=== PATIENT | male | born 1965 | race Hispanic/Latino ===

== ENCOUNTER 2017-02-28 17:55 | Inpatient (IN) | payer OTHER ==
[2017-02-28 17:56] VITALS: BMI 25.1
--- NOTE | 2017-02-28 19:08 | C.PDOC ---
History Of Present Illness A 51 year old male with a Hx of alcohol pancreatitis, diverticulitis, cholecystectomy, and a partial colectomy, presents to the ER c/o burning epigastric pain for 4 days. Patient notes symptoms are worse with food. Patient denies nausea, vomiting, diarrhea, fever, chills, trauma, or any other complaints. Time Seen by Provider: 02/28/17 19:02 Chief Complaint (Nursing): Abdominal Pain History Per: Patient History/Exam Limitations: no limitations Onset/Duration Of Symptoms: Days Current Symptoms Are (Timing): Still Present Severity: Mild Location Of Pain/Discomfort: Epigastric Quality Of Discomfort: Burning Associated Symptoms: denies: Fever, Chills Recent travel outside of the [place]: No Additional History Per: Patient Past Medical History Reviewed: Historical Data, Nursing Documentation, Vital Signs Vital Signs: Last Vital Signs Temp 97 F L 02/28/17 18:16 Pulse 135 H 02/28/17 18:16 Resp 22 02/28/17 18:16 BP 111/81 02/28/17 18:16 Pulse Ox 99 02/28/17 23:12 - Medical History PMH: Anxiety, Arthritis (right hand), Diverticulitis, Gall Bladder Disease, HTN (stable lately, no medication), Pancreatitis Denies: Chronic Kidney Disease Surgical History: Cholecystectomy - [facility] Procedures VACCINATION NEC (04/30/15) Family History: States: Unknown Family Hx - Social History Hx Tobacco Use: Yes Hx Alcohol Use: Yes Hx Substance Use: No - Immunization History Hx Tetanus Toxoid Vaccination: Yes Hx Influenza Vaccination: Yes Hx Pneumococcal Vaccination: Yes Review Of Systems Except As Marked, All Systems Reviewed And Found Negative. Constitutional: Negative for: Fever, Chills, Other (Trauma) Gastrointestinal: Positive for: Abdominal Pain (Epigastric pain). Negative for : Nausea, Vomiting, Diarrhea Physical Exam - Physical Exam Appears: Non-toxic, No Acute Distress Skin: Warm, Dry Head: Atraumatic, Normacephalic Eye(s): bilateral: Normal Inspection Cardiovascular: Rhythm Regular, No Murmur Respiratory: Normal Breath Sounds, No Rales, No Rhonchi, No Wheezing Gastrointestinal/Abdominal: Soft, Tenderness (Epigastric area), Other (Midline surgical scar of the abdomen) Neurological/Psych: Oriented x3, Normal Speech, Normal Cognition ED Course And Treatment - Laboratory Results Result Diagrams: 02/28/17 19:21 05/04/17 19:21 Lab Interpretation: Abnormal (lipase 1655, UA 61 WBC's) ECG: Interpreted By Me, Viewed By Me ECG Rhythm: Sinus Tachycardia (126 bpm) ECG Interpretation: Normal Rate From EC O2 Sat by Pulse Oximetry: 99 (RA) Pulse Ox Interpretation: Normal - Radiology CXR: Interpreted by Me CXR Interpretation: Yes: No Acute Disease - CT Scan/US CT ABd/pelvis Other Rad Studies (CT/US): Radiology Report Reviewed (c/w pancreatitis) Progress Note: rocephin, ivf's, dilaudid Reevaluation Time: 23:10 Reassessment Condition: Improved - Physician Consult Information Outcome Of Conversation: 2309: d/w Hospitalist- Dr. Blackmon- zoya to Med/surg Obs Medical Decision Making Medical Decision Making: Impression: 51 y.o c/o epigastric pain for 4 days Plans: -Blood labs -CT Abd/Pel -Pepcid -IV fluids -Zofran -UA -Reassess and disposition 2309: acute on chronic pancreatitis, ? alcoholic related initially incidental UTI (61 WBC's) Disposition Doctor Will See Patient In The: Hospital Counseled Patient/Family Regarding: Studies Performed, Diagnosis - Disposition Disposition: HOSPITALIZED Disposition Time: 23:11 Condition: GOOD - Clinical Impression Clinical Impression: Acute on chronic pancreatitis, UTI (urinary tract infection) - Scribe Statement The provider has reviewed the documentation as recorded by the Scribe Mana schofield All medical record entries made by the Scribe were at my direction and personally dictated by me. I have reviewed the chart and agree that the record accurately reflects my personal performance of the history, physical exam, medical decision making, and the department course for this patient. I have also personally directed, reviewed, and agree with the discharge instructions and disposition.
[2017-02-28] MEDS ORDERED: Sodium Chloride 0.9% 1,000 ML IV ONE ×2 (19:09→21:37)
[2017-02-28] MEDS ORDERED: Sodium Chloride 0.9% 1,000 ML ONE ×2 (19:22→22:25)
[2017-02-28 19:32] LABS: EOS # 0.1 K/uL (0.0-0.7); LYMPH # 0.8 K/uL (1.0-4.3); MEAN PLATELET VOLUME 9.1 fL (7.2-11.7); WHITE BLOOD COUNT 10.9 K/uL (4.8-10.8)
[2017-02-28 19:40] LABS: BASO % 0.1 % (0.0-2.0); EOS % 0.5 % (0.0-4.0); HEMATOCRIT 51.7 % (35.0-51.0); LYMPH % 7.7 % (20.0-40.0); MEAN CORPUSCULAR HEMOGLOBIN 27.7 pg (27.0-31.0); MEAN CORPUSCULAR HGB CONC 32.8 g/dL (33.0-37.0); MONO # 0.9 K/uL (0.0-0.8); MONO % 7.9 % (0.0-10.0); NRBC % 0.1 % (0.0-2.0); PLATELET COUNT 198 K/uL (130-400); POTASSIUM 3.7 mmol/L (3.6-5.2); RED CELL DISTRIBUTION WIDTH 17.2 % (11.5-14.5); SODIUM 130 mmol/L (132-148)
[2017-02-28 19:41] LABS: MEAN CELL VOLUME 84.6 fL (80.0-94.0)
[2017-02-28 19:42] LABS: ALB/GLOB RATIO 1.3 (1.0-2.1); ALKALINE PHOSPHATASE 83 U/L (38-126); ALT/SGPT 34 U/L (21-72); AST/SGOT 30 U/L (17-59); BLOOD UREA NITROGEN 20 mg/dL (9-20); CARBON DIOXIDE 22 mmol/L (22-30); GFR AFRICAN-AMERICAN > 60; TOTAL PROTEIN 8.1 g/dL (6.3-8.3)
[2017-02-28 19:43] LABS: ALCOHOL SERUM < 10 mg/dl (0-10); CALCIUM 9.7 mg/dl (8.6-10.4); GLUCOSE,RANDOM 115 mg/dL (75-110)
[2017-02-28] MEDS ORDERED: HYDROmorphone 0.5 mg/0.5 ml ISec IVP STA (20:16)
[2017-02-28] MEDS ORDERED: HYDROmorphone 1 mg/ml ISec ONE (20:23)
[2017-02-28 21:30] LABS: RBC URINE 9 /hpf (0-3); URINE BACTERIA MOD (<OCC); URINE BILIRUBIN 1+ (NEGATIVE); URINE BLOOD TRACE (NEGATIVE); URINE COLOR YELLOW (YELLOW); URINE GLUCOSE (UA) 1+ mg/dL (Normal); URINE HYALINE CAST >20 /lpf (0-2); URINE KETONE 1+ mg/dL (NEGATIVE); URINE LEUKOCYTE ESTERASE 2+ Leu/uL (Negative); URINE PROTEIN 2+ mg/dL (NEGATIVE); WBC CLUMPS FEW /hpf; WBC URINE 61 /hpf (0-5)
[2017-02-28] MEDS ORDERED: cefTRIAXone IV 1 gm in Dextros 50 ML IV ONE (21:38)
[2017-02-28] MEDS ORDERED: cefTRIAXone IV 1 gm in Dextros 50 ML IVPB ONE (22:25)
[2017-02-28 22:40] LABS: NEUTROPHIL 85 % (50-75); SMUDGE CELLS PRESENT; TOTAL CELLS COUNTED 100
[2017-02-28 22:42] LABS: LARGE PLATELETS PRESENT
[2017-03-01 00:44] VITALS: RESP 20
--- NOTE | 2017-03-01 02:48 | CP.PCM.HP ---
<Clif Rausch - Last Filed: 03/01/17 05:31> History of Present Illness - History of Present Illness History of Present Illness: CC: Abdominal pain x 4days HPI: 51 year old male with a PMHx of Acute on chronic pancreatitis, GERD, perforated diverticulitis, cholelithiasis with dilate CBD s/p cholecystectomy - presents c/o burning epigastric pain for 4 days. Patient states he developed abdominal pain [employer] morning, similar to prior episodes of pancreatitis. He attributes this episode to indulging in fatty foods over the weekend. He did not eat or drink in attempt to self treat himself for the pancreatitis. His pain continued to worsen, described as sharp, constant, and radiating to the back. Pain is rated a 9/10. He has not had a bowel movement in 5 days, attributed to not eating. Admits to f/c, diaphoresis, dizziness, abdominal pain radiating to back, nausea with dry heaves, and recent travel to [place]. He had similar symptoms that caused him to present to the ED on 04/13/14, 05/03/15, , and 05/27/16. He attributes his recurrent pancreatitis to his cholecystectomy 3 years ago. Denies change in vision, chest pain, SOB, vomiting , d/c, leg pain, recent sickness, trauma, or any additional complaints. PMHx: Acute on chronic pancreatitis, GERD, perforated diverticulitis, cholelithiasis with dilate CBD s/p cholecystectomy PSHx: partial colectomy with colostomy reversal, EGD, Colonoscopy (many years ago -> "normal") Meds: Prilosec 20mg PO qd. Allergies: Shellfish (hives) FamHx: unknown, adopted SocHx: Admits to ETOH cessation x 3 years. Admits he used to karen-drink on weekends with friends. Tobacco 3 cig/d x4yrs (previously 1/2ppd x25yrs). Denies drug use, lives in [facility], Unemployed former insulation worker apprentice. PMD: none Present on Admission - Present on Admission Any Indicators Present on Admission: No Review of Systems - Review of Systems Review of Systems: - Constitutional Constitutional: Chills, Fever, Diaphoresis. absent: Anorexia, Headache, Weight Loss. - EENT Eyes: absent: Blurred Vision, Diplopia, Photophobia Ears: absent: Ear Discharge, Ear Pain Nose/Mouth/Throat: absent: Dysphagia, Odynophagia, Tongue Swelling - Cardiovascular Cardiovascular: absent: Lightheadedness, Orthopnea, Palpitations, Paroxysmal Nocturnal Dyspnea, Pedal Edema - Respiratory Respiratory: absent: Hemoptysis, Dyspnea on Exertion, Chest Congestion - Gastrointestinal Gastrointestinal: Abdominal Pain, Bloating, Heartburn, Nausea. absent: Coffee Ground Emesis, Diarrhea, Dysphagia, Hematemesis, Hematochezia, Loose Stools, Melena, Odynophagia - Genitourinary Genitourinary: absent: Urinary Frequency, Urinary Urgency - Musculoskeletal Musculoskeletal: absent: Back Pain, Neck Pain, Numbness - Integumentary Integumentary: absent: Changing Lesions, Photosensitivity - Neurological Neurological: absent: Confusion, Focal Weakness, Headaches, Paresthesias - Psychiatric Psychiatric: absent: Confusion, Hallucinations - Endocrine Endocrine: absent: Excessive Sweating, Fatigue, Flushing, Palpitations, Polydipsia, Polyphagia - Hematologic/Lymphatic Hematologic: absent: Easy Bleeding, Easy Bruising Past Patient History - Infectious Disease Hx of Infectious Diseases: None - Past Medical History & Family History Past Medical History?: Yes - Past Social History Smoking Status: Current Some Days Smoker - CARDIAC Hx Cardiac Disorders: Yes Hx Hypertension: Yes (stable lately, no medication) - PULMONARY Hx Respiratory Disorders: No - NEUROLOGICAL Hx Neurological Disorder: No - HEENT Hx HEENT Problems: No - RENAL Hx Chronic Kidney Disease: No - ENDOCRINE/METABOLIC Hx Endocrine Disorders: No Hx Diabetes Mellitus Type 2: No - HEMATOLOGICAL/ONCOLOGICAL Hx Blood Disorders: No - INTEGUMENTARY Hx Dermatological Problems: No - MUSCULOSKELETAL/RHEUMATOLOGICAL Hx Musculoskeletal Disorders: Yes Hx Arthritis: Yes (right hand) Hx Falls: Yes - GASTROINTESTINAL Hx Gastrointestinal Disorders: Yes Hx Diverticulitis: Yes Hx Gall Bladder Disease: Yes Hx Pancreatitis: Yes - GENITOURINARY/GYNECOLOGICAL Hx Genitourinary Disorders: No - PSYCHIATRIC Hx Psychophysiologic Disorder: Yes Hx Anxiety: Yes Hx Substance Use: No - SURGICAL HISTORY Hx Surgeries: Yes Hx Cholecystectomy: Yes - ANESTHESIA Hx Anesthesia: Yes Hx Anesthesia Reactions: No Hx Malignant Hyperthermia: No Meds Allergies/Adverse Reactions: Allergies Allergy/AdvReac Type Severity Reaction Status Date / Time iodine Allergy Verified 02/28/17 18:15 morphine Allergy Verified 02/28/17 18:15 shellfish derived Allergy Verified 02/28/17 18:15 Physical Exam - Additional Findings Additional findings: - Head Exam Head Exam: ATRAUMATIC, NORMOCEPHALIC - Eye Exam Eye Exam: EOMI, PERRL Pupil Exam: PERRL. absent: Miosis, Mydriatic - ENT Exam ENT Exam: Mucous Membranes Dry - Neck Exam Neck exam: Positive for: Full Rom, Normal Inspection - Respiratory Exam Respiratory Exam: Clear to Auscultation Bilateral. absent: Rales, Rhonchi, Wheezes - Cardiovascular Exam Cardiovascular Exam: RRR, +S1, +S2. absent: Clicks, Diastolic murmur, Gallop - GI/Abdominal Exam GI & Abdominal Exam: Normal Bowel Sounds, Soft, Tenderness. absent: Distended, Firm, Guarding, Mass, Organomegaly, Rebound, Rigid Additional comments: -tenderness at epigastrium with radiation into the back. -Vertical mid-line incision. Horizontal LLQ incision (from colostomy). - Extremities Exam Extremities exam: Positive for: normal inspection. Negative for: pedal edema - Neurological Exam Neurological exam: Alert, Oriented x3 - Psychiatric Exam Psychiatric exam: Normal Affect, Normal Mood - Skin Skin Exam: Dry, Intact, Warm Results - Vital Signs Recent Vital Signs: Last Vital Signs Temp 98.5 F 03/01/17 00:41 Pulse 106 H 03/01/17 00:41 Resp 20 03/01/17 00:41 BP 116/79 03/01/17 00:41 Pulse Ox 130 H 03/01/17 00:41 - Labs Result Diagrams: 02/28/17 19:21 02/28/17 19:21 Assessment & Plan - Assessment and Plan (Free Text) Assessment: Pancreatitis, Acute on Chronic -Dilaudid 0.5mg IVP Q4H, PRN -D5-NS0.9-KCl 20 at 150cc/hr -Zofran 4mg IVP Q6H PRN -Abd US in AM -GI Consult, Dr. Orellana, f/u recs -Protonix 40mg IVP qd -Lipase 1655 on admission, Tibili 2, WBC 10.9 -AST/ALT/Alk P - WNL -NPO -EKG - sinus tachy -CXR - no acute disease -f/u labs, amylase, lipase -f/u CT abd/pelvis IV Contrast (pending read) - prelim read c/w pancreatitis. Dehydration -D5,NS-KCl 20 at 150cc/hr -Na 130, K3.7, anion gap 29 -> likely due to dehydration -Hgb 16.9 / Hct 51.7 -> most likely heme-concentration due to dehydration -monitor Asymptomatic UTI -UA(+) however patient is asymptomatic -Tx with Rocephin in the ED -monitor GERD -does not take home prilosec consistently -Protonix 40mg IVP qd -monitor Prophylaxis -SCDs -Hep 5000u SC Q12 -Protonix 40mg IVP qd - Date & Time Date: 02/28/17 Time: 11:30 <Yann Blackmon - Last Filed: 03/05/17 05:49> Results - Vital Signs Recent Vital Signs: Last Vital Signs Temp 98.4 F 03/03/17 08:41 Pulse 78 03/03/17 08:41 Resp 20 03/03/17 08:41 BP 145/88 03/03/17 08:41 Pulse Ox 98 03/03/17 08:41 - Labs Result Diagrams: 03/03/17 07:44 03/03/17 07:44 Attending/Attestation - Attestation I have personally seen and examined this patient.: Yes I have fully participated in the care of the patient.: Yes I have reviewed all pertinent clinical information: Yes
[2017-03-01] MEDS: HYDROmorphone 0.5 mg/0.5 ml ISec IVP PRN ×5 (03:18→23:06)
[2017-03-01] MEDS: Potassium Chloride 20 MEQ in Dextrose 5%/0.9% NS 1,000 ML IV SCH ×6 (03:27→22:17)
[2017-03-01 08:55] LABS: BASO % 0.3 % (0.0-2.0); EOS # 0.1 K/uL (0.0-0.7); EOS % 2.1 % (0.0-4.0); HEMATOCRIT 43.5 % (35.0-51.0); LYMPH # 1.3 K/uL (1.0-4.3); LYMPH % 19.8 % (20.0-40.0); MEAN CELL VOLUME 85.3 fL (80.0-94.0); MEAN CORPUSCULAR HEMOGLOBIN 27.7 pg (27.0-31.0); MEAN CORPUSCULAR HGB CONC 32.5 g/dL (33.0-37.0); MEAN PLATELET VOLUME 8.9 fL (7.2-11.7); MONO # 0.7 K/uL (0.0-0.8); MONO % 11.5 % (0.0-10.0); NRBC % 0.1 % (0.0-2.0); RED CELL DISTRIBUTION WIDTH 16.9 % (11.5-14.5); WHITE BLOOD COUNT 6.4 K/uL (4.8-10.8)
[2017-03-01 09:11] LABS: CHLORIDE 98 mmol/L (98-107); POTASSIUM 3.4 mmol/L (3.6-5.2); SODIUM 133 mmol/L (132-148)
[2017-03-01 09:13] LABS: ALB/GLOB RATIO 1.2 (1.0-2.1); ALKALINE PHOSPHATASE 61 U/L (38-126); AMYLASE 191 U/L (30-110); AST/SGOT 25 U/L (17-59); BILIRUBIN,TOTAL 1.6 mg/dL (0.2-1.3); CARBON DIOXIDE 23 mmol/L (22-30); GFR AFRICAN-AMERICAN > 60; TOTAL PROTEIN 6.5 g/dL (6.3-8.3)
[2017-03-01 09:14] LABS: ALT/SGPT 16 U/L (21-72); BLOOD UREA NITROGEN 15 mg/dL (9-20); CALCIUM 8.5 mg/dl (8.6-10.4); GLUCOSE,RANDOM 93 mg/dL (75-110); MAGNESIUM 1.8 mg/dL (1.6-2.3); PHOSPHOROUS 2.9 mg/dL (2.5-4.5)
--- NOTE | 2017-03-01 10:10 | CT ---
PROCEDURE: CT Abdomen and Pelvis with contrast HISTORY: epigastric, h/o pancreatitis, colectomy COMPARISON: Comparison is made to the previous study dated 04/30/2015 TECHNIQUE: Contrast dose: 100 cc Visipaque 320. Axial and reformatted coronal and sagittal CT images of the abdomen and pelvis were obtained after IV contrast administration. Radiation dose: Total exam DLP = 414.98 mGy-cm. This CT exam was performed using one or more of the following dose reduction techniques: Automated exposure control, adjustment of the mA and/or kV according to patient size, and/or use of iterative reconstruction technique. FINDINGS: LOWER THORAX: No evidence of acute pathology. LIVER: Mild hepatomegaly and findings consistent with moderate hepatic steatosis are again noted. No evidence of liver mass. GALLBLADDER AND BILE DUCTS: Status post cholecystectomy. Mildly dilated common bile duct. PANCREAS: Moderate inflammatory changes surrounding the pancreatic body and head consistent with acute pancreatitis. Scattered foci of calcifications seen in the pancreas suggestive of chronic pancreatitis. The main pancreatic duct is mildly dilated. SPLEEN: Unremarkable. ADRENALS: Unremarkable. No mass. KIDNEYS AND URETERS: Low-attenuation likely cystic lesions seen at the mid to upper pole left kidney. No evidence of hydronephrosis. The kidneys enhance symmetrically. VASCULATURE: Unremarkable. No aortic aneurysm. BOWEL: No evidence of acute pathology. Colonic diverticulosis are noted without evidence of diverticulitis. APPENDIX: No evidence of appendicitis. PERITONEUM: Trace free fluid seen in the upper abdomen likely due to acute pancreatitis. No evidence of free air. LYMPH NODES: Unremarkable. No enlarged lymph nodes. BLADDER: The urinary bladder is not fully distended therefore cannot be evaluated. REPRODUCTIVE: Unremarkable. BONES: No acute fracture. Again seen is dislocation/subluxation in between 1st and 2nd vertebrae of the coccyx. OTHER FINDINGS: None. IMPRESSION: Findings consistent with acute pancreatitis. Trace amount of free fluid in the upper abdomen. Foci of calcification in the pancreas consistent with chronic pancreatitis. Mildly dilated main pancreatic duct. Otherwise no significant interval change since the previous exam. Preliminary report was submitted by [facility].
[2017-03-01 11:07] LABS: INR 1.3
--- NOTE | 2017-03-01 11:59 | CP.PCM.CON ---
<Colleen Powers - Last Filed: 03/01/17 12:46> History of Present Illness - History of Present Illness History of Present Illness: Gastroenterology Fellow/PGY4 Consult Note 51 year old male with history of tobacco abuse, perforated diverticulitis s/p partial colectomy and colostomy reversal, chronic pancreatitis with recurrent flare, tobacco abuse, dialted CBD s/p cholecystectomy presenting with epigastric pain. He describes sudden onset of stabbing epigastric pain Saturday morning with progressive worsening, pain scale 9/10, leading to ER presentation on Saturday. Notes eating a lot of cheese base foods on Saturday at a constitution party but enies alcohol intake with endorsed sobriety for three years. Notes symptoms similar to prior pancreatitis episodes. similar to prior episodes of pancreatitis. He did not eat or drink in attempt to self treat himself for pancreatitis. Attempted self treatment by not eating or drinking since Saturday with no relief. Last bowel movement was Saturday with udual daily bowel movements. Denies nausea, vomiting, hematemesis, diarrhea, constipation, hematochezia, melena, chills, sweats, or unintentional weight loss. Notes a ten pound intentional weight loss. Prior EGD and colonoscopy/sigmoidoscopy? endorsed to be normal over ten years ago. Family-adopted, believes mother- breast cancer, cholecystectomy, possible pancreatic issues? Social-previous 1ppd x 30 years, current 3 cigarettes/day x 1 year, quit ETOH 3 years, denies illicit drugs Surgery-colectomy with colostomy reversal, cholecystectomy Review of Systems - Review of Systems Review of Systems: A 12-point review of systems negative except for as above Past Patient History - Infectious Disease Hx of Infectious Diseases: None - Past Medical History & Family History Past Medical History?: Yes - Past Social History Smoking Status: Current Some Days Smoker - CARDIAC Hx Cardiac Disorders: Yes Hx Hypertension: Yes (stable lately, no medication) - PULMONARY Hx Respiratory Disorders: No - NEUROLOGICAL Hx Neurological Disorder: No - HEENT Hx HEENT Problems: No - RENAL Hx Chronic Kidney Disease: No - ENDOCRINE/METABOLIC Hx Endocrine Disorders: No Hx Diabetes Mellitus Type 2: No - HEMATOLOGICAL/ONCOLOGICAL Hx Blood Disorders: No - INTEGUMENTARY Hx Dermatological Problems: No - MUSCULOSKELETAL/RHEUMATOLOGICAL Hx Musculoskeletal Disorders: Yes Hx Arthritis: Yes (right hand) Hx Falls: Yes - GASTROINTESTINAL Hx Gastrointestinal Disorders: Yes Hx Diverticulitis: Yes Hx Gall Bladder Disease: Yes Hx Pancreatitis: Yes - GENITOURINARY/GYNECOLOGICAL Hx Genitourinary Disorders: No - PSYCHIATRIC Hx Psychophysiologic Disorder: Yes Hx Anxiety: Yes Hx Substance Use: No - SURGICAL HISTORY Hx Surgeries: Yes Hx Cholecystectomy: Yes - ANESTHESIA Hx Anesthesia: Yes Hx Anesthesia Reactions: No Hx Malignant Hyperthermia: No Meds Allergies/Adverse Reactions: Allergies Allergy/AdvReac Type Severity Reaction Status Date / Time iodine Allergy Verified 02/28/17 18:15 morphine Allergy Verified 02/28/17 18:15 shellfish derived Allergy Verified 02/28/17 18:15 - Medications Medications: Current Medications Heparin Sodium (Porcine) (Heparin) 5,000 units SC Q12 [facility] Last Admin: 03/01/17 11:29 Dose: 5,000 units Hydromorphone HCl (Dilaudid) 0.5 mg IVP Q4H PRN PRN Reason: Pain, moderate (4-7) Last Admin: 03/01/17 09:34 Dose: 0.5 mg Potassium Chloride 20 meq/ (Dextrose/Sodium Chloride) 1,010 mls @ 200 mls/hr IV .Q5H3M [facility] Last Admin: 03/01/17 11:11 Dose: Not Given Ondansetron HCl (Zofran Inj) 4 mg IVP Q6H PRN PRN Reason: Nausea/Vomiting Pantoprazole Sodium (Protonix Inj) 40 mg IVP DAILY [facility] Last Admin: 03/01/17 09:36 Dose: 40 mg Physical Exam - Constitutional Appears: Non-toxic, No Acute Distress - Head Exam Head Exam: ATRAUMATIC, NORMOCEPHALIC - Eye Exam Eye Exam: EOMI, PERRL Pupil Exam: PERRL. absent: Miosis, Mydriatic - ENT Exam ENT Exam: Mucous Membranes Moist, Normal Oropharynx - Neck Exam Neck exam: Positive for: Full Rom, Normal Inspection - Respiratory Exam Respiratory Exam: Clear to Auscultation Bilateral. absent: Rales, Rhonchi, Wheezes - Cardiovascular Exam Cardiovascular Exam: RRR, +S1, +S2. absent: Gallop, Rubs - GI/Abdominal Exam GI & Abdominal Exam: Normal Bowel Sounds, Organomegaly, Soft, Tenderness. absent: Firm, Guarding, Rebound, Rigid Additional comments: hepatomegaly, B/L UQ and mid-epigastric discomfort - Extremities Exam Extremities exam: Positive for: full ROM. Negative for: pedal edema - Neurological Exam Neurological exam: Alert, Oriented x3 - Psychiatric Exam Psychiatric exam: Normal Affect, Normal Mood - Skin Skin Exam: Dry, Intact, Normal Color, Warm Results - Vital Signs Recent Vital Signs: Last Vital Signs Temp 98.6 F 03/01/17 08:21 Pulse 100 H 03/01/17 08:21 Resp 20 03/01/17 08:21 BP 133/76 03/01/17 08:21 Pulse Ox 99 03/01/17 08:21 - Labs Result Diagrams: 03/01/17 08:32 03/01/17 08:32 Labs: Laboratory Results - last 24 hr 03/01/17 03/01/17 03/01/17 08:32 08:32 08:32 WBC 6.4 RBC 5.10 Hgb 14.1 D Hct 43.5 MCV 85.3 MCH 27.7 MCHC 32.5 L RDW 16.9 H Plt Count 137 MPV 8.9 Neut % (Auto) 66.3 Lymph % (Auto) 19.8 L Graves % (Auto) 11.5 H Eos % (Auto) 2.1 Baso % (Auto) 0.3 Neut # 4.2 Lymph # 1.3 Graves # 0.7 Eos # 0.1 Baso # 0.0 PT 14.2 H INR 1.3 APTT 38 H Sodium 133 Potassium 3.4 L Chloride 98 Carbon Dioxide 23 Anion Gap 15 BUN 15 Creatinine 0.6 L Est GFR ( Amer) > 60 Est GFR (Non-Af Amer) > 60 Random Glucose 93 Calcium 8.5 L Phosphorus 2.9 Magnesium 1.8 Total Bilirubin 1.6 H AST 25 ALT 16 L D Alkaline Phosphatase 61 Total Protein 6.5 Albumin 3.6 Globulin 2.9 Albumin/Globulin Ratio 1.2 Amylase 191 H D Lipase 449 H Assessment & Plan - Assessment and Plan (Free Text) Assessment: 51 year old male with history of tobacco abuse, perforated diverticulitis s/p partial colectomy and colostomy reversal, chronic pancreatitis with recurrent flare, tobacco abuse, dialted CBD s/p cholecystectomy presenting with epigastric pain. Active treatment of acute on chronic pancreatitis. Prior EGD and colonoscopy/sigmoidoscopy? endorsed to be normal over ten years ago. Plan: >MRCP 2015- 4.4cm pancreatic tail lesion/pseudocyst >CT Pancreas protocol April 2016- no lesions noted >02/28/17 CT A/P IV contrast- pancreatic body inflammation >continue aggressive IVFs- LR 200cc/hr >pending abdominal Ultrasound >ordered IgG4, direct bilirubin >trial clear liquids for dinner, advance diet as tolerated >supportive care: antiemetics, pain control, PPI >negative ETOH, urine drug screen >lost to outpatient follow up 04/2016 >counselled on tobacco cessation >endorsed alcohol sobriety, counselled on cessation >UTI-primary team managing >further recommendations based on clinical course <Chavez Dhillon - Last Filed: 03/01/17 12:54> Meds - Medications Medications: Current Medications Heparin Sodium (Porcine) (Heparin) 5,000 units SC Q12 [facility] Last Admin: 03/01/17 11:29 Dose: 5,000 units Hydromorphone HCl (Dilaudid) 0.5 mg IVP Q4H PRN PRN Reason: Pain, moderate (4-7) Last Admin: 03/01/17 09:34 Dose: 0.5 mg Potassium Chloride 20 meq/ (Dextrose/Sodium Chloride) 1,010 mls @ 200 mls/hr IV .Q5H3M [facility] Last Admin: 03/01/17 11:11 Dose: Not Given Ondansetron HCl (Zofran Inj) 4 mg IVP Q6H PRN PRN Reason: Nausea/Vomiting Pantoprazole Sodium (Protonix Inj) 40 mg IVP DAILY [facility] Last Admin: 03/01/17 09:36 Dose: 40 mg Results - Vital Signs Recent Vital Signs: Last Vital Signs Temp 98.6 F 03/01/17 08:21 Pulse 100 H 03/01/17 08:21 Resp 20 03/01/17 08:21 BP 133/76 03/01/17 08:21 Pulse Ox 99 03/01/17 08:21 - Labs Result Diagrams: 03/01/17 08:32 03/01/17 08:32 Labs: Laboratory Results - last 24 hr 03/01/17 03/01/17 03/01/17 08:32 08:32 08:32 WBC 6.4 RBC 5.10 Hgb 14.1 D Hct 43.5 MCV 85.3 MCH 27.7 MCHC 32.5 L RDW 16.9 H Plt Count 137 MPV 8.9 Neut % (Auto) 66.3 Lymph % (Auto) 19.8 L Graves % (Auto) 11.5 H Eos % (Auto) 2.1 Baso % (Auto) 0.3 Neut # 4.2 Lymph # 1.3 Graves # 0.7 Eos # 0.1 Baso # 0.0 PT 14.2 H INR 1.3 APTT 38 H Sodium 133 Potassium 3.4 L Chloride 98 Carbon Dioxide 23 Anion Gap 15 BUN 15 Creatinine 0.6 L Est GFR ( Amer) > 60 Est GFR (Non-Af Amer) > 60 Random Glucose 93 Calcium 8.5 L Phosphorus 2.9 Magnesium 1.8 Total Bilirubin 1.6 H AST 25 ALT 16 L D Alkaline Phosphatase 61 Total Protein 6.5 Albumin 3.6 Globulin 2.9 Albumin/Globulin Ratio 1.2 Amylase 191 H D Lipase 449 H Attending/Attestation - Attestation I have personally seen and examined this patient.: Yes I have fully participated in the care of the patient.: Yes I have reviewed all pertinent clinical information: Yes Notes (Text): Patient seen and examined with GI fellow. Agree with her note as documented above with the following additions/exceptions. This is a 51 year old male with history of perforated diverticulitis s/p partial colectomy and colostomy reversal, chronic pancreatitis, h/o cholecystectomy who is admitted with abdominal pain. He also has history of pancreatic fluid collection/cyst seen on previous imaging (2014) that was no longer present on MRCP 2016. He has had 4-5 episodes of pancreatitis (he states that these started after cholecystectomy). He reports that in between these episodes he has no GI complaints. No weight loss or diarrhea. He denies ETOH consumption prior to this episode. He is found to have CT evidence of pancreatitis with elevated lipase and T bili. Will obtain abdominal sonogram for further investigation. Fractionate bili and obtain IGG4 level. He states that his abdominal pain is overall improved today , will try clear liquids. Continue supportive care with IVF hydration, pain control and antiemetic thera py as needed. He was counselled about importance of ETOH avoidance and cessation of cigarette smoking. 03/01/17 12:53
--- NOTE | 2017-03-01 13:06 | US ---
HISTORY: Pancreatitis COMPARISON: 05/24/2016 abdominal ultrasound. TECHNIQUE: Sonographic evaluation of the abdomen. FINDINGS: LIVER: Measures 15.5 cm. Hepatopedal blood flow. Fatty infiltration manifest ultrasonographically as increased echogenicity of the liver parenchyma. No mass. No intrahepatic bile duct dilatation. GALLBLADDER: Status post cholecystectomy. No abnormality is seen in the gallbladder fossa. COMMON BILE DUCT: Measures 10.6 mm. Dilated common duct similar to that seen on the prior study. PANCREAS: Obscured by overlying bowel gas. Non diagnostic assessment of the pancreas RIGHT KIDNEY: Measures 6.3 x 13.1cm. Normal echogenicity. No calculus, mass, or hydronephrosis. LEFT KIDNEY: Measures 6.4 x 13.8cm. Normal echogenicity. No calculus, mass, or hydronephrosis.Incidental finding(s): Midpole cysts 1.2 x 1.5 cm, 1.2 x 1.52 cm. SPLEEN: Normal in size and contour. No mass. AORTA: No aneurysmal dilatation. IVC: Unremarkable. OTHER FINDINGS: No acute findings related to/accounting for the clinical presentation. No significant interval change compared to the prior examination(s). IMPRESSION: Unremarkable abdominal sonogram.
--- NOTE | 2017-03-01 16:18 | RAD ---
PROCEDURE: CHEST RADIOGRAPH, 1 VIEW HISTORY: abd pain COMPARISON: Comparison is made to the previous study dated 05/24/2016 FINDINGS: LUNGS: Clear. PLEURA: No pneumothorax or pleural fluid seen. CARDIOVASCULAR: Normal. OSSEOUS STRUCTURES: No significant abnormalities. VISUALIZED UPPER ABDOMEN: Normal. OTHER FINDINGS: None. IMPRESSION: No active disease.
--- NOTE | 2017-03-01 17:08 | CARD ---
APPROVED REPORT EKG Measurement Heart [id number] <Conclusion> Sinus tachycardia Otherwise normal ECG
[2017-03-01 17:24] LABS: CHLORIDE 89 mmol/L (98-107)
--- NOTE | 2017-03-01 18:08 | CP.PCM.PN ---
<Vivek Delgadilloy - Last Filed: 03/01/17 18:04> Subjective - Date & Time of Evaluation Date of Evaluation: 03/01/17 Time of Evaluation: 07:45 - Subjective Subjective: PGY-1 Medicine Progress Note for Dr. Parnell Patient seen and examined at bedside. No acute event overnight. Patient resting in bed comfortably. He is still complaining of epigastric pain radiating to back. He states that it is controlled with morphine. Patient is NPO. Admits to nausea but no vomiting. Denies fever/chills, cp, sob, palpitations, diarrhea, constipation. Objective - Vital Signs/Intake and Output Vital Signs (last 24 hours): Temp Pulse Resp BP Pulse Ox 98.6 F 100 H 20 133/76 99 03/01/17 08:21 03/01/17 08:21 03/01/17 08:21 03/01/17 08:21 03/01/17 08:21 Intake and Output: 03/01/17 03/01/17 06:59 18:59 Intake Total 1900 Balance 1900 - Medications Medications: Current Medications Heparin Sodium (Porcine) (Heparin) 5,000 units SC Q12 [facility] Last Admin: 03/01/17 11:29 Dose: 5,000 units Hydromorphone HCl (Dilaudid) 0.5 mg IVP Q4H PRN PRN Reason: Pain, moderate (4-7) Last Admin: 03/01/17 15:01 Dose: 0.5 mg Potassium Chloride 20 meq/ (Dextrose/Sodium Chloride) 1,010 mls @ 200 mls/hr IV .Q5H3M [facility] Last Admin: 03/01/17 16:14 Dose: 200 mls/hr Ceftriaxone Sodium (Rocephin Iv 1 Gm Duplex) 50 mls @ 100 mls/hr IVPB Q12 [facility] Ondansetron HCl (Zofran Inj) 4 mg IVP Q6H PRN PRN Reason: Nausea/Vomiting Pantoprazole Sodium (Protonix Inj) 40 mg IVP DAILY [facility] Last Admin: 03/01/17 09:36 Dose: 40 mg - Labs Labs: 03/01/17 08:32 03/01/17 08:32 PT 14.2 SECONDS (9.7-12.2) H 03/01/17 08:32 INR 1.3 03/01/17 08:32 APTT 38 SECONDS (21-34) H 03/01/17 08:32 - Constitutional Appears: No Acute Distress - Head Exam Head Exam: ATRAUMATIC, NORMOCEPHALIC - Eye Exam Eye Exam: EOMI, Normal appearance. absent: Scleral icterus Pupil Exam: PERRL - ENT Exam ENT Exam: Mucous Membranes Moist - Neck Exam Neck Exam: Normal Inspection - Respiratory Exam Respiratory Exam: Clear to Ausculation Bilateral, NORMAL BREATHING PATTERN - Cardiovascular Exam Cardiovascular Exam: REGULAR RHYTHM, +S1, +S2 - GI/Abdominal Exam GI & Abdominal Exam: Soft, Tenderness, Normal Bowel Sounds. absent: Distended, Firm, Guarding, Rigid, Rebound - Extremities Exam Extremities Exam: Normal Capillary Refill - Back Exam Back Exam: absent: CVA tenderness (L), CVA tenderness (R) - Neurological Exam Neurological Exam: Alert, Awake, CN II-XII Intact, Oriented x3 - Psychiatric Exam Psychiatric exam: Normal Affect, Normal Mood - Skin Skin Exam: Dry, Intact, Normal Color, Warm Assessment and Plan - Assessment and Plan (Free Text) Plan: Pancreatitis, Acute on Chronic Dilaudid 0.5mg IVP Q4H, PRN D5-NS0.9-KCl 20 at 200cc/hr Zofran 4mg IVP Q6H PRN Abd US: Unremarkable abdominal sonogram. (see full report) GI Consult, Dr. Orellana, f/u recs Protonix 40mg IVP qd Lipase 1655 on admission IgG subclass 4 AST/ALT/Alk P - WNL NPO EKG - sinus tachy CXR - no acute disease f/u labs daily CT abd/pelvis IV Contrast: acute on chronic pancreatitis (see full report) Dehydration D5,NS-KCl 20 at 150cc/hr monitor electrolytes Asymptomatic UTI UA(+) however patient is asymptomatic Tx with Rocephin urine culture gram negative rods monitor GERD does not take home prilosec consistently Protonix 40mg IVP qd monitor Prophylaxis SCDs Hep 5000u SC Q12 Protonix 40mg IVP qd <Rafita Parnell - Last Filed: 03/30/17 10:17> Objective - Vital Signs/Intake and Output Vital Signs (last 24 hours): Temp Pulse Resp BP Pulse Ox 98.4 F 78 20 145/88 98 03/03/17 08:41 03/03/17 08:41 03/03/17 08:41 03/03/17 08:41 03/03/17 08:41 - Labs Labs: 03/03/17 07:44 03/03/17 07:44 PT 14.2 SECONDS (9.7-12.2) H 03/01/17 08:32 INR 1.3 03/01/17 08:32 APTT 38 SECONDS (21-34) H 03/01/17 08:32 Attending/Attestation - Attestation I have personally seen and examined this patient.: Yes I have fully participated in the care of the patient.: Yes I have reviewed all pertinent clinical information, including history, physical exam and plan: Yes Notes (Text): Patient seen and examined with the resident. Agree with the resident's evaluation, assessment and plan. Pancreatitis, Acute on Chronic Dehydration Asymptomatic UTI
[2017-03-01] MEDS: cefTRIAXone IV 1 gm in Dextros 50 ML IVPB SCH (21:09)
[2017-03-02] MEDS: Potassium Chloride 20 MEQ in Dextrose 5%/0.9% NS 1,000 ML IV SCH ×6 (01:20→21:28)
[2017-03-02] MEDS: HYDROmorphone 0.5 mg/0.5 ml ISec IVP PRN ×4 (06:40→21:21)
[2017-03-02 07:24] LABS: BASO % 0.8 % (0.0-2.0); EOS # 0.1 K/uL (0.0-0.7); EOS % 3.5 % (0.0-4.0); HEMATOCRIT 43.3 % (35.0-51.0); LYMPH # 1.1 K/uL (1.0-4.3); MEAN CELL VOLUME 86.2 fL (80.0-94.0); MEAN CORPUSCULAR HEMOGLOBIN 27.8 pg (27.0-31.0); MEAN CORPUSCULAR HGB CONC 32.2 g/dL (33.0-37.0); MEAN PLATELET VOLUME 9.4 fL (7.2-11.7); MONO # 0.5 K/uL (0.0-0.8); MONO % 13.8 % (0.0-10.0); NRBC % 0.2 % (0.0-2.0); RED CELL DISTRIBUTION WIDTH 16.7 % (11.5-14.5); WHITE BLOOD COUNT 3.8 K/uL (4.8-10.8)
[2017-03-02 07:34] LABS: CHLORIDE 98 mmol/L (98-107); POTASSIUM 3.6 mmol/L (3.6-5.2); SODIUM 136 mmol/L (132-148)
[2017-03-02 07:36] LABS: ALB/GLOB RATIO 1.1 (1.0-2.1); AMYLASE 92 U/L (30-110); AST/SGOT 32 U/L (17-59); BLOOD UREA NITROGEN 4 mg/dL (9-20); CARBON DIOXIDE 28 mmol/L (22-30); GFR AFRICAN-AMERICAN > 60; TOTAL PROTEIN 6.2 g/dL (6.3-8.3)
[2017-03-02 07:37] LABS: ALKALINE PHOSPHATASE 56 U/L (38-126); ALT/SGPT 34 U/L (21-72); CALCIUM 8.1 mg/dl (8.6-10.4); GLUCOSE,RANDOM 108 mg/dL (75-110); MAGNESIUM 1.7 mg/dL (1.6-2.3); PHOSPHOROUS 2.9 mg/dL (2.5-4.5)
--- NOTE | 2017-03-02 08:49 | CP.PCM.PN ---
<Syed Encinas - Last Filed: 03/02/17 12:23> Subjective - Date & Time of Evaluation Date of Evaluation: 03/02/17 Time of Evaluation: 10:20 - Subjective Subjective: PGY4 GI Fellow Progress Note Patient seen and examined bedside this morning. The patient denies any new issues overnight. Some abdominal pain persists today, relieved with PRN analgesics. No nausea, vomiting. Tolerating liquid diet, eager to advance. 12 system ROS performed and negative except where stated. Objective - Vital Signs/Intake and Output Vital Signs (last 24 hours): Temp Pulse Resp BP Pulse Ox 97.2 F L 83 20 138/89 97 03/02/17 08:14 03/02/17 08:14 03/02/17 08:14 03/02/17 08:14 03/02/17 08:14 Intake and Output: 03/02/17 03/02/17 06:59 18:59 Intake Total 1800 1780 Balance 1800 1780 - Medications Medications: Current Medications Heparin Sodium (Porcine) (Heparin) 5,000 units SC Q12 [facility] Last Admin: 03/01/17 21:09 Dose: 5,000 units Hydromorphone HCl (Dilaudid) 0.5 mg IVP Q4H PRN PRN Reason: Pain, moderate (4-7) Last Admin: 03/02/17 06:40 Dose: 0.5 mg Potassium Chloride 20 meq/ (Dextrose/Sodium Chloride) 1,010 mls @ 200 mls/hr IV .Q5H3M [facility] Last Admin: 03/02/17 06:30 Dose: Not Given Ceftriaxone Sodium (Rocephin Iv 1 Gm Duplex) 50 mls @ 100 mls/hr IVPB Q12 [facility] Last Admin: 03/01/17 21:09 Dose: 100 mls/hr Ondansetron HCl (Zofran Inj) 4 mg IVP Q6H PRN PRN Reason: Nausea/Vomiting Pantoprazole Sodium (Protonix Inj) 40 mg IVP DAILY [facility] Last Admin: 03/01/17 09:36 Dose: 40 mg - Labs Labs: 03/02/17 07:11 03/02/17 07:11 PT 14.2 SECONDS (9.7-12.2) H 03/01/17 08:32 INR 1.3 03/01/17 08:32 APTT 38 SECONDS (21-34) H 03/01/17 08:32 - Constitutional Appears: Non-toxic, No Acute Distress - Eye Exam Eye Exam: EOMI, PERRL - ENT Exam ENT Exam: Mucous Membranes Moist - Respiratory Exam Respiratory Exam: Clear to Ausculation Bilateral. absent: Rales, Rhonchi, Wheezes - Cardiovascular Exam Cardiovascular Exam: RRR, +S1, +S2 - GI/Abdominal Exam GI & Abdominal Exam: Soft, Tenderness (epigastric), Normal Bowel Sounds. absent : Distended, Firm, Guarding, Rigid, Organomegaly - Extremities Exam Extremities Exam: Normal Inspection. absent: Pedal Edema - Neurological Exam Neurological Exam: Alert, Awake, Oriented x3 - Psychiatric Exam Psychiatric exam: Normal Affect, Normal Mood - Skin Skin Exam: Dry, Warm Assessment and Plan - Assessment and Plan (Free Text) Assessment: Patient is a 51yo male with PMHx significant for chronic pancreatitis or undetermined etiology, complicated diverticulitis s/p partial colectomy w colostomy and eventual reversal/reanastamosis, tobacco abuse who presented to the ED with epigastric pain. -Acute on chronic pancreatitis -Urinary tract infection -H/O complicated diverticulitis s/p resection/colostomy/reversal -Tobacco abuse Plan: -Continue with aggressive IVF -Advance diet to low residue, soft diet; continue to advance as tolerated -Awaiting IgG4, R/O autoimmune pancreatitis -No need to trend Lipase/amylase -Check MRCP, R/O pancreas divisum -Consider outpatient EUS -Unclear etiology of UTI; consider colonoscopy after D/C - though no overt evidence of fistula <Anthony Flores MD - Last Filed: 03/02/17 15:10> Objective - Vital Signs/Intake and Output Vital Signs (last 24 hours): Temp Pulse Resp BP Pulse Ox 97.2 F L 83 20 138/89 97 03/02/17 08:14 03/02/17 08:14 03/02/17 08:14 03/02/17 08:14 03/02/17 08:14 Intake and Output: 03/02/17 03/02/17 06:59 18:59 Intake Total 1800 1780 Balance 1800 1780 - Medications Medications: Current Medications Heparin Sodium (Porcine) (Heparin) 5,000 units SC Q12 [facility] Last Admin: 03/02/17 10:38 Dose: 5,000 units Hydromorphone HCl (Dilaudid) 0.5 mg IVP Q4H PRN PRN Reason: Pain, moderate (4-7) Last Admin: 03/02/17 10:37 Dose: 0.5 mg Potassium Chloride 20 meq/ (Dextrose/Sodium Chloride) 1,010 mls @ 200 mls/hr IV .Q5H3M [facility] Last Admin: 03/02/17 10:44 Dose: 200 mls/hr Ceftriaxone Sodium (Rocephin Iv 1 Gm Duplex) 50 mls @ 100 mls/hr IVPB Q12 [facility] Last Admin: 03/02/17 10:37 Dose: 100 mls/hr Ondansetron HCl (Zofran Inj) 4 mg IVP Q6H PRN PRN Reason: Nausea/Vomiting Pantoprazole Sodium (Protonix Inj) 40 mg IVP DAILY [facility] Last Admin: 03/02/17 10:38 Dose: 40 mg - Labs Labs: 03/02/17 07:11 03/02/17 07:11 PT 14.2 SECONDS (9.7-12.2) H 03/01/17 08:32 INR 1.3 03/01/17 08:32 APTT 38 SECONDS (21-34) H 03/01/17 08:32 Attending/Attestation - Attestation I have personally seen and examined this patient.: Yes I have fully participated in the care of the patient.: Yes I have reviewed all pertinent clinical information, including history, physical exam and plan: Yes Notes (Text): 03/02/17 15:04 Patient seen and examined with GI fellow. This is a 51 year old male with history of perforated diverticulitis s/p partial colectomy and colostomy reversal in 2006, chronic pancreatitis, h/o cholecystectomy in 2012, who is admitted with abdominal pain. Past imaging with pancreatic fluid collection. Last alcohol drink 3 years ago. No weight loss or diarrhea. He is found to have CT evidence of pancreatitis with elevated lipase and T bilirubin. Will obtain IgG4 and MRCP to rule out pancreatic divisum. He states that his abdominal pain is overall improved today, will advance to full liquids. If able to tolerate advanced diet will discharge. Councelled regarding smoking and alcohol cessation.
[2017-03-02] MEDS: cefTRIAXone IV 1 gm in Dextros 50 ML IVPB SCH ×2 (10:37→21:20)
--- NOTE | 2017-03-02 15:04 | CP.PCM.PN ---
Addendum entered and electronically signed by Cassia Grewal DO 03/02/17 15: 48: MRCP ordered by GI. Patient will be NPO in AM Original Note: <Cassia Grewal - Last Filed: 03/02/17 14:48> Subjective - Date & Time of Evaluation Date of Evaluation: 03/02/17 Time of Evaluation: 10:25 - Subjective Subjective: PGY2 Medicine Note - Dr. Santiago's service: Patient seen and examined at bedside this AM. Patient very concerned about his asymptomatic UTI. Patient reports mild abdominal pain. He says pain does not increase with intake of clear liquids and he does not have any nausea or vomiting. Patient denies fever, chills, chest pain, SOB. Objective - Vital Signs/Intake and Output Vital Signs (last 24 hours): Temp Pulse Resp BP Pulse Ox 97.2 F L 83 20 138/89 97 03/02/17 08:14 03/02/17 08:14 03/02/17 08:14 03/02/17 08:14 03/02/17 08:14 Intake and Output: 03/02/17 03/02/17 06:59 18:59 Intake Total 1800 1780 Balance 1800 1780 - Medications Medications: Current Medications Heparin Sodium (Porcine) (Heparin) 5,000 units SC Q12 [facility] Last Admin: 03/02/17 10:38 Dose: 5,000 units Hydromorphone HCl (Dilaudid) 0.5 mg IVP Q4H PRN PRN Reason: Pain, moderate (4-7) Last Admin: 03/02/17 10:37 Dose: 0.5 mg Potassium Chloride 20 meq/ (Dextrose/Sodium Chloride) 1,010 mls @ 200 mls/hr IV .Q5H3M [facility] Last Admin: 03/02/17 10:44 Dose: 200 mls/hr Ceftriaxone Sodium (Rocephin Iv 1 Gm Duplex) 50 mls @ 100 mls/hr IVPB Q12 [facility] Last Admin: 03/02/17 10:37 Dose: 100 mls/hr Ondansetron HCl (Zofran Inj) 4 mg IVP Q6H PRN PRN Reason: Nausea/Vomiting Pantoprazole Sodium (Protonix Inj) 40 mg IVP DAILY [facility] Last Admin: 03/02/17 10:38 Dose: 40 mg - Labs Labs: 03/02/17 07:11 03/02/17 07:11 PT 14.2 SECONDS (9.7-12.2) H 03/01/17 08:32 INR 1.3 03/01/17 08:32 APTT 38 SECONDS (21-34) H 03/01/17 08:32 - Constitutional Appears: Non-toxic, No Acute Distress - Head Exam Head Exam: NORMAL INSPECTION - Eye Exam Eye Exam: EOMI - ENT Exam ENT Exam: Mucous Membranes Moist - Respiratory Exam Respiratory Exam: Clear to Ausculation Bilateral, NORMAL BREATHING PATTERN. absent: Rales, Rhonchi, Wheezes - Cardiovascular Exam Cardiovascular Exam: REGULAR RHYTHM, +S1, +S2. absent: Gallop, Rubs, Murmur - GI/Abdominal Exam GI & Abdominal Exam: Soft, Tenderness, Normal Bowel Sounds - Extremities Exam Extremities Exam: Normal Capillary Refill. absent: Pedal Edema - Neurological Exam Neurological Exam: Alert, Awake, Oriented x3 - Psychiatric Exam Psychiatric exam: Normal Affect, Normal Mood - Skin Skin Exam: Normal Color, Warm Assessment and Plan - Assessment and Plan (Free Text) Assessment: Pancreatitis, Acute on Chronic Lipase 1655 on admission AST/ALT/Alk Phos - WNL Abd US: Unremarkable abdominal sonogram. (see full report) CT abd/pelvis IV Contrast: acute on chronic pancreatitis (see full report) Dilaudid 0.5mg IVP Q4H, PRN D5-NS0.9-KCl 20 at 200cc/hr Zofran 4mg IVP Q6H PRN Protonix 40mg IVP qd GI Consult, Dr. Fisher, help appreciated Advanced to low fiber low fat diet for dinner F/U IgG subclass 4 F/u labs daily Homer Score: 1 --> 1% mortality Dehydration D5,NS-KCl 20 at 200cc/hr monitor electrolytes Asymptomatic UTI UA(+) however patient is asymptomatic Tx with Rocephin urine culture gram negative rods May need colonoscopy as outpateint to assess for colon-bladder fistula per GI monitor GERD does not take home prilosec consistently Protonix 40mg IVP daily monitor Prophylaxis SCDs Hep 5000u SC Q12 Protonix 40mg IVP daily <Clif Santiago H - Last Filed: 03/02/17 18:14> Objective - Vital Signs/Intake and Output Vital Signs (last 24 hours): Temp Pulse Resp BP Pulse Ox 98.2 F 78 20 126/86 98 03/02/17 16:00 03/02/17 16:00 03/02/17 16:00 03/02/17 16:00 03/02/17 16:00 Intake and Output: 03/02/17 03/02/17 06:59 18:59 Intake Total 1800 1780 Balance 1800 1780 - Medications Medications: Current Medications Heparin Sodium (Porcine) (Heparin) 5,000 units SC Q12 [facility] Last Admin: 03/02/17 10:38 Dose: 5,000 units Hydromorphone HCl (Dilaudid) 0.5 mg IVP Q4H PRN PRN Reason: Pain, moderate (4-7) Last Admin: 03/02/17 16:02 Dose: 0.5 mg Potassium Chloride 20 meq/ (Dextrose/Sodium Chloride) 1,010 mls @ 200 mls/hr IV .Q5H3M [facility] Last Admin: 03/02/17 16:06 Dose: 200 mls/hr Ceftriaxone Sodium (Rocephin Iv 1 Gm Duplex) 50 mls @ 100 mls/hr IVPB Q12 [facility] Last Admin: 03/02/17 10:37 Dose: 100 mls/hr Ondansetron HCl (Zofran Inj) 4 mg IVP Q6H PRN PRN Reason: Nausea/Vomiting Pantoprazole Sodium (Protonix Inj) 40 mg IVP DAILY [facility] Last Admin: 03/02/17 10:38 Dose: 40 mg - Labs Labs: 03/02/17 07:11 03/02/17 07:11 PT 14.2 SECONDS (9.7-12.2) H 03/01/17 08:32 INR 1.3 03/01/17 08:32 APTT 38 SECONDS (21-34) H 03/01/17 08:32 Attending/Attestation - Attestation I have personally seen and examined this patient.: Yes I have fully participated in the care of the patient.: Yes I have reviewed all pertinent clinical information, including history, physical exam and plan: Yes Notes (Text): 03/02/17 17:56 Medical attending: Patient was seen and examined by me, agree with the above note by the resident. GI has ordered MRCP done for further assessment of the pancreas. The patient is currently receiving IVF as well as pain medication. He reports pain seems more controlled today. Currently on IV abx, his urine was postive as well and there maybe a fistula - so at some point may need a colonscopy. He denied symptoms Clif Santiago 03/02/17 18:13
[2017-03-03] MEDS: HYDROmorphone 0.5 mg/0.5 ml ISec IVP PRN ×2 (01:31→08:48)
[2017-03-03] MEDS: Potassium Chloride 20 MEQ in Dextrose 5%/0.9% NS 1,000 ML IV SCH ×2 (03:20→08:42)
[2017-03-03 07:52] LABS: EOS # 0.2 K/uL (0.0-0.7); EOS % 4.2 % (0.0-4.0); HEMATOCRIT 41.3 % (35.0-51.0); LYMPH % 24.9 % (20.0-40.0); MEAN CELL VOLUME 85.4 fL (80.0-94.0); MEAN CORPUSCULAR HEMOGLOBIN 27.8 pg (27.0-31.0); MEAN CORPUSCULAR HGB CONC 32.6 g/dL (33.0-37.0); MEAN PLATELET VOLUME 9.1 fL (7.2-11.7); MONO # 0.5 K/uL (0.0-0.8); MONO % 11.7 % (0.0-10.0); NRBC % 0.2 % (0.0-2.0); RED CELL DISTRIBUTION WIDTH 16.9 % (11.5-14.5)
[2017-03-03 08:07] LABS: CHLORIDE 96 mmol/L (98-107); POTASSIUM 4.1 mmol/L (3.6-5.2); SODIUM 136 mmol/L (132-148)
[2017-03-03 08:09] LABS: ALB/GLOB RATIO 1.1 (1.0-2.1); ALKALINE PHOSPHATASE 50 U/L (38-126); ALT/SGPT 49 U/L (21-72); AST/SGOT 53 U/L (17-59); BILIRUBIN,TOTAL 0.6 mg/dL (0.2-1.3); BLOOD UREA NITROGEN 3 mg/dL (9-20); CARBON DIOXIDE 28 mmol/L (22-30); GFR AFRICAN-AMERICAN > 60; TOTAL PROTEIN 6.3 g/dL (6.3-8.3)
[2017-03-03 08:10] LABS: CALCIUM 8.5 mg/dl (8.6-10.4); GLUCOSE,RANDOM 127 mg/dL (75-110); MAGNESIUM 1.7 mg/dL (1.6-2.3); PHOSPHOROUS 3.5 mg/dL (2.5-4.5)
[2017-03-03 08:41] VITALS: BP 145/88; PULSE 78; TEMP 98.4; O2SAT 98
[2017-03-03] MEDS ORDERED: Potassium Chloride 20 MEQ in Dextrose 5%/0.9% NS 1,000 ML IV SCH (09:26)
[2017-03-03] MEDS: cefTRIAXone IV 1 gm in Dextros 50 ML IVPB SCH (10:41)
--- NOTE | 2017-03-03 10:41 | CP.PCM.PN ---
<Syed Encinas - Last Filed: 03/03/17 12:12> Subjective - Date & Time of Evaluation Date of Evaluation: 03/03/17 Time of Evaluation: 10:20 - Subjective Subjective: PGY4 GI Fellow Progress Note Patient seen and examined bedside this morning. The patient admits to some mild epigastric abdominal pain still radiating to back. Denies any nausea, vomiting. Had BM last night. Tolerated diet with only minor discomfort last night, no issues today. Overall, improved. 12 system ROS performed Objective - Vital Signs/Intake and Output Vital Signs (last 24 hours): Temp Pulse Resp BP Pulse Ox 98.4 F 78 20 145/88 98 03/03/17 08:41 03/03/17 08:41 03/03/17 08:41 03/03/17 08:41 03/03/17 08:41 Intake and Output: 03/03/17 03/03/17 06:59 18:59 Intake Total 4020 Balance 4020 - Medications Medications: Current Medications Diphenhydramine HCl (Benadryl) 25 mg PO HS [facility] Heparin Sodium (Porcine) (Heparin) 5,000 units SC Q12 [facility] Last Admin: 03/03/17 10:23 Dose: 5,000 units Hydromorphone HCl (Dilaudid) 0.5 mg IVP Q4H PRN PRN Reason: Pain, moderate (4-7) Last Admin: 03/03/17 08:48 Dose: 0.5 mg Ceftriaxone Sodium (Rocephin Iv 1 Gm Duplex) 50 mls @ 100 mls/hr IVPB Q12 [facility] Last Admin: 03/02/17 21:20 Dose: 100 mls/hr Potassium Chloride 20 meq/ (Dextrose/Sodium Chloride) 1,010 mls @ 100 mls/hr IV .Q10H6M [facility] Last Admin: 03/03/17 10:28 Dose: Not Given Ketorolac Tromethamine (Toradol) 30 mg IVP Q6 PRN PRN Reason: pain, mod Last Admin: 03/03/17 10:32 Dose: 30 mg Ondansetron HCl (Zofran Inj) 4 mg IVP Q6H PRN PRN Reason: Nausea/Vomiting Pantoprazole Sodium (Protonix Inj) 40 mg IVP DAILY [facility] Last Admin: 03/03/17 10:24 Dose: 40 mg - Labs Labs: 05/07/17 07:44 03/03/17 07:44 PT 14.2 SECONDS (9.7-12.2) H 03/01/17 08:32 INR 1.3 03/01/17 08:32 APTT 38 SECONDS (21-34) H 03/01/17 08:32 - Constitutional Appears: Non-toxic, No Acute Distress - Eye Exam Eye Exam: EOMI, PERRL - ENT Exam ENT Exam: Mucous Membranes Moist - Respiratory Exam Respiratory Exam: Clear to Ausculation Bilateral. absent: Rales, Rhonchi, Wheezes - Cardiovascular Exam Cardiovascular Exam: RRR, +S1, +S2 - GI/Abdominal Exam GI & Abdominal Exam: Soft, Hypoactive Bowel Sounds. absent: Distended, Firm, Guarding, Rigid, Tenderness, Organomegaly - Extremities Exam Extremities Exam: Normal Inspection. absent: Pedal Edema - Neurological Exam Neurological Exam: Alert, Awake, Oriented x3 - Psychiatric Exam Psychiatric exam: Normal Affect, Normal Mood - Skin Skin Exam: Dry, Warm Assessment and Plan - Assessment and Plan (Free Text) Assessment: Patient is a 51yo male with PMHx significant for chronic pancreatitis or undetermined etiology, complicated diverticulitis s/p partial colectomy w colostomy and eventual reversal/reanastamosis, tobacco abuse who presented to the ED with epigastric pain. -Acute on chronic pancreatitis -Urinary tract infection -H/O complicated diverticulitis s/p resection/colostomy/reversal -Tobacco abuse Plan: -Pain improved and tolerating diet -MRCP ordered, wont be done until tomorrow, can be done outpatient -Tolerating diet without issue -Awaiting IgG4, R/O autoimmune pancreatitis -OK to D/C from GI standpoint with outpatient follow up at the [facility] <Anthony Flores MD - Last Filed: 03/03/17 16:11> Objective - Vital Signs/Intake and Output Vital Signs (last 24 hours): Temp Pulse Resp BP Pulse Ox 98.4 F 78 20 145/88 98 03/03/17 08:41 03/03/17 08:41 03/03/17 08:41 03/03/17 08:41 03/03/17 08:41 Intake and Output: 03/03/17 03/03/17 06:59 18:59 Intake Total 4020 1200 Balance 4020 1200 - Labs Labs: 03/03/17 07:44 03/03/17 07:44 PT 14.2 SECONDS (9.7-12.2) H 03/01/17 08:32 INR 1.3 03/01/17 08:32 APTT 38 SECONDS (21-34) H 03/01/17 08:32 Attending/Attestation - Attestation I have personally seen and examined this patient.: Yes I have fully participated in the care of the patient.: Yes I have reviewed all pertinent clinical information, including history, physical exam and plan: Yes Notes (Text): 03/03/17 16:03 Patient seen at bedside with GI fellow. This is a 51 yo male with PMHx significant for chronic pancreatitis, complicated diverticulitis s/p partial colectomy w colostomy and eventual reversal/reanastamosis, tobacco abuse who presented to the ED with acute and chronic pancreatitis now resolved. Tolerating solid diet with resolved pain. Follow IgG4. May be discharged to follow with Dr Lzeama in [facility]
--- NOTE | 2017-03-03 13:38 | CP.PCM.DIS ---
<Cassia Grewal H - Last Filed: 03/03/17 13:33> Provider - Provider Date of Admission: 02/28/17 23:16 Attending physician: Yann Blackmon MD Primary care physician: Referred to [facility] Consults: TERRI Flores Time Spent in preparation of Discharge (in minutes): 40 Hospital Course - Lab Results Lab Results: Micro Results 03/01/17 21:00 Urine Urine Culture - Final No Growth (<1,000 CFU/ML) Most Recent Lab Values WBC 4.0 K/uL (4.8-10.8) L 03/03/17 07:44 RBC 4.83 Mil/uL (4.40-5.90) 03/03/17 07:44 Hgb 13.5 g/dL (12.0-18.0) 03/03/17 07:44 Hct 41.3 % (35.0-51.0) 03/03/17 07:44 MCV 85.4 fL (80.0-94.0) 03/03/17 07:44 MCH 27.8 pg (27.0-31.0) 03/03/17 07:44 MCHC 32.6 g/dL (33.0-37.0) L 03/03/17 07:44 RDW 16.9 % (11.5-14.5) H 03/03/17 07:44 Plt Count 149 K/uL (130-400) 03/03/17 07:44 MPV 9.1 fL (7.2-11.7) 03/03/17 07:44 Neut % (Auto) 58.2 % (50.0-75.0) 03/03/17 07:44 Lymph % (Auto) 24.9 % (20.0-40.0) 03/03/17 07:44 [place] % (Auto) 11.7 % (0.0-10.0) H 03/03/17 07:44 Eos % (Auto) 4.2 % (0.0-4.0) H 03/03/17 07:44 Baso % (Auto) 1.0 % (0.0-2.0) 03/03/17 07:44 Neut # 2.3 K/uL (1.8-7.0) 03/03/17 07:44 Lymph # 1.0 K/uL (1.0-4.3) 03/03/17 07:44 [place] # 0.5 K/uL (0.0-0.8) 03/03/17 07:44 Eos # 0.2 K/uL (0.0-0.7) 03/03/17 07:44 Baso # 0.0 K/uL (0.0-0.2) 03/03/17 07:44 Neutrophils % (Manual) 85 % (50-75) H 02/28/17 19:21 Lymphocytes % (Manual) 8 % (20-40) L 02/28/17 19:21 Monocytes % (Manual) 7 % (0-10) 02/28/17 19:21 Hypersegmented Polys Present 02/28/17 19:21 Smudge Cells Present 02/28/17 19:21 Platelet Estimate Normal (NORMAL) 02/28/17 19:21 Large Platelets Present 02/28/17 19:21 Polychromasia Slight 02/28/17 19:21 Poikilocytosis (manual Slight 02/28/17 19:21 Anisocytosis (manual) Slight 02/28/17 19:21 PT 14.2 SECONDS (9.7-12.2) H 03/01/17 08:32 INR 1.3 03/01/17 08:32 APTT 38 SECONDS (21-34) H 03/01/17 08:32 Sodium 136 mmol/L (132-148) 03/03/17 07:44 Potassium 4.1 mmol/L (3.6-5.2) 03/03/17 07:44 Chloride 96 mmol/L (98-107) L 03/03/17 07:44 Carbon Dioxide 28 mmol/L (22-30) 03/03/17 07:44 Anion Gap 16 (10-20) 03/03/17 07:44 BUN 3 mg/dL (9-20) L 03/03/17 07:44 Creatinine 0.6 MG/DL (0.8-1.5) L 03/03/17 07:44 Est GFR ( Amer) > 60 03/03/17 07:44 Est GFR (Non-Af Amer) > 60 03/03/17 07:44 Random Glucose 127 mg/dL (75-110) H 03/03/17 07:44 Calcium 8.5 mg/dl (8.6-10.4) L 03/03/17 07:44 Phosphorus 3.5 mg/dL (2.5-4.5) 03/03/17 07:44 Magnesium 1.7 mg/dL (1.6-2.3) 03/03/17 07:44 Total Bilirubin 0.6 mg/dL (0.2-1.3) 03/03/17 07:44 Direct Bilirubin 0.5 mg/dL (0.0-0.4) H 03/01/17 13:45 GGT 41 U/L (8-78) 03/01/17 16:20 AST 53 U/L (17-59) 03/03/17 07:44 ALT 49 U/L (21-72) 03/03/17 07:44 Alkaline Phosphatase 50 U/L (38-126) 03/03/17 07:44 Total Protein 6.3 g/dL (6.3-8.3) 03/03/17 07:44 Albumin 3.3 g/dL (3.5-5.0) L 03/03/17 07:44 Globulin 2.9 gm/dL (2.2-3.9) 03/03/17 07:44 Albumin/Globulin Ratio 1.1 (1.0-2.1) 03/03/17 07:44 Amylase 92 U/L (30-110) 03/02/17 07:11 Lipase 147 U/L (23-300) 03/02/17 07:11 Urine Color Yellow (YELLOW) 02/28/17 21:08 Urine Clarity Hazy (Clear) 02/28/17 21:08 Urine pH 5.0 (5.0-8.0) 02/28/17 21:08 Ur Specific [place] 1.027 (1.003-1.030) 02/28/17 21:08 Urine Protein 2+ mg/dL (NEGATIVE) H 02/28/17 21:08 Urine Glucose (UA) 1+ mg/dL (Normal) H 02/28/17 21:08 Urine Ketones 1+ mg/dL (NEGATIVE) H 02/28/17 21:08 Urine Blood Trace (NEGATIVE) H 02/28/17 21:08 Urine Nitrate Negative (NEGATIVE) 02/28/17 21:08 Urine Bilirubin 1+ (NEGATIVE) H 02/28/17 21:08 Urine Urobilinogen 2.0 mg/dL (0.2-1.0) 02/28/17 21:08 Ur Leukocyte Esterase 2+ Saranya/uL (Negative) H 02/28/17 21:08 Urine WBC (Auto) 61 /hpf (0-5) H 02/28/17 21:08 Urine RBC (Auto) 9 /hpf (0-3) H 02/28/17 21:08 Urine WBC Clumps (Auto) Few /hpf (NONE) H 02/28/17 21:08 Ur Squamous Epith Cells 3 /hpf (0-5) 02/28/17 21:08 Urine Bacteria Mod (<OCC) H 02/28/17 21:08 Hyaline Casts >20 /lpf (0-2) H 02/28/17 21:08 Urine Opiates Screen Negative (NEGATIVE) 02/28/17 21:08 Urine Methadone Screen Negative (NEGATIVE) 02/28/17 21:08 Ur Barbiturates Screen Negative (NEGATIVE) 02/28/17 21:08 Ur Phencyclidine Scrn Negative (NEGATIVE) 02/28/17 21:08 Ur Amphetamines Screen Negative (NEGATIVE) 02/28/17 21:08 U Benzodiazepines Scrn Negative (NEGATIVE) 02/28/17 21:08 U Oth Cocaine Metabols Negative (NEGATIVE) 02/28/17 21:08 U Cannabinoids Screen Negative (NEGATIVE) 02/28/17 21:08 Alcohol, Quantitative < 10 mg/dl (0-10) 02/28/17 19:21 Hepatitis A IgM Ab Negative (NEGATIVE) 03/01/17 13:45 Hep Bs Antigen Negative (NEGATIVE) 03/01/17 13:45 Hep B Core IgM Ab Negative (NEGATIVE) 03/01/17 13:45 Hepatitis C Antibody Negative (NEGATIVE) 03/01/17 13:45 - Hospital Course Hospital Course: On admission: CC: Abdominal pain x 4days HPI: 51 year old male with a PMHx of Acute on chronic pancreatitis, GERD, perforated diverticulitis, cholelithiasis with dilate CBD s/p cholecystectomy - presents c/o burning epigastric pain for 4 days. Patient states he developed abdominal pain Kod[place] morning, similar to prior episodes of pancreatitis. He attributes this episode to indulging in fatty foods over the weekend. He did not eat or drink in attempt to self treat himself for the pancreatitis. His pain continued to worsen, described as sharp, constant, and radiating to the back. Pain is rated a 9/10. He has not had a bowel movement in 5 days, attributed to not eating. Admits to f/c, diaphoresis, dizziness, abdominal pain radiating to back, nausea with dry heaves, and recent travel to [place]. He had similar symptoms that caused him to present to the ED on 04/13/14, 05/03/15, , and 05/27/16. He attributes his recurrent pancreatitis to his cholecystectomy 3 years ago. Denies change in vision, chest pain, SOB, vomiting , d/c, leg pain, recent sickness, trauma, or any additional complaints. PMHx: Acute on chronic pancreatitis, GERD, perforated diverticulitis, cholelithiasis with dilate CBD s/p cholecystectomy PSHx: partial colectomy with colostomy reversal, EGD, Colonoscopy (many years ago -> "normal") Meds: Prilosec 20mg PO qd. Allergies: Shellfish (hives) FamHx: unknown, adopted SocHx: Admits to ETOH cessation x 3 years. Admits he used to karen-drink on weekends with friends. Tobacco 3 cig/d x4yrs (previously 1/2ppd x25yrs). Denies drug use, lives in [facility], Unemployed former show worker. PMD: none Hospital Course: Patient treated for acute on chronic pancreatitis. Lipase on admission was 1655. Abd/Pelvis CT with IV contrast showed acute on chronic pancreatitis ( please see full report). Abdominal US was unremarkable (please see full report) . LFTs were within noemal limits. Patient given pain medication, zofran, protonix and 200cc/hr fluids. GI consulted - /. Patient was NPO until 03/02/17 when he was slowly advanced to low fiber/low fat diet for dinner. Patient also had anasymptomatic UTI. Urine culture on 02/28/17 showed gram negative rods. Urince culture 03/01/17 was negative. Patient was treated with IV Rocephin until 03/01 urine culture resulted on 03/03. Patient discharged home with recommendation of taking continuing home prilosec. Patient told to follow up in [facility] within one week and obtain referral for GI. Patient will need MRCP and possible colonoscopy outpatient. F/U IgG4 outpatient to rule out autoimmune pancreatitis. Imaging: Abd US: Unremarkable abdominal sonogram. (see full report) CT abd/pelvis IV Contrast: acute on chronic pancreatitis (see full report) Discharge Exam - Head Exam Head Exam: NORMAL INSPECTION - Eye Exam Eye Exam: EOMI - ENT Exam ENT Exam: Mucous Membranes Moist - Respiratory Exam Respiratory Exam: Chest Wall Tenderness (lower left rib tenderness), Clear to PA & Lateral, NORMAL BREATHING PATTERN, UNREMARKABLE. absent: Rales, Rhonchi, Wheezes - Cardiovascular Exam Cardiovascular Exam: REGULAR RHYTHM, +S1, +S2. absent: Gallop, Rubs, Systolic Murmur - GI/Abdominal Exam GI & Abdominal Exam: Normal Bowel Sounds, Soft. absent: Firm, Guarding, Tenderness - Extremities Exam Extremities exam: normal capillary refill Additional comments: no pedal edema - Neurological Exam Neurological exam: Alert, Oriented x3 - Psychiatric Exam Psychiatric exam: Normal Affect, Normal Mood - Skin Skin Exam: Normal Color, Warm Discharge Plan - Follow Up Plan Condition: STABLE Disposition: HOME/ ROUTINE Instructions: Pancreatitis (DC), Urinary Tract Infection in Men (DC) Additional Instructions: Patient to be discharged home per Dr. Clif Santiago. Patient should resume prilosec at home. Patient can take Tylenol over the counter at home for rib pain. Patient should make an appointment and follow up with [facility]. Patient should obtain a GI referral from the [facility] to monitor chronic pancreatitis. Patient should return to ED immediately if symptoms return or worsen. Referrals: [facility] [Outside] Sandra CLARKE,MD Anthony [Medical Doctor] - <Clif Santiago - Last Filed: 03/03/17 16:38> Provider - Provider Date of Admission: 02/28/17 23:16 Attending physician: Yann Blackmon MD Hospital Course - Lab Results Lab Results: Micro Results 03/01/17 21:00 Urine Urine Culture - Final No Growth (<1,000 CFU/ML) Most Recent Lab Values WBC 4.0 K/uL (4.8-10.8) L 03/03/17 07:44 RBC 4.83 Mil/uL (4.40-5.90) 03/03/17 07:44 Hgb 13.5 g/dL (12.0-18.0) 03/03/17 07:44 Hct 41.3 % (35.0-51.0) 03/03/17 07:44 MCV 85.4 fL (80.0-94.0) 03/03/17 07:44 MCH 27.8 pg (27.0-31.0) 03/03/17 07:44 MCHC 32.6 g/dL (33.0-37.0) L 03/03/17 07:44 RDW 16.9 % (11.5-14.5) H 03/03/17 07:44 Plt Count 149 K/uL (130-400) 03/03/17 07:44 MPV 9.1 fL (7.2-11.7) 03/03/17 07:44 Neut % (Auto) 58.2 % (50.0-75.0) 03/03/17 07:44 Lymph % (Auto) 24.9 % (20.0-40.0) 03/03/17 07:44 [place] % (Auto) 11.7 % (0.0-10.0) H 03/03/17 07:44 Eos % (Auto) 4.2 % (0.0-4.0) H 03/03/17 07:44 Baso % (Auto) 1.0 % (0.0-2.0) 03/03/17 07:44 Neut # 2.3 K/uL (1.8-7.0) 03/03/17 07:44 Lymph # 1.0 K/uL (1.0-4.3) 03/03/17 07:44 [place] # 0.5 K/uL (0.0-0.8) 03/03/17 07:44 Eos # 0.2 K/uL (0.0-0.7) 03/03/17 07:44 Baso # 0.0 K/uL (0.0-0.2) 03/03/17 07:44 Neutrophils % (Manual) 85 % (50-75) H 02/28/17 19:21 Lymphocytes % (Manual) 8 % (20-40) L 02/28/17 19:21 Monocytes % (Manual) 7 % (0-10) 02/28/17 19:21 Hypersegmented Polys Present 02/28/17 19:21 Smudge Cells Present 02/28/17 19:21 Platelet Estimate Normal (NORMAL) 02/28/17 19:21 Large Platelets Present 02/28/17 19:21 Polychromasia Slight 02/28/17 19:21 Poikilocytosis (manual Slight 02/28/17 19:21 Anisocytosis (manual) Slight 02/28/17 19:21 PT 14.2 SECONDS (9.7-12.2) H 03/01/17 08:32 INR 1.3 03/01/17 08:32 APTT 38 SECONDS (21-34) H 03/01/17 08:32 Sodium 136 mmol/L (132-148) 03/03/17 07:44 Potassium 4.1 mmol/L (3.6-5.2) 03/03/17 07:44 Chloride 96 mmol/L (98-107) L 03/03/17 07:44 Carbon Dioxide 28 mmol/L (22-30) 03/03/17 07:44 Anion Gap 16 (10-20) 03/03/17 07:44 BUN 3 mg/dL (9-20) L 03/03/17 07:44 Creatinine 0.6 MG/DL (0.8-1.5) L 03/03/17 07:44 Est GFR ( Amer) > 60 03/03/17 07:44 Est GFR (Non-Af Amer) > 60 03/03/17 07:44 Random Glucose 127 mg/dL (75-110) H 03/03/17 07:44 Calcium 8.5 mg/dl (8.6-10.4) L 03/03/17 07:44 Phosphorus 3.5 mg/dL (2.5-4.5) 03/03/17 07:44 Magnesium 1.7 mg/dL (1.6-2.3) 03/03/17 07:44 Total Bilirubin 0.6 mg/dL (0.2-1.3) 03/03/17 07:44 Direct Bilirubin 0.5 mg/dL (0.0-0.4) H 03/01/17 13:45 GGT 41 U/L (8-78) 03/01/17 16:20 AST 53 U/L (17-59) 03/03/17 07:44 ALT 49 U/L (21-72) 03/03/17 07:44 Alkaline Phosphatase 50 U/L (38-126) 03/03/17 07:44 Total Protein 6.3 g/dL (6.3-8.3) 03/03/17 07:44 Albumin 3.3 g/dL (3.5-5.0) L 03/03/17 07:44 Globulin 2.9 gm/dL (2.2-3.9) 03/03/17 07:44 Albumin/Globulin Ratio 1.1 (1.0-2.1) 03/03/17 07:44 Amylase 92 U/L (30-110) 03/02/17 07:11 Lipase 147 U/L (23-300) 03/02/17 07:11 Urine Color Yellow (YELLOW) 02/28/17 21:08 Urine Clarity Hazy (Clear) 02/28/17 21:08 Urine pH 5.0 (5.0-8.0) 02/28/17 21:08 Ur Specific [place] 1.027 (1.003-1.030) 02/28/17 21:08 Urine Protein 2+ mg/dL (NEGATIVE) H 02/28/17 21:08 Urine Glucose (UA) 1+ mg/dL (Normal) H 02/28/17 21:08 Urine Ketones 1+ mg/dL (NEGATIVE) H 02/28/17 21:08 Urine Blood Trace (NEGATIVE) H 02/28/17 21:08 Urine Nitrate Negative (NEGATIVE) 02/28/17 21:08 Urine Bilirubin 1+ (NEGATIVE) H 02/28/17 21:08 Urine Urobilinogen 2.0 mg/dL (0.2-1.0) 02/28/17 21:08 Ur Leukocyte Esterase 2+ Saranya/uL (Negative) H 02/28/17 21:08 Urine WBC (Auto) 61 /hpf (0-5) H 02/28/17 21:08 Urine RBC (Auto) 9 /hpf (0-3) H 02/28/17 21:08 Urine WBC Clumps (Auto) Few /hpf (NONE) H 02/28/17 21:08 Ur Squamous Epith Cells 3 /hpf (0-5) 02/28/17 21:08 Urine Bacteria Mod (<OCC) H 02/28/17 21:08 Hyaline Casts >20 /lpf (0-2) H 02/28/17 21:08 Urine Opiates Screen Negative (NEGATIVE) 02/28/17 21:08 Urine Methadone Screen Negative (NEGATIVE) 02/28/17 21:08 Ur Barbiturates Screen Negative (NEGATIVE) 02/28/17 21:08 Ur Phencyclidine Scrn Negative (NEGATIVE) 02/28/17 21:08 Ur Amphetamines Screen Negative (NEGATIVE) 02/28/17 21:08 U Benzodiazepines Scrn Negative (NEGATIVE) 02/28/17 21:08 U Oth Cocaine Metabols Negative (NEGATIVE) 02/28/17 21:08 U Cannabinoids Screen Negative (NEGATIVE) 02/28/17 21:08 Alcohol, Quantitative < 10 mg/dl (0-10) 02/28/17 19:21 Hepatitis A IgM Ab Negative (NEGATIVE) 03/01/17 13:45 Hep Bs Antigen Negative (NEGATIVE) 03/01/17 13:45 Hep B Core IgM Ab Negative (NEGATIVE) 03/01/17 13:45 Hepatitis C Antibody Negative (NEGATIVE) 03/01/17 13:45 Attending/Attestation - Attestation I have personally seen and examined this patient.: Yes I have fully participated in the care of the patient.: Yes I have reviewed all pertinent clinical information, including history, physical exam and plan: Yes Notes (Text): 03/03/17 16:30 Medical attending: Patient was seen and examined by me. Agree with the above note by the resident. Patient was tolerating regular diet since last night for dinner and then also for breakfast and lunch. His pain was controlled and his bathroom ok as well. The patient's lab work was also stable as well. The patient intially was planned for MRCP on Saturday however he looked really well and so with discussion with GI, the patient will be discharged to home later today. I explained to the patient that he needs to follow up in the [facility] for eventual refferal to GI clinic. Patient says he understands and will follow up. thank you Clif Santiago
== END 2017-03-03 15:01 | disposition home or self-care (01) | DRG 204 ==
LOC: C.ER 17:55 → C.3T 23:16
PROVIDERS: ADMIT Internal Medicine; ATTEND Internal Medicine
DX: K85.20 Alcohol induced acute pancreatitis without necrosis or infection (principal); N39.0 Urinary tract infection, site not specified; E86.0 Dehydration; K86.0 Alcohol-induced chronic pancreatitis; F10.21 Alcohol dependence, in remission; K21.9 Gastro-esophageal reflux disease without esophagitis; F17.210 Nicotine dependence, cigarettes, uncomplicated; Z87.19 Personal history of other diseases of the digestive system; Z90.49 Acquired absence of other specified parts of digestive tract; Z91.013 Allergy to seafood

== ENCOUNTER 2017-04-20 02:51 | Inpatient (IN) | payer MEDICAID, OTHER ==
[2017-04-20 02:52] VITALS: BMI 25.1
[2017-04-20] MEDS ORDERED: Sodium Chloride 0.9% 1,000 ML IV ONE ×2 (03:07→05:23)
[2017-04-20] MEDS ORDERED: Sodium Chloride 0.9% 1,000 ML ONE (03:19)
[2017-04-20 03:27] LABS: CHLORIDE 78 mmol/L (98-107); POTASSIUM 3.1 mmol/L (3.6-5.2); SODIUM 128 mmol/L (132-148)
[2017-04-20 03:29] LABS: CARBON DIOXIDE 26 mmol/L (22-30); GFR AFRICAN-AMERICAN > 60
--- NOTE | 2017-04-20 03:29 | C.PDOC ---
History Of Present Illness 52 year old male presents to the ED with complaints of severe abdominal pain mostly in the upper quadrants with associated nausea and vomiting for two days. Patient notes history of pancreatitis and denies any fever or dysuria. Chief Complaint (Nursing): Abdominal Pain History Per: Patient History/Exam Limitations: no limitations Onset/Duration Of Symptoms: Days (2 days ) Current Symptoms Are (Timing): Still Present Location Of Pain/Discomfort: RUQ, Epigastric, LUQ Radiation Of Pain To:: None Quality Of Discomfort: "Pain" Associated Symptoms: Nausea, Vomiting. denies: Fever, Chills Recent travel outside of the [place]: No Past Medical History Reviewed: Historical Data, Nursing Documentation, Vital Signs Vital Signs: Last Vital Signs Temp 98.3 F 04/20/17 02:57 Pulse 88 04/20/17 02:57 Resp 20 04/20/17 02:57 BP 126/77 04/20/17 02:57 Pulse Ox 96 04/20/17 04:45 - Medical History PMH: Anxiety, Arthritis (right hand), Diverticulitis, Gall Bladder Disease, HTN (stable lately, no medication), Pancreatitis Surgical History: Cholecystectomy - [facility] Procedures VACCINATION NEC (04/30/15) Family History: States: Unknown Family Hx - Social History Hx Tobacco Use: Yes Hx Alcohol Use: Yes (stopped 3 years ago) Hx Substance Use: No - Immunization History Hx Tetanus Toxoid Vaccination: Yes Hx Influenza Vaccination: Yes Hx Pneumococcal Vaccination: Yes Review Of Systems Constitutional: Negative for: Fever, Chills, Sweats Cardiovascular: Negative for: Chest Pain Respiratory: Negative for: Shortness of Breath Gastrointestinal: Positive for: Nausea, Vomiting, Abdominal Pain. Negative for : Diarrhea Genitourinary: Negative for: Dysuria Physical Exam - Physical Exam Appears: Non-toxic, No Acute Distress Skin: Warm, Dry Oral Mucosa: Moist Neck: No Midline Cervical Tenderness, No Paracervical Tenderness, Supple Chest: Symmetrical, No Deformity Cardiovascular: Rhythm Regular Respiratory: No Rales, No Rhonchi, No Stridor, No Wheezing Gastrointestinal/Abdominal: Soft, Tenderness (tendenress to the upper colon area ), No Distention, No Guarding, Rebound Extremity: Normal ROM, No Tenderness ED Course And Treatment - Laboratory Results Result Diagrams: 04/20/17 03:17 04/20/17 03:17 O2 Sat by Pulse Oximetry: 96 - CT Scan/US CTAbdomen and Pelvis Without Intravenous Contrast Other Rad Studies (CT/US): Read By Radiologist, Radiology Report Reviewed CT/US Interpretation: FINDINGS: Limitations: Lack of intravenous contrast. Lower thorax: Mild mural thickening vs underdistention of distal esophagus. ABDOMEN: Liver: Fatty infiltration. Gallbladder and bile ducts: Cholecystectomy. Dilated common bile duct, grossly stable. Pancreas: Multiple calcifications within pancreas. Mild stranding about pancreas. No discrete. peripancreatic collection. Spleen: No splenomegaly. Adrenals: No mass. Kidneys and ureters: Few probable LEFT renal cysts. No renal calculi. No hydronephrosis. Stomach and bowel: Apparent mild mural thickening of several duodenal/jejunal loops. Few. scattered diverticula within colon. No obstruction. Appendix: No findings to suggest acute appendicitis. PELVIS: Bladder: Incomplete distention, limiting evaluation. No stones. Reproductive: Unremarkable as visualized. ABDOMEN and PELVIS: Intraperitoneal space: No significant fluid collection. No free air. Bones/joints: No acute fracture. Soft tissues: Small umbilical hernia containing fat. Small inguinal hernias containing fat. Vasculature: Unremarkable. No aneurysm. Lymph nodes: No pathologically enlarged lymph nodes. IMPRESSION: 1. Acute on chronic pancreatitis. 2. Possible mild enteritis. Clinical correlation is needed. 3. Incidental/non-acute findings are described above. Disposition Discussed With DrGisell: Robinson Childs Doctor Will See Patient In The: Hospital Counseled Patient/Family Regarding: Diagnosis - Disposition Disposition: HOSPITALIZED Disposition Time: 04:43 Condition: STABLE - Clinical Impression Clinical Impression: Abdominal pain, Acute pancreatitis, Hyponatremia, Renal insufficiency syndrome - Scribe Statement The provider has reviewed the documentation as recorded by the Ibeth Nielson All medical record entries made by the Ibeth were at my direction and personally dictated by me. I have reviewed the chart and agree that the record accurately reflects my personal performance of the history, physical exam, medical decision making, and the department course for this patient. I have also personally directed, reviewed, and agree with the discharge instructions and disposition.
[2017-04-20 03:30] LABS: ALB/GLOB RATIO 1.2 (1.0-2.1); ALKALINE PHOSPHATASE 91 U/L (38-126); ALT/SGPT 133 U/L (21-72); AST/SGOT 166 U/L (17-59); BLOOD UREA NITROGEN 24 mg/dL (9-20); CALCIUM 11.3 mg/dl (8.6-10.4); GLUCOSE,RANDOM 152 mg/dL (75-110); TOTAL PROTEIN 8.9 g/dL (6.3-8.3)
--- NOTE | 2017-04-20 03:31 | C.PDOC ---
Chief Complaint (Nursing): Abdominal Pain Past Medical History Vital Signs: Last Vital Signs Temp 98.3 F 04/20/17 02:57 Pulse 88 04/20/17 02:57 Resp 20 04/20/17 02:57 BP 126/77 04/20/17 02:57 Pulse Ox 96 04/20/17 02:57 - Medical History PMH: Anxiety, Arthritis (right hand), Diverticulitis, Gall Bladder Disease, HTN (stable lately, no medication), Pancreatitis Denies: Chronic Kidney Disease Surgical History: Cholecystectomy - [facility] Procedures VACCINATION NEC (04/30/15) Family History: States: Unknown Family Hx - Social History Hx Tobacco Use: Yes Hx Alcohol Use: Yes (stopped 3 years ago) Hx Substance Use: No - Immunization History Hx Tetanus Toxoid Vaccination: Yes Hx Influenza Vaccination: Yes Hx Pneumococcal Vaccination: Yes ED Course And Treatment O2 Sat by Pulse Oximetry: 96
[2017-04-20 03:42] LABS: BASO % 0.2 % (0.0-2.0); EOS % 0.2 % (0.0-4.0); LYMPH # 1.3 K/uL (1.0-4.3); LYMPH % 10.7 % (20.0-40.0); MEAN CORPUSCULAR HEMOGLOBIN 26.5 pg (27.0-31.0); MEAN CORPUSCULAR HGB CONC 32.9 g/dL (33.0-37.0); MEAN PLATELET VOLUME 8.8 fL (7.2-11.7); MONO # 0.7 K/uL (0.0-0.8); MONO % 5.8 % (0.0-10.0); NRBC % 0.2 % (0.0-2.0); RED CELL DISTRIBUTION WIDTH 20.4 % (11.5-14.5)
[2017-04-20 03:43] LABS: WHITE BLOOD COUNT 12.3 K/uL (4.8-10.8)
[2017-04-20 03:44] LABS: MEAN CELL VOLUME 80.6 fL (80.0-94.0)
--- NOTE | 2017-04-20 05:08 | CP.PCM.HP ---
<Libertad Almonte - Last Filed: 04/20/17 05:27> History of Present Illness - History of Present Illness History of Present Illness: CC: "I have pancreatitis" 52 year old male the past medical history of pancreatitis and diverticulitis presents to the ED with pancreatitis. Patient states he started with nausea and vomiting on morning but thought it was the flu because his father had the flu. His symptoms became worse and he developed sharp abdominal pain that radiated to his back and was constant. Patient states it was an 11/10 and now after receiving the pain medications it is a 3/10. Patient states nothing makes the pain better or worse. Patient states he did not take anything for the pain. Patient states because of the pain he has not been able to eat or sleep. Patient states he has nausea, vomiting, headache, lightheadedness, dizzy, sweating, chills and palpitations. Patient states he has stopped drinking alcohol for the past 3 years but was admitting to the hospital for pancreatitis in early February of this year. Patient states he was not able to follow up with a primary care doctor or a upper caser because he was working in [facility]. Patient denies chest pain, shortness of breath , diarrhea or constipation. PMD: Does not have one Past Medical History: Pancreatitis, Diverticulitis Past Surgical History: Colostomy bag for one year, Colostomy bag reversal, cholecystectomy Medications: 20mg Omeprazole Allergies: Morphine- rash; Shellfish/Iodine- anaphylaxis Family History: Is adopted; Biological mother: pancreatitis, diverticulitis, breast cancer Social: Currently unemployed, Previously worked as a interior surface insulation worker, Lives alone in apartment in [place]; quit drinking alcohol 3 years ago but used to binge drink for many many years. Denies use of illicit drugs, Smoker for 30 years currently smokes 2 cigarettes per day. Present on Admission - Present on Admission Any Indicators Present on Admission: No Review of Systems - Constitutional Constitutional: Excessive Sweating, Headache. absent: Fever, Increased Appetite (decreased appetite since due to pain) - EENT Nose/Mouth/Throat: absent: Sore Throat - Cardiovascular Cardiovascular: Lightheadedness, Palpitations. absent: Chest Pain, Dyspnea - Respiratory Respiratory: absent: Cough - Gastrointestinal Gastrointestinal: Abdominal Pain, Nausea, Vomiting. absent: Constipation, Diarrhea - Genitourinary Genitourinary: absent: Dysuria - Musculoskeletal Musculoskeletal: Back Pain - Neurological Neurological: Dizziness Past Patient History - Infectious Disease Hx of Infectious Diseases: None - Past Medical History & Family History Past Medical History?: Yes - Past Social History Smoking Status: Current Some Days Smoker - CARDIAC Hx Hypertension: Yes (stable lately, no medication) - PULMONARY Hx Respiratory Disorders: No - NEUROLOGICAL Hx Neurological Disorder: No - HEENT Hx HEENT Problems: No - RENAL Hx Chronic Kidney Disease: No - ENDOCRINE/METABOLIC Hx Endocrine Disorders: No Hx Diabetes Mellitus Type 2: No - HEMATOLOGICAL/ONCOLOGICAL Hx Blood Disorders: No - INTEGUMENTARY Hx Dermatological Problems: No - MUSCULOSKELETAL/RHEUMATOLOGICAL Hx Arthritis: Yes (right hand) - GASTROINTESTINAL Hx Diverticulitis: Yes Hx Gall Bladder Disease: Yes Hx Pancreatitis: Yes - GENITOURINARY/GYNECOLOGICAL Hx Genitourinary Disorders: No - PSYCHIATRIC Hx Anxiety: Yes Hx Substance Use: No - SURGICAL HISTORY Hx Cholecystectomy: Yes - ANESTHESIA Hx Anesthesia: Yes Hx Anesthesia Reactions: No Hx Malignant Hyperthermia: No Meds Allergies/Adverse Reactions: Allergies Allergy/AdvReac Type Severity Reaction Status Date / Time iodine Allergy Verified 04/20/17 03:02 morphine Allergy Verified 04/20/17 03:02 shellfish derived Allergy Verified 04/20/17 03:02 Physical Exam - Constitutional Appears: No Acute Distress - Eye Exam Eye Exam: EOMI, PERRL - ENT Exam ENT Exam: Mucous Membranes Moist - Respiratory Exam Respiratory Exam: Clear to Auscultation Bilateral, NORMAL BREATHING PATTERN - Cardiovascular Exam Cardiovascular Exam: REGULAR RHYTHM, +S1, +S2 - GI/Abdominal Exam GI & Abdominal Exam: Normal Bowel Sounds, Soft, Tenderness (epigastric area) - Extremities Exam Extremities exam: Negative for: calf tenderness, pedal edema, tenderness - Back Exam Additional comments: tenderness noted T-8 to T10 - Neurological Exam Neurological exam: Alert, Oriented x3 Results - Vital Signs Recent Vital Signs: Last Vital Signs Temp 98.3 F 04/20/17 02:57 Pulse 88 04/20/17 02:57 Resp 20 04/20/17 02:57 BP 126/77 04/20/17 02:57 Pulse Ox 96 04/20/17 04:45 - Labs Result Diagrams: 04/20/17 03:17 04/20/17 03:17 Assessment & Plan - Assessment and Plan (Free Text) Assessment: 52 year old male the past medical history of pancreatitis and diverticulitis presents to the ED with pancreatitis. Plan: 1.) Pancreatitis * NPO * Dilaudid .5mg q4h PRN for pain * n/s fluids 1000 mls 150mls/hr IV * Consult Gastroenterology - Dr. Webster --> help appreciated 2.) Prophylaxis * SCD * Pepcid 20mg BID <Robinson Childs - Last Filed: 04/20/17 06:29> Results - Vital Signs Recent Vital Signs: Last Vital Signs Temp 98.3 F 04/20/17 02:57 Pulse 70 04/20/17 05:00 Resp 14 04/20/17 05:00 BP 120/70 04/20/17 05:00 Pulse Ox 96 04/20/17 05:16 - Labs Result Diagrams: 04/20/17 03:17 04/20/17 03:17 Labs: Laboratory Results - last 24 hr 04/20/17 05:31 Urine Color Roberta Urine Clarity Hazy Urine pH 5.0 Ur Specific [place] 1.024 Urine Protein 2+ H Urine Glucose (UA) Normal Urine Ketones 2+ H Urine Blood 1+ H Urine Nitrate Negative Urine Bilirubin Negative Urine Urobilinogen 2.0 Ur Leukocyte Esterase Trace Urine WBC (Auto) 44 H Urine RBC (Auto) 12 H Ur Squamous Epith Cells 1 Urine Bacteria Rare Hyaline Casts >20 H Assessment & Plan - Date & Time Date: 04/20/17 (I have seen and examined the patient. I agree with the findings and plan of care as documented by Dr. Almonte. Patient with acute pancreatitis. History of prior pancreatitis. Denies alcohol use in 3 years. Symptomatic treatment. NPO. IVF. GI consult. Monitor for acute changes.) Time: 06:28 Attending/Attestation - Attestation I have personally seen and examined this patient.: Yes I have fully participated in the care of the patient.: Yes I have reviewed all pertinent clinical information: Yes
[2017-04-20 05:42] LABS: RBC URINE 12 /hpf (0-3); URINE BACTERIA RARE (<OCC); URINE BILIRUBIN NEGATIVE (NEGATIVE); URINE BLOOD 1+ (NEGATIVE); URINE COLOR Amber (YELLOW); URINE GLUCOSE (UA) NORMAL (Normal); URINE HYALINE CAST >20 /lpf (0-2); URINE KETONE 2+ mg/dL (NEGATIVE); URINE LEUKOCYTE ESTERASE TRACE Leu/uL (Negative); URINE PROTEIN 2+ mg/dL (NEGATIVE); WBC URINE 44 /hpf (0-5)
[2017-04-20 06:49] VITALS: RESP 20
[2017-04-20] MEDS: HYDROmorphone 0.5 mg/0.5 ml ISec IVP PRN ×2 (07:59→14:22)
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
[2017-04-20] MEDS ORDERED: Lactated Ringer's 1,000 ML IV ONE (08:45)
[2017-04-20] MEDS ORDERED: HYDROmorphone 1 mg/ml ISec IVP STA ×2 (09:48→16:31)
--- NOTE | 2017-04-20 10:25 | CT ---
PROCEDURE: CT Abdomen and Pelvis without intravenous contrast HISTORY: severe upper abd pain COMPARISON: 02/28/2017 TECHNIQUE: Without contrast.. Contrast Dose: 0 Radiation dose: Total exam DLP = 358.54 mGy-cm. This CT exam was performed using one or more of the following dose reduction techniques: Automated exposure control, adjustment of the mA and/or kV according to patient size, and/or use of iterative reconstruction technique. FINDINGS: LOWER THORAX: Unremarkable. LIVER: Diffusely diminished attenuation consistent with fatty infiltration. Normal size. Smooth contour. No focal mass. No intrahepatic biliary ductal dilatation. GALLBLADDER AND BILE DUCTS: Status post cholecystectomy. Prominent dilatation of common bile duct, up to 18 mm without associated intrahepatic biliary dilatation. Likely related to prior cholecystectomy. No change from prior examination. PANCREAS: Peripancreatic inflammatory change consistent with acute pancreatitis. The extent of pancreatic inflammatory change is decreased compared to the prior examination. No evidence of pancreatic ductal dilatation. Diffuse punctate pancreatic calcifications consistent with chronic pancreatitis. No evidence of pancreatic pseudocyst. No pancreatic mass identified. SPLEEN: Unremarkable. ADRENALS: Unremarkable. No mass. KIDNEYS AND URETERS: Previous identified left renal cysts are poorly demonstrated due to the absence of intravenous contrast on current examination. There is a 12 mm mid left renal low-density mass, likely cortical cysts and consistent with prior examination. Additional low-density masses seen on prior examination are not demonstrated on the current examination. There is no other renal mass. There is no calculus or hydronephrosis. VASCULATURE: Unremarkable. No aortic aneurysm. BOWEL: There is circumferential mural thickening of the 2nd and 3rd duodenum and mild mural thickening of several loops of proximal jejunum. This enteritis is nonspecific but the duodenal mural thickening is most likely related to the adjacent peripancreatic inflammatory change. This finding is unchanged when compared to the prior CT examination. No evidence of bowel obstruction. No other abnormal bowel loops are identified. APPENDIX: Unremarkable. Normal appendix. PERITONEUM: Unremarkable. No free fluid. No free air. LYMPH NODES: Unremarkable. No enlarged lymph nodes. BLADDER: Decompressed REPRODUCTIVE: Normal prostate BONES: No acute fracture. OTHER FINDINGS: None. IMPRESSION: Findings consistent with acute uncomplicated pancreatitis superimposed upon chronic pancreatitis. Mural thickening of 2nd and 3rd duodenum and mild mural thickening of proximal jejunal loops. Nonspecific but likely secondary to the peripancreatic inflammatory change. Status post cholecystectomy with dilated common bile duct but no intrahepatic biliary dilatation. Fatty infiltration of the liver. Additional minor findings as above. Preliminary interpretation of this examination was reported by [facility] at 5:13 a.m. on 04/20/2017. There is concurrence of this report with the preliminary interpretation.
[2017-04-20] MEDS: Lactated Ringer's 1,000 ML IV SCH ×5 (11:18→21:27)
[2017-04-20 12:24] LABS: INR 0.9
[2017-04-20 12:47] LABS: CHOLESTEROL 100 mg/dL (0-199)
[2017-04-20 12:48] LABS: ALCOHOL SERUM < 10 mg/dl (0-10); MAGNESIUM 1.4 mg/dL (1.6-2.3)
[2017-04-20 13:59] LABS: BASO % 0.2 % (0.0-2.0); EOS % 0.2 % (0.0-4.0); HEMATOCRIT 48.9 % (35.0-51.0); LYMPH # 1.6 K/uL (1.0-4.3); LYMPH % 14.1 % (20.0-40.0); MEAN CORPUSCULAR HEMOGLOBIN 26.4 pg (27.0-31.0); MEAN CORPUSCULAR HGB CONC 32.6 g/dL (33.0-37.0); MEAN PLATELET VOLUME 8.9 fL (7.2-11.7); MONO # 0.7 K/uL (0.0-0.8); MONO % 6.7 % (0.0-10.0); RED CELL DISTRIBUTION WIDTH 20.6 % (11.5-14.5); WHITE BLOOD COUNT 11.1 K/uL (4.8-10.8)
[2017-04-20 14:07] LABS: CHLORIDE 82 mmol/L (98-107)
[2017-04-20 14:08] LABS: POTASSIUM 3.2 mmol/L (3.6-5.2); SODIUM 129 mmol/L (132-148)
[2017-04-20 14:10] LABS: ALB/GLOB RATIO 1.2 (1.0-2.1); BILIRUBIN,DIRECT 0.6 mg/dL (0.0-0.4); BILIRUBIN,TOTAL 1.3 mg/dL (0.2-1.3); BLOOD UREA NITROGEN 29 mg/dL (9-20); CARBON DIOXIDE 31 mmol/L (22-30); GFR AFRICAN-AMERICAN > 60; TOTAL PROTEIN 7.3 g/dL (6.3-8.3)
[2017-04-20 14:11] LABS: ALKALINE PHOSPHATASE 70 U/L (38-126); ALT/SGPT 101 U/L (21-72); AST/SGOT 124 U/L (17-59); CALCIUM 10.2 mg/dl (8.6-10.4); GLUCOSE,RANDOM 112 mg/dL (75-110); MAGNESIUM 1.5 mg/dL (1.6-2.3)
[2017-04-20] MEDS: Magnesium Sulfate 1 gm in D5W 1 GM/100 ML BAG IVPB SCH ×2 (14:30→15:08)
--- NOTE | 2017-04-20 15:01 | RAD ---
HISTORY: upper abd pain/ admission COMPARISON: 02/28/2017 TECHNIQUE: Chest PA and lateral FINDINGS: LUNGS: No active pulmonary disease. PLEURA: No significant pleural effusion identified. No pneumothorax apparent. CARDIOVASCULAR: Normal. OSSEOUS STRUCTURES: No significant abnormalities. VISUALIZED UPPER ABDOMEN: Normal. OTHER FINDINGS: None. IMPRESSION: No active disease.
--- NOTE | 2017-04-20 15:45 | US ---
HISTORY: elevated LFTs, biliary dilation COMPARISON: None. TECHNIQUE: Sonographic evaluation of the abdomen. FINDINGS: LIVER: Measures 14.8 cm. Diffusely increased echogenicity of the liver parenchyma. Consistent with fatty infiltration No mass. No intrahepatic bile duct dilatation. Hepatopetal portal venous flow is demonstrated. GALLBLADDER: Status post cholecystectomy. COMMON BILE DUCT: Measures 3 mm. No stones. No dilatation. PANCREAS: Unremarkable as visualized. No mass. No ductal dilatation. RIGHT KIDNEY: Measures 13.7cm. Normal echogenicity. No calculus, mass, or hydronephrosis. LEFT KIDNEY: Measures 13.2cm. Normal echogenicity. No calculus, mass, or hydronephrosis. SPLEEN: Normal in size and contour. No mass. AORTA: No aneurysmal dilatation. IVC: Unremarkable. OTHER FINDINGS: None. IMPRESSION: Fatty infiltration of the liver. No evidence of biliary obstruction. Status post cholecystectomy. Otherwise unremarkable.
[2017-04-20] MEDS: HYDROmorphone 1 mg/ml ISec IVP PRN (20:56)
[2017-04-21] MEDS: Lactated Ringer's 1,000 ML IV SCH ×5 (00:49→21:06)
[2017-04-21] MEDS: HYDROmorphone 1 mg/ml ISec IVP PRN ×5 (00:50→19:30)
--- NOTE | 2017-04-21 05:56 | CP.PCM.PN ---
<Liebrtad Almonte - Last Filed: 04/21/17 05:53> Subjective - Date & Time of Evaluation Date of Evaluation: 04/21/17 Time of Evaluation: 05:00 - Subjective Subjective: Medicine Note (PGY 1): Dr. Bradley's service Patient was seen and examined at bedside in the AM. Patient states the abdominal pain has not improved and it radiates to his back. Patient states he feels lightheaded, dizzy, and nauseous. Patient states he will rejoin a support group for drinking. He denies chest pain, shortness of breath, dyspnea , or vomiting. Objective - Vital Signs/Intake and Output Vital Signs (last 24 hours): Temp Pulse Resp BP Pulse Ox 97.8 F 86 20 150/88 97 04/20/17 16:00 04/20/17 16:00 04/20/17 16:00 04/20/17 16:00 04/20/17 16:00 Intake and Output: 04/20/17 04/21/17 18:59 06:59 Intake Total 2525 2300 Output Total 1400 Balance 2525 900 - Medications Medications: Current Medications Heparin Sodium (Porcine) (Heparin) 5,000 units SC Q12 [facility] Last Admin: 04/20/17 21:46 Dose: 5,000 units Hydromorphone HCl (Dilaudid) 1 mg IVP Q4H PRN PRN Reason: Pain, moderate (4-7) Last Admin: 04/21/17 04:44 Dose: 1 mg Lactated Ringer's (Lactated Ringer's) 1,000 mls @ 250 mls/hr IV .Q4H [facility] Last Admin: 04/21/17 04:46 Dose: 250 mls/hr Lorazepam (Ativan) 1 mg IVP Q6H PRN PRN Reason: Symptoms of alcohol withdrawl Last Admin: 04/21/17 05:42 Dose: 1 mg Nicotine (Nicoderm Cq) 1 patch TD DAILY [facility] Last Admin: 04/20/17 11:00 Dose: Not Given Pantoprazole Sodium (Protonix Inj) 40 mg IVP DAILY [facility] Last Admin: 04/20/17 09:02 Dose: 40 mg - Labs Labs: 04/20/17 13:54 04/20/17 13:54 PT 10.2 SECONDS (9.7-12.2) 04/20/17 12:06 INR 0.9 04/20/17 12:06 - Constitutional Appears: No Acute Distress - Head Exam Head Exam: NORMAL INSPECTION, NORMOCEPHALIC - Eye Exam Eye Exam: EOMI, PERRL Pupil Exam: NORMAL ACCOMODATION - ENT Exam ENT Exam: Mucous Membranes Moist - Respiratory Exam Respiratory Exam: Clear to Ausculation Bilateral, NORMAL BREATHING PATTERN. absent: Rales, Rhonchi, Wheezes, Stridor - Cardiovascular Exam Cardiovascular Exam: REGULAR RHYTHM, RRR, +S1, +S2. absent: JVD - GI/Abdominal Exam GI & Abdominal Exam: Guarding, Soft, Tenderness (epigastric tenderness), Hypoactive Bowel Sounds - Extremities Exam Extremities Exam: absent: Calf Tenderness, Joint Swelling, Pedal Edema, Tenderness - Back Exam Back Exam: CVA tenderness (L), CVA tenderness (R), tenderness - Neurological Exam Neurological Exam: Alert, Awake, Oriented x3 - Skin Skin Exam: Normal Color, Warm. absent: Petechiae, Rash Assessment and Plan - Assessment and Plan (Free Text) Assessment: 52 year old male the past medical history of pancreatitis and diverticulitis presents to the ED with pancreatitis. Plan: 1.) Pancreatitis * NPO * Dilaudid 1mg q4h PRN for pain * Consult Gastroenterology: Dr. Fisher --> help appreciated * Abdomen/Bladder Ultrasound (04/20/17): Fatty infiltration of the liver. No evidence of biliary obstruction. Status post cholecystectomy. * Abdomen/Pelvis CT (04/20/17): Findings consistent with acute uncomplicated pancreatitis superimposed upon chronic pancreatitis. Mural thickening of 2nd and 3rd duodenum and mild thickening of proximal jejunal loops. Nonspecific but likely secondary to the peripancreatic inflammatory change. Status post cholecystectomy and dilated common bile duct but no intrahepatic biliary dilatation. Fatty infiltration of the liver. * Cholesterol:100; LDL: <30; HDL:70; Triglycerides: 40 * Lipase: 1434 2.) Hypokalemia * replete potassium * f/u K+ and Mag+ 3.) Dehydration * Lactated Ringer's 1,000 mls @250 mls/hr IV Q4H 4.) Transaminitis * Likely secondary to alcohol * Hepatitis panel negative * HIV Antibody Screen: negative * Abdominal US (03/01/17): CBD 10.6 mm dilated common duct 5.) Abnormal urinalysis * f/u repeat urine culture 6.) Tobacco Abuse * Nicoderm 1 patch TD daily 7.) Prophylaxis * SCD * Pepcid 20mg BID <Laurel Bradley V - Last Filed: 04/21/17 17:13> Objective - Vital Signs/Intake and Output Vital Signs (last 24 hours): Temp Pulse Resp BP Pulse Ox 98.6 F 107 H 20 152/90 H 97 04/21/17 16:54 04/21/17 16:54 04/21/17 16:54 04/21/17 07:33 04/21/17 16:54 Intake and Output: 04/21/17 04/21/17 06:59 18:59 Intake Total 2300 3950 Output Total 1400 Balance 900 3950 - Medications Medications: Current Medications Heparin Sodium (Porcine) (Heparin) 5,000 units SC Q12 [facility] Last Admin: 04/21/17 10:18 Dose: 5,000 units Hydromorphone HCl (Dilaudid) 1 mg IVP Q4H PRN PRN Reason: Pain, moderate (4-7) Last Admin: 04/21/17 14:48 Dose: 1 mg Lactated Ringer's (Lactated Ringer's) 1,000 mls @ 250 mls/hr IV .Q4H [facility] Last Admin: 04/21/17 10:24 Dose: 250 mls/hr Lorazepam (Ativan) 1 mg IVP Q6H PRN PRN Reason: Symptoms of alcohol withdrawl Last Admin: 04/21/17 05:42 Dose: 1 mg Nicotine (Nicoderm Cq) 1 patch TD DAILY [facility] Last Admin: 04/21/17 10:18 Dose: 1 patch Ondansetron HCl (Zofran Inj) 4 mg IVP Q6H PRN PRN Reason: nausea Pantoprazole Sodium (Protonix Inj) 40 mg IVP DAILY [facility] Last Admin: 04/21/17 10:17 Dose: 40 mg - Labs Labs: 04/21/17 09:03 04/21/17 09:03 PT 10.2 SECONDS (9.7-12.2) 04/20/17 12:06 INR 0.9 04/20/17 12:06 Assessment and Plan (1) Chronic pancreatitis Status: Acute (2) Cholelithiasis Status: Chronic (3) Hypokalemia Status: Acute (4) GERD (gastroesophageal reflux disease) Status: Acute (5) Tobacco abuse Status: Acute (6) Dehydration Status: Acute (7) Hypercalcemia Status: Acute (8) Transaminitis Status: Acute (9) Abnormal urinalysis Status: Acute (10) Prophylactic measure Status: Acute Attending/Attestation - Attestation I have personally seen and examined this patient.: Yes I have fully participated in the care of the patient.: Yes I have reviewed all pertinent clinical information, including history, physical exam and plan: Yes Notes (Text): Patient seen, examined and case discussed with day-time resident. Patient seen this morning. Sleeping peacefully. Patient re-evaluated in the afternoon. Patient reporting nausea and abdominal pain; requesting for anti-nausea medication. Patient started on Zofran 4mg IV Q 6 hours PRN. Patient noted severe abdominal pain no associated vomitting or diarrhea. Patient 's abdominal xray does not show free air. Patient to continue on IV fluids and NPO status. Patient ordered for repeat BMP at 7pm given low potassium. Will be repleted. Monitor sodium. (1) Chronic pancreatitis Assessment & Plan: GI Consult (Dr. 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 No evidence of biliary obstruction. Status post cholecystecomy. Otherwise unremarkable. 04/20/17 Ct Abdomen/Pelvis: CT abdomen/pelvis (04/20/17): findings consistent with acute uncomplicated pancreatitis superimprosed upon chronic pancreatitis. Mural thickenining of the 2nd and 3rd duodenum and mild mural thickening of proximal jejunal loops. Peripancreatic inflammatory change. Status post post cholecystecomy with dilated common bile duct but no intrahepatic biliary dilatation. Fatty infiltration of the liver. 03/01/17 Ct abdomen/pelvis: Findings consistent with acute pancreatitis. Trace amount of free fluid in the upper abdomen. Foci of calcification in the pancreas consistent with chronic pancreatitis. Mild dilated main pancreatic duct. 05/27/16 MRCP: No pancreatic mass identified. Chronic pancreatitis. Mural thickening of the 2nd and 3rd portions of the duodenum, nonspecific. Mural thickening of the gastric fundus and body, nonspecific. Status: Acute (2) Cholelithiasis Assessment & Plan: GI Consult (Dr. 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 Mural thickenining of the 2nd and 3rd duodenum and mild mural thickening of proximal jejunal loops. Peripancreatic inflammatory change. Status post post cholecystecomy with dilated common bile duct but no intrahepatic biliary dilatation. Fatty infiltration of the liver. 03/01/17 Ct abdomen/pelvis: Findings consistent with acute pancreatitis. Trace amount of free fluid in the upper abdomen. Foci of calcification in the pancreas consistent with chronic pancreatitis. Mild dilated main pancreatic duct. 05/27/16 MRCP: No pancreatic mass identified. Chronic pancreatitis. Mural thickening of the 2nd and 3rd portions of the duodenum, nonspecific. Mural thickening of the gastric fundus and body, nonspecific. Status: Chronic (3) Hypokalemia Assessment & Plan: replete potassium f/u K+ at 7PM tonight Status: Acute (4) GERD (gastroesophageal reflux disease) Status: Acute (5) Tobacco abuse Assessment & Plan: Counselled extensive tobacco cessation Start Nicotone patch Status: Acute (6) Dehydration Assessment & Plan: LR 250 cc/hr Monitor CBC and BUN/Cr Status: Acute (7) Hypercalcemia Assessment & Plan: Ordered PTH intact, ionized Ca2+: pending Calcium has normalized Order for EKG reason: monitor QT Status: Acute (8) Transaminitis Assessment & Plan: Monitor liver function tests likely secondary to alcohol Hepatitis panel: negative HIV: negative Ab US (04/20/17): fatty infiltration of liver. No evidence of biliary obstruction. Status post cholecystecomy. Otherwise unremarkable. 04/20/17 Ct Abdomen/Pelvis: CT abdomen/pelvis (04/20/17): findings consistent with acute uncomplicated pancreatitis superimprosed upon chronic pancreatitis. Mural thickenining of the 2nd and 3rd duodenum and mild mural thickening of proximal jejunal loops. Peripancreatic inflammatory change. Status post post cholecystecomy with dilated common bile duct but no intrahepatic biliary dilatation. Fatty infiltration of the liver. Abdominal US (03/01/17): CBD 10.6 mm dilated common duct Status: Acute (9) Abnormal urinalysis Assessment & Plan: urine culture (04/20/17: No growth Renal US (04/20/17): no mass noted in kidneys order urine cytology: pending Status: Acute (10) Prophylactic measure Assessment & Plan: Protonix 40mg IV q daily heparin 5000 units subq12 hours Dilaudid 1mg IV Q 4hours PRN Ativan 1mg IV Q 6 hour PRn alcohol withdrawal Nocoderm Cq 1 path TD daily Status: Acute
[2017-04-21] MEDS ORDERED: Magnesium Sulfate 1 gm in D5W 1 GM/100 ML BAG IVPB ONE (06:16)
[2017-04-21] MEDS ORDERED: Potassium Chloride 20 mEq ER Tab PO ONE (07:13)
--- NOTE | 2017-04-21 07:27 | CP.PCM.PN ---
<Colleen Guerrero - Last Filed: 04/21/17 10:39> Subjective - Date & Time of Evaluation Date of Evaluation: 04/21/17 Time of Evaluation: 07:24 - Subjective Subjective: Gastroenterology fellow/PGY4 Progress Note Patient notes severe diffuse abdominal pain with note of not having lower abdominal pain with prior episodes of pancreatitis. He continues to have dry heaves with NPO diet. Denies bowel movement yesterday. A 12-point review of systems negative except for as above. Objective - Vital Signs/Intake and Output Vital Signs (last 24 hours): Temp Pulse Resp BP Pulse Ox 97.8 F 86 20 150/88 97 04/20/17 16:00 04/20/17 16:00 04/20/17 16:00 04/20/17 16:00 04/20/17 16:00 Intake and Output: 04/21/17 04/21/17 06:59 18:59 Intake Total 2300 1750 Output Total 1400 Balance 900 1750 - Medications Medications: Current Medications Heparin Sodium (Porcine) (Heparin) 5,000 units SC Q12 [facility] Last Admin: 04/20/17 21:46 Dose: 5,000 units Hydromorphone HCl (Dilaudid) 1 mg IVP Q4H PRN PRN Reason: Pain, moderate (4-7) Last Admin: 04/21/17 04:44 Dose: 1 mg Lactated Ringer's (Lactated Ringer's) 1,000 mls @ 250 mls/hr IV .Q4H [facility] Last Admin: 04/21/17 04:46 Dose: 250 mls/hr Lorazepam (Ativan) 1 mg IVP Q6H PRN PRN Reason: Symptoms of alcohol withdrawl Last Admin: 04/21/17 05:42 Dose: 1 mg Nicotine (Nicoderm Cq) 1 patch TD DAILY [facility] Last Admin: 04/20/17 11:00 Dose: Not Given Pantoprazole Sodium (Protonix Inj) 40 mg IVP DAILY [facility] Last Admin: 04/20/17 09:02 Dose: 40 mg - Labs Labs: 04/20/17 13:54 04/20/17 13:54 PT 10.2 SECONDS (9.7-12.2) 04/20/17 12:06 INR 0.9 04/20/17 12:06 - Constitutional Appears: Non-toxic, No Acute Distress - Head Exam Head Exam: ATRAUMATIC, NORMOCEPHALIC - Eye Exam Eye Exam: EOMI, PERRL Pupil Exam: PERRL. absent: Miosis, Mydriatic - ENT Exam ENT Exam: Mucous Membranes Moist, Normal Oropharynx - Neck Exam Neck Exam: Full ROM, Normal Inspection - Respiratory Exam Respiratory Exam: Clear to Ausculation Bilateral. absent: Rales, Rhonchi, Wheezes - Cardiovascular Exam Cardiovascular Exam: RRR, +S1, +S2. absent: Gallop, Rubs - GI/Abdominal Exam GI & Abdominal Exam: Distended, Soft, Tenderness, Hypoactive Bowel Sounds. absent: Firm, Guarding, Organomegaly, Rebound Additional comments: distended abdomen, diffuse tenderness to palpation, hypoactive bowel sounds - Extremities Exam Extremities Exam: Full ROM. absent: Pedal Edema - Neurological Exam Neurological Exam: Alert, Awake - Psychiatric Exam Psychiatric exam: Normal Affect, Normal Mood - Skin Skin Exam: Dry, Intact, Normal Color, Warm Assessment and Plan - Assessment and Plan (Free Text) Assessment: 52 year old male with history of alcohol and tobacco abuse, recurrent acute on chronic pancreatitis (EMAR review [id number]), complicated perforated diverticulitis s/p partial colectomy and colostomy 2004, colostomy reversal 2005 , and cholecystectomy with dilated CBD presenting with abdominal pain. Active treatment of alcoholic pancreatitis and intractable nausea/vomiting. Prior MRCP 04/2016 showed no filling defect of CBD. Prior EGD and colonoscopy over ten years ago endorsed to be normal. Plan: >abdominal xray- no acute findings >continue IVFs- LR 250cc/hr >NPO, advance diet as tolerated >supportive care: pain control, antiemetics, PPI >LFTs improving, Hepatitis panel negative >BUN/Cr and H/H improved >CT A/P-CBD 18mm with intrahepatic dilatation in setting of cholecystectomy >Ultrasound- CBD 3mm >pending IgG4 to rule out autoimmune pancreatitis- (IgG sent last admission) >Lipid panel unremarkable, UDS- reflects inpatient opiates >would benefit from outpatient EUS after acute resolution of pancreatitis to evaluate mildly dilated pancreatic duct >would benefit from colonoscopy for CRC screening >close monitoring of clinical course <Shayne Fisher - Last Filed: 04/21/17 10:49> Objective - Vital Signs/Intake and Output Vital Signs (last 24 hours): Temp Pulse Resp BP Pulse Ox 97.9 F 76 20 152/90 H 97 04/21/17 07:33 04/21/17 07:33 04/21/17 07:33 04/21/17 07:33 04/21/17 07:33 Intake and Output: 04/21/17 04/21/17 06:59 18:59 Intake Total 2300 1750 Output Total 1400 Balance 900 1750 - Medications Medications: Current Medications Heparin Sodium (Porcine) (Heparin) 5,000 units SC Q12 [facility] Last Admin: 04/21/17 10:18 Dose: 5,000 units Hydromorphone HCl (Dilaudid) 1 mg IVP Q4H PRN PRN Reason: Pain, moderate (4-7) Last Admin: 04/21/17 10:13 Dose: 1 mg Lactated Ringer's (Lactated Ringer's) 1,000 mls @ 250 mls/hr IV .Q4H [facility] Last Admin: 04/21/17 10:24 Dose: 250 mls/hr Lorazepam (Ativan) 1 mg IVP Q6H PRN PRN Reason: Symptoms of alcohol withdrawl Last Admin: 04/21/17 05:42 Dose: 1 mg Nicotine (Nicoderm Cq) 1 patch TD DAILY [facility] Last Admin: 04/21/17 10:18 Dose: 1 patch Pantoprazole Sodium (Protonix Inj) 40 mg IVP DAILY [facility] Last Admin: 04/21/17 10:17 Dose: 40 mg - Labs Labs: 04/21/17 09:03 04/21/17 09:03 PT 10.2 SECONDS (9.7-12.2) 04/20/17 12:06 INR 0.9 04/20/17 12:06 Attending/Attestation - Attestation I have personally seen and examined this patient.: Yes I have fully participated in the care of the patient.: Yes I have reviewed all pertinent clinical information, including history, physical exam and plan: Yes Notes (Text): 04/21/17 10:45 I have seen and examined patient with GI fellow. No acute events overnight. He continues to endorse generalized abdominal pain, worse in lianet-umbilical region. He also reports ongoing nausea but denies vomiting, fever/chills, or diarrhea. Review of vitals from today shows elevated BP. Abdominal pain - acute on chronic pancreatitis History of perforated diverticulitis s/p partial resection Abdominal US reviewed by me showing 3 mm CBD without presence of choledocholithiasis - Continue with supportive care, IVF hydration - Pain control - NPO - Awaiting IgG4 subset panel results - LFTs trending down, continue to monitor - Patient would benefit from elective outpatient EUS given chronic pancreatitis with PD dilation following resolution of acute episode
[2017-04-21 09:20] LABS: BASO # 0.1 K/uL (0.0-0.2); BASO % 0.5 % (0.0-2.0); HEMATOCRIT 48.2 % (35.0-51.0); LYMPH # 0.8 K/uL (1.0-4.3); LYMPH % 5.2 % (20.0-40.0); MEAN CELL VOLUME 80.7 fL (80.0-94.0); MEAN CORPUSCULAR HEMOGLOBIN 26.7 pg (27.0-31.0); MEAN CORPUSCULAR HGB CONC 33.1 g/dL (33.0-37.0); MEAN PLATELET VOLUME 9.1 fL (7.2-11.7); MONO # 0.5 K/uL (0.0-0.8); MONO % 3.7 % (0.0-10.0); PLATELET COUNT 131 K/uL (130-400); RED CELL DISTRIBUTION WIDTH 20.2 % (11.5-14.5); WHITE BLOOD COUNT 14.7 K/uL (4.8-10.8)
[2017-04-21 09:57] LABS: CHLORIDE 83 mmol/L (98-107); POTASSIUM 2.9 mmol/L (3.6-5.2); SODIUM 126 mmol/L (132-148)
[2017-04-21 09:59] LABS: BILIRUBIN,TOTAL 1.2 mg/dL (0.2-1.3); CARBON DIOXIDE 26 mmol/L (22-30); GFR AFRICAN-AMERICAN > 60
[2017-04-21 10:00] LABS: ALB/GLOB RATIO 1.2 (1.0-2.1); ALKALINE PHOSPHATASE 74 U/L (38-126); ALT/SGPT 80 U/L (21-72); AST/SGOT 80 U/L (17-59); BLOOD UREA NITROGEN 11 mg/dL (9-20); CALCIUM 8.8 mg/dl (8.6-10.4); GLUCOSE,RANDOM 118 mg/dL (75-110); MAGNESIUM 1.9 mg/dL (1.6-2.3); PHOSPHOROUS 2.4 mg/dL (2.5-4.5); TOTAL PROTEIN 7.1 g/dL (6.3-8.3)
[2017-04-21 10:52] LABS: LARGE PLATELETS PRESENT; NEUTROPHIL 91 % (50-75); TOTAL CELLS COUNTED 100
--- NOTE | 2017-04-21 15:19 | RAD ---
HISTORY: distension, abdominal pain, vomiting COMPARISON: No prior. FINDINGS: BOWEL: Normal. No obstruction. No free air. BONES: Normal. OTHER FINDINGS: None. IMPRESSION: No active disease.
[2017-04-21 19:04] LABS: RBC URINE 1 /hpf (0-3); URINE BILIRUBIN NEGATIVE (NEGATIVE); URINE BLOOD 1+ (NEGATIVE); URINE COLOR Yellow (YELLOW); URINE GLUCOSE (UA) 1+ mg/dL (Normal); URINE KETONE 2+ mg/dL (NEGATIVE); URINE LEUKOCYTE ESTERASE NEG Leu/uL (Negative); URINE PROTEIN 1+ mg/dL (NEGATIVE); URINE UROBILINOGEN NORMAL mg/dL (0.2-1.0); WBC URINE < 1 /hpf (0-5)
[2017-04-22] MEDS: HYDROmorphone 1 mg/ml ISec IVP PRN ×5 (00:18→19:33)
[2017-04-22] MEDS: Lactated Ringer's 1,000 ML IV SCH ×10 (00:30→22:47)
[2017-04-22 03:36] LABS: CHLORIDE 90 mmol/L (98-107); SODIUM 129 mmol/L (132-148)
[2017-04-22 03:37] LABS: POTASSIUM 3.2 mmol/L (3.6-5.2)
[2017-04-22 03:38] LABS: BASO % 0.1 % (0.0-2.0); EOS % 0.1 % (0.0-4.0); HEMATOCRIT 45.5 % (35.0-51.0); LYMPH # 1.2 K/uL (1.0-4.3); LYMPH % 8.8 % (20.0-40.0); MEAN CELL VOLUME 80.2 fL (80.0-94.0); MEAN CORPUSCULAR HGB CONC 33.6 g/dL (33.0-37.0); MEAN PLATELET VOLUME 9.4 fL (7.2-11.7); MONO # 0.5 K/uL (0.0-0.8); PLATELET COUNT 101 K/uL (130-400); RED CELL DISTRIBUTION WIDTH 20.3 % (11.5-14.5); WHITE BLOOD COUNT 13.4 K/uL (4.8-10.8)
[2017-04-22 03:39] LABS: ALB/GLOB RATIO 1.1 (1.0-2.1); ALKALINE PHOSPHATASE 61 U/L (38-126); ALT/SGPT 57 U/L (21-72); AST/SGOT 44 U/L (17-59); BILIRUBIN,TOTAL 1.1 mg/dL (0.2-1.3); BLOOD UREA NITROGEN 8 mg/dL (9-20); CARBON DIOXIDE 26 mmol/L (22-30); GFR AFRICAN-AMERICAN > 60; GLUCOSE,RANDOM 97 mg/dL (75-110); TOTAL PROTEIN 6.5 g/dL (6.3-8.3)
[2017-04-22 03:40] LABS: CALCIUM 8.8 mg/dl (8.6-10.4); MAGNESIUM 1.8 mg/dL (1.6-2.3)
[2017-04-22 04:08] LABS: NEUTROPHIL 90 % (50-75); TOTAL CELLS COUNTED 100
[2017-04-22 04:09] LABS: LARGE PLATELETS PRESENT
--- NOTE | 2017-04-22 11:21 | CP.PCM.PN ---
<Syed Encinas - Last Filed: 04/22/17 11:28> Subjective - Date & Time of Evaluation Date of Evaluation: 04/22/17 Time of Evaluation: 07:00 - Subjective Subjective: PGY4 GI Fellow Progress Note Patient seen and examined bedside this morning. The patient denies any new complaints but continues to have 7/10 epigastric pain radiating to both flanks and his mid lower back. Denies any vomiting but remains nauseated. No appetite. 12 system ROS performed and negative except where stated. Objective - Vital Signs/Intake and Output Vital Signs (last 24 hours): Temp Pulse Resp BP Pulse Ox 98.6 F 103 H 20 136/91 H 96 04/22/17 08:00 04/22/17 08:00 04/22/17 08:00 04/22/17 08:00 04/22/17 08:00 Intake and Output: 04/22/17 04/22/17 06:59 18:59 Intake Total 2000 2000 Output Total 1600 Balance 400 2000 - Medications Medications: Current Medications Heparin Sodium (Porcine) (Heparin) 5,000 units SC Q12 [facility] Last Admin: 04/22/17 10:40 Dose: 5,000 units Hydromorphone HCl (Dilaudid) 1 mg IVP Q4H PRN PRN Reason: Pain, moderate (4-7) Last Admin: 04/22/17 10:26 Dose: 1 mg Lactated Ringer's (Lactated Ringer's) 1,000 mls @ 250 mls/hr IV .Q4H [facility] Last Admin: 04/22/17 10:33 Dose: 250 mls/hr Lorazepam (Ativan) 1 mg IVP Q6H PRN PRN Reason: Symptoms of alcohol withdrawl Last Admin: 04/22/17 06:50 Dose: 1 mg Nicotine (Nicoderm Cq) 1 patch TD DAILY [facility] Last Admin: 04/22/17 10:41 Dose: 1 patch Ondansetron HCl (Zofran Inj) 4 mg IVP Q6H PRN PRN Reason: nausea Pantoprazole Sodium (Protonix Inj) 40 mg IVP DAILY [facility] Last Admin: 04/22/17 10:40 Dose: 40 mg - Labs Labs: 04/22/17 04:00 04/22/17 03:41 PT 10.2 SECONDS (9.7-12.2) 04/20/17 12:06 INR 0.9 04/20/17 12:06 - Constitutional Appears: Non-toxic, No Acute Distress - Eye Exam Eye Exam: EOMI, PERRL - ENT Exam ENT Exam: Mucous Membranes Dry - Respiratory Exam Respiratory Exam: Clear to Ausculation Bilateral. absent: Rales, Rhonchi, Wheezes - Cardiovascular Exam Cardiovascular Exam: RRR, +S1, +S2 - GI/Abdominal Exam GI & Abdominal Exam: Soft, Tenderness (epigastric, RUQ, LUQ), Normal Bowel Sounds. absent: Distended, Firm, Guarding, Rigid, Organomegaly - Extremities Exam Extremities Exam: Normal Inspection. absent: Pedal Edema - Neurological Exam Neurological Exam: Alert, Awake, Oriented x3 - Psychiatric Exam Psychiatric exam: Normal Affect, Normal Mood - Skin Skin Exam: Dry, Warm Assessment and Plan - Assessment and Plan (Free Text) Assessment: Patient is a 52yo male with PMHx significant for recurrent pancreatitis, complicated diverticulitis with perforation s/p partial colectomy w colostomy and eventual reversal/reanastamosis, tobacco abuse who presented to the ED with epigastric pain. -Acute on chronic pancreatitis Plan: -Strongly urge EtOH abstinence -IVF as ordered, LR @200cc/hr -NPO for now given persistent abdominal pain, nausea -Advance to liquid diet if symptoms improve -Antiemetics/analgesia per primary service -Monitor clinical course <Rustam Deleon - Last Filed: 04/22/17 14:38> Objective - Vital Signs/Intake and Output Vital Signs (last 24 hours): Temp Pulse Resp BP Pulse Ox 98.6 F 103 H 20 136/91 H 96 04/22/17 08:00 04/22/17 08:00 04/22/17 08:00 04/22/17 08:00 04/22/17 08:00 Intake and Output: 04/22/17 04/22/17 06:59 18:59 Intake Total 1999 1999 Output Total 1599 Balance 400 1999 - Medications Medications: Current Medications Heparin Sodium (Porcine) (Heparin) 5,000 units SC Q12 [facility] Last Admin: 04/22/17 10:40 Dose: 5,000 units Hydromorphone HCl (Dilaudid) 1 mg IVP Q4H PRN PRN Reason: Pain, moderate (4-7) Last Admin: 04/22/17 10:26 Dose: 1 mg Lactated Ringer's (Lactated Ringer's) 1,000 mls @ 250 mls/hr IV .Q4H [facility] Last Admin: 04/22/17 10:33 Dose: 250 mls/hr Lorazepam (Ativan) 1 mg IVP Q6H PRN PRN Reason: Symptoms of alcohol withdrawl Last Admin: 04/22/17 06:50 Dose: 1 mg Nicotine (Nicoderm Cq) 1 patch TD DAILY [facility] Last Admin: 04/22/17 10:41 Dose: 1 patch Ondansetron HCl (Zofran Inj) 4 mg IVP Q6H PRN PRN Reason: nausea Pantoprazole Sodium (Protonix Inj) 40 mg IVP DAILY [facility] Last Admin: 04/22/17 10:40 Dose: 40 mg - Labs Labs: 04/22/17 04:00 04/22/17 03:41 PT 10.2 SECONDS (9.7-12.2) 04/20/17 12:06 INR 0.9 04/20/17 12:06 Attending/Attestation - Attestation I have personally seen and examined this patient.: Yes I have fully participated in the care of the patient.: Yes I have reviewed all pertinent clinical information, including history, physical exam and plan: Yes Notes (Text): 04/22/17 14:37 52 year old male with h/o recurrent pancreatitis, h/o diverticulitis with perforation s/p Dc, s/p reversal who presents with abdominal pain, found to have pancreatitis. 1. Acute pancreatitis Plan: -continue IV hydration, pain control, advance diet as tolerated to low fat -etoh/smoking cessation advised -will monitor
--- NOTE | 2017-04-22 15:50 | CP.PCM.PN ---
<Libertad Almonte - Last Filed: 04/22/17 17:12> Subjective - Date & Time of Evaluation Date of Evaluation: 04/22/17 Time of Evaluation: 09:00 - Subjective Subjective: Medicine Note (PGY 1): Dr. Parnell's service Patient was seen and examined at bedside in the AM. Patient states the abdominal pain has slightly improved. The pain is currently an 8 1/2 out of 10. Per patient the pain radiates to his back. Patient states he feels dizzy. Patient states he will rejoin a support group for drinking. He denies chest pain, shortness of breath, dyspnea, nausea or vomiting. Objective - Vital Signs/Intake and Output Vital Signs (last 24 hours): Temp Pulse Resp BP Pulse Ox 98.6 F 103 H 20 136/91 H 96 04/22/17 08:00 04/22/17 08:00 04/22/17 08:00 04/22/17 08:00 04/22/17 08:00 Intake and Output: 04/22/17 04/22/17 06:59 18:59 Intake Total 2000 4000 Output Total 1600 Balance 400 4000 - Medications Medications: Current Medications Heparin Sodium (Porcine) (Heparin) 5,000 units SC Q12 [facility] Last Admin: 04/22/17 10:40 Dose: 5,000 units Hydromorphone HCl (Dilaudid) 1 mg IVP Q4H PRN PRN Reason: Pain, moderate (4-7) Last Admin: 04/22/17 14:44 Dose: 1 mg Lactated Ringer's (Lactated Ringer's) 1,000 mls @ 250 mls/hr IV .Q4H [facility] Last Admin: 04/22/17 14:47 Dose: 250 mls/hr Potassium Chloride (Potassium Chloride 20 Meq/100 Ml) 20 meq in 100 mls @ 50 mls/hr IVPB ONCE ONE Stop: 04/22/17 17:42 Potassium Chloride (Potassium Chloride 20 Meq/100 Ml) 20 meq in 100 mls @ 50 mls/hr IVPB ONCE ONE Stop: 04/22/17 17:44 Lorazepam (Ativan) 1 mg IVP Q6H PRN PRN Reason: Symptoms of alcohol withdrawl Last Admin: 04/22/17 06:50 Dose: 1 mg Nicotine (Nicoderm Cq) 1 patch TD DAILY [facility] Last Admin: 04/22/17 10:41 Dose: 1 patch Ondansetron HCl (Zofran Inj) 4 mg IVP Q6H PRN PRN Reason: nausea Pantoprazole Sodium (Protonix Inj) 40 mg IVP DAILY [facility] Last Admin: 04/22/17 10:40 Dose: 40 mg - Labs Labs: 04/22/17 04:00 04/22/17 03:41 PT 10.2 SECONDS (9.7-12.2) 04/20/17 12:06 INR 0.9 04/20/17 12:06 - Constitutional Appears: No Acute Distress - Head Exam Head Exam: NORMAL INSPECTION, NORMOCEPHALIC - Eye Exam Eye Exam: EOMI, PERRL Pupil Exam: NORMAL ACCOMODATION - ENT Exam ENT Exam: Mucous Membranes Moist - Respiratory Exam Respiratory Exam: Clear to Ausculation Bilateral, NORMAL BREATHING PATTERN. absent: Rales, Rhonchi, Wheezes, Stridor - Cardiovascular Exam Cardiovascular Exam: REGULAR RHYTHM, RRR, +S1, +S2. absent: JVD - GI/Abdominal Exam GI & Abdominal Exam: Firm, Tenderness (epigastric tenderness), Normal Bowel Sounds - Extremities Exam Extremities Exam: absent: Joint Swelling, Pedal Edema, Tenderness - Back Exam Back Exam: tenderness (Paraspinal Tenderness at T7-T9) - Neurological Exam Neurological Exam: Alert, Awake, Oriented x3 - Psychiatric Exam Psychiatric exam: Normal Mood - Skin Skin Exam: Dry, Intact, Normal Color, Warm. absent: Petechiae, Rash Assessment and Plan - Assessment and Plan (Free Text) Assessment: 52 year old male the past medical history of pancreatitis and diverticulitis presents to the ED with pancreatitis. Plan: 1.) Pancreatitis secondary to Alcohol * NPO * Dilaudid 1mg q4h PRN for pain * Dilaudid 2mg q4h one time dose for pain (04/22/17) * Consult Gastroenterology: Dr. Fisher --> help appreciated * Abdomen/Bladder Ultrasound (04/20/17): Fatty infiltration of the liver. No evidence of biliary obstruction. Status post cholecystectomy. * Abdomen/Pelvis CT (04/20/17): Findings consistent with acute uncomplicated pancreatitis superimposed upon chronic pancreatitis. Mural thickening of 2nd and 3rd duodenum and mild thickening of proximal jejunal loops. Nonspecific but likely secondary to the peripancreatic inflammatory change. Status post cholecystectomy and dilated common bile duct but no intrahepatic biliary dilatation. Fatty infiltration of the liver. * Cholesterol:100; LDL: <30; HDL:70; Triglycerides: 40 * Lipase: 1434 * Monitor Lipase 2.) Hypokalemia * replete potassium * f/u K+ and Mag+ 3.) Decreased Platelets * 04/20/17: 163; 04/21/17: 131; 04/22/17: 101 * Monitor 4.) Dehydration * Lactated Ringer's 1,000 mls @250 mls/hr IV Q4H 5.) Transaminitis secondary to Alcohol * Hepatitis panel negative * HIV Antibody Screen: negative * Abdominal US (03/01/17): CBD 10.6 mm dilated common duct 6.) Abnormal urinalysis * urine culture (04/20/17): No growth * urine culture (04/21/17) Probable contamination 7.) Tobacco Abuse * Nicoderm 1 patch TD daily 8.) Prophylaxis * SCD * Pepcid 20mg BID <Rafita Parnell - Last Filed: 05/22/17 14:46> Objective - Vital Signs/Intake and Output Vital Signs (last 24 hours): Temp Pulse Resp BP Pulse Ox 98.4 F 94 H 20 106/72 97 04/25/17 16:00 04/25/17 16:00 04/25/17 16:00 04/25/17 16:00 04/25/17 16:00 - Labs Labs: 04/25/17 06:35 04/25/17 06:35 PT 10.2 SECONDS (9.7-12.2) 04/20/17 12:06 INR 0.9 04/20/17 12:06 Attending/Attestation - Attestation I have personally seen and examined this patient.: Yes I have fully participated in the care of the patient.: Yes I have reviewed all pertinent clinical information, including history, physical exam and plan: Yes Notes (Text): Patient seen and examined with the resident. Agree with the resident's evaluation, assessment and plan. 1.) Pancreatitis secondary to Alcohol 2.) Hypokalemia 3.) Decreased Platelets 4.) Dehydration 5.) Transaminitis secondary to Alcohol
[2017-04-22 19:35] LABS: CALCIUM 10.6 mg/dL (8.6-10.3)
[2017-04-23] MEDS: HYDROmorphone 1 mg/ml ISec IVP PRN ×6 (01:29→23:55)
[2017-04-23] MEDS: Lactated Ringer's 1,000 ML IV SCH ×7 (01:33→23:26)
[2017-04-23 07:33] LABS: BASO % 0.3 % (0.0-2.0); EOS # 0.1 K/uL (0.0-0.7); EOS % 0.9 % (0.0-4.0); HEMATOCRIT 45.7 % (35.0-51.0); LYMPH # 1.1 K/uL (1.0-4.3); MEAN CELL VOLUME 81.9 fL (80.0-94.0); MEAN CORPUSCULAR HEMOGLOBIN 26.6 pg (27.0-31.0); MEAN CORPUSCULAR HGB CONC 32.5 g/dL (33.0-37.0); MEAN PLATELET VOLUME 10.1 fL (7.2-11.7); MONO # 0.5 K/uL (0.0-0.8); MONO % 6.3 % (0.0-10.0); RED CELL DISTRIBUTION WIDTH 20.8 % (11.5-14.5); WHITE BLOOD COUNT 7.5 K/uL (4.8-10.8)
[2017-04-23 07:47] LABS: CHLORIDE 94 mmol/L (98-107); POTASSIUM 3.3 mmol/L (3.6-5.2); SODIUM 132 mmol/L (132-148)
[2017-04-23 07:50] LABS: ALB/GLOB RATIO 1.1 (1.0-2.1); ALKALINE PHOSPHATASE 56 U/L (38-126); ALT/SGPT 40 U/L (21-72); AST/SGOT 38 U/L (17-59); BILIRUBIN,TOTAL 1.1 mg/dL (0.2-1.3); BLOOD UREA NITROGEN 7 mg/dL (9-20); CALCIUM 9.4 mg/dl (8.6-10.4); CARBON DIOXIDE 29 mmol/L (22-30); GFR AFRICAN-AMERICAN > 60; GLUCOSE,RANDOM 95 mg/dL (75-110); MAGNESIUM 1.8 mg/dL (1.6-2.3); PHOSPHOROUS 2.6 mg/dL (2.5-4.5); TOTAL PROTEIN 6.3 g/dL (6.3-8.3)
--- NOTE | 2017-04-23 07:54 | CP.PCM.PN ---
<Syed Encinas - Last Filed: 04/23/17 07:54> Subjective - Date & Time of Evaluation Date of Evaluation: 04/23/17 Time of Evaluation: 06:35 - Subjective Subjective: PGY4 GI Fellow Progress Note Patient seen and examined bedside this morning. Complaining of abdominal distention and persistent abdominal/back pain. No flatus since admission and no BM since Saturday. Minimal appetite. 12 system ROS performed and negative except where stated. Objective - Vital Signs/Intake and Output Vital Signs (last 24 hours): Temp Pulse Resp BP Pulse Ox 97.9 F 93 H 20 149/88 96 04/23/17 01:56 04/23/17 01:56 04/23/17 01:56 04/23/17 01:56 04/23/17 01:56 Intake and Output: 04/23/17 04/23/17 06:59 18:59 Intake Total 2000 Output Total 1600 Balance 400 - Medications Medications: Current Medications Heparin Sodium (Porcine) (Heparin) 5,000 units SC Q12 [facility] Last Admin: 04/22/17 21:07 Dose: 5,000 units Hydromorphone HCl (Dilaudid) 1 mg IVP Q4H PRN PRN Reason: Pain, moderate (4-7) Last Admin: 04/23/17 06:24 Dose: 1 mg Lactated Ringer's (Lactated Ringer's) 1,000 mls @ 250 mls/hr IV .Q4H [facility] Last Admin: 04/23/17 01:34 Dose: Not Given Lorazepam (Ativan) 1 mg IVP Q6H PRN PRN Reason: Symptoms of alcohol withdrawl Last Admin: 04/22/17 06:50 Dose: 1 mg Nicotine (Nicoderm Cq) 1 patch TD DAILY [facility] Last Admin: 04/22/17 10:41 Dose: 1 patch Ondansetron HCl (Zofran Inj) 4 mg IVP Q6H PRN PRN Reason: nausea Pantoprazole Sodium (Protonix Inj) 40 mg IVP DAILY [facility] Last Admin: 04/22/17 10:40 Dose: 40 mg - Labs Labs: 04/23/17 07:25 04/23/17 07:25 PT 10.2 SECONDS (9.7-12.2) 04/20/17 12:06 INR 0.9 04/20/17 12:06 - Constitutional Appears: Non-toxic, No Acute Distress - Eye Exam Eye Exam: EOMI, PERRL - ENT Exam ENT Exam: Mucous Membranes Moist - Respiratory Exam Respiratory Exam: Clear to Ausculation Bilateral. absent: Rales, Rhonchi, Wheezes - Cardiovascular Exam Cardiovascular Exam: RRR, +S1, +S2 - GI/Abdominal Exam GI & Abdominal Exam: Distended, Soft, Tenderness (diffusely), Normal Bowel Sounds. absent: Firm, Guarding, Rigid, Organomegaly - Extremities Exam Extremities Exam: Normal Inspection. absent: Pedal Edema - Neurological Exam Neurological Exam: Alert, Awake, Oriented x3 - Psychiatric Exam Psychiatric exam: Normal Affect, Normal Mood - Skin Skin Exam: Dry, Warm Assessment and Plan - Assessment and Plan (Free Text) Assessment: Patient is a 52yo male with PMHx significant for recurrent pancreatitis, complicated diverticulitis with perforation s/p partial colectomy w colostomy and eventual reversal/reanastamosis, tobacco abuse who presented to the ED with epigastric pain. -Acute pancreatitis -Constipation -Abdominal distention, no flatus - R/O ileus -Thrombocytopenia Plan: -Check abdominal plain film -If symptoms persist or worsen, consider repeating CT A/P -Cont IVF as ordered, LR @250cc/hr -Advance diet to liquid diet if no evidence of ileus on plain film -Antiemetics/analgesia per primary service -Consider discontinuation of Heparin given plt count 214-->88 since initiation -No need to trend lipase -Monitor clinical course <Rustam Deleon - Last Filed: 04/23/17 11:41> Objective - Vital Signs/Intake and Output Vital Signs (last 24 hours): Temp Pulse Resp BP Pulse Ox 97.9 F 93 H 20 149/88 96 04/23/17 01:56 04/23/17 01:56 04/23/17 01:56 04/23/17 01:56 04/23/17 01:56 Intake and Output: 04/23/17 04/23/17 06:59 18:59 Intake Total 2000 Output Total 1600 Balance 400 - Medications Medications: Current Medications Heparin Sodium (Porcine) (Heparin) 5,000 units SC Q12 [facility] Last Admin: 04/23/17 10:32 Dose: 5,000 units Hydromorphone HCl (Dilaudid) 1 mg IVP Q4H PRN PRN Reason: Pain, moderate (4-7) Last Admin: 04/23/17 10:33 Dose: 1 mg Lactated Ringer's (Lactated Ringer's) 1,000 mls @ 250 mls/hr IV .Q4H [facility] Last Admin: 04/23/17 08:30 Dose: Not Given Potassium Chloride (Potassium Chloride 20 Meq/100 Ml) 20 meq in 100 mls @ 50 mls/hr IVPB ONCE ONE Stop: 04/23/17 12:09 Last Admin: 04/23/17 10:41 Dose: 50 mls/hr Potassium Chloride (Potassium Chloride 20 Meq/100 Ml) 20 meq in 100 mls @ 50 mls/hr IVPB ONCE ONE Stop: 04/23/17 14:09 Lorazepam (Ativan) 1 mg IVP Q6H PRN PRN Reason: Symptoms of alcohol withdrawl Last Admin: 04/22/17 06:50 Dose: 1 mg Nicotine (Nicoderm Cq) 1 patch TD DAILY [facility] Last Admin: 04/23/17 10:54 Dose: 1 patch Ondansetron HCl (Zofran Inj) 4 mg IVP Q6H PRN PRN Reason: nausea Pantoprazole Sodium (Protonix Inj) 40 mg IVP DAILY [facility] Last Admin: 04/23/17 10:31 Dose: 40 mg - Labs Labs: 04/23/17 07:25 04/23/17 07:25 PT 10.2 SECONDS (9.7-12.2) 04/20/17 12:06 INR 0.9 04/20/17 12:06 Attending/Attestation - Attestation I have personally seen and examined this patient.: Yes I have fully participated in the care of the patient.: Yes I have reviewed all pertinent clinical information, including history, physical exam and plan: Yes Notes (Text): 04/23/17 11:41 52 year old male with h/o recurrent pancreatitis, h/o diverticulitis with perforation s/p Dc, s/p reversal who presents with abdominal pain, found to have pancreatitis. 1. Acute pancreatitis 2. Constipation Plan: -continue IV hydration, pain control, advance diet as tolerated to low fat -etoh/smoking cessation advised -start bowel regimen, abdominal x ray shows increasing constipation
--- NOTE | 2017-04-23 11:31 | RAD ---
HISTORY: abdominal distention COMPARISON: 04/21/2017 FINDINGS: BOWEL: Right colonic stool retention increased since the prior exam suggested. No bowel obstruction suspect BONES: Normal. OTHER FINDINGS: Right upper quadrant post cholecystectomy clips. Additional clips project of the left sacral wing unchanged Few paracentral hemipelvic calcifications (bilateral -phleboliths suggested) IMPRESSION: Interval increase stool retention right colon most notable. No mechanical bowel obstruction appreciated
[2017-04-23] MEDS: POLYETHYLENE GLYCOL 3350 17 GM/Dose PACKET PO SCH ×2 (12:55→18:50)
[2017-04-23] MEDS ORDERED: Bisacodyl 5mg EC Tab PO ONE (14:11)
[2017-04-23] MEDS ORDERED: Aluminum Hydroxide/Magnesium Hydroxide Susp (30 mL) PO PRN (14:28)
--- NOTE | 2017-04-23 15:43 | CP.PCM.PN ---
<Libertad Almonte - Last Filed: 04/23/17 20:41> Subjective - Date & Time of Evaluation Date of Evaluation: 04/23/17 Time of Evaluation: 09:00 - Subjective Subjective: Medicine Note (PGY 1): Dr. Parnell's service Patient was seen and examined at bedside in the AM. Patient states the abdominal pain is mostly in his lower abdomen and it currently is a 7 1/2 -8 out of 10. Patient states the pain is also still in his back. Patient states he also has some heartburn. Patient states he feels a bit nauseated and is going slowly with the liquid diet. He denies chest pain, shortness of breath, dyspnea, or vomiting. Objective - Vital Signs/Intake and Output Vital Signs (last 24 hours): Temp Pulse Resp BP Pulse Ox 97.9 F 93 H 20 149/88 96 04/23/17 01:56 04/23/17 01:56 04/23/17 01:56 04/23/17 01:56 04/23/17 01:56 Intake and Output: 04/23/17 04/23/17 06:59 18:59 Intake Total 2000 1320 Output Total 1600 Balance 400 1320 - Medications Medications: Current Medications Al Hydrox/Mg Hydrox/Simethicone (Maalox 30 Ml) 30 ml PO BID PRN PRN Reason: Indigestion / Heartburn Last Admin: 04/23/17 15:06 Dose: 30 ml Hydromorphone HCl (Dilaudid) 1 mg IVP Q4H PRN PRN Reason: Pain, moderate (4-7) Last Admin: 04/23/17 15:05 Dose: 1 mg Lactated Ringer's (Lactated Ringer's) 1,000 mls @ 125 mls/hr IV .Q8H [facility] Lorazepam (Ativan) 1 mg IVP Q6H PRN PRN Reason: Symptoms of alcohol withdrawl Last Admin: 04/22/17 06:50 Dose: 1 mg Nicotine (Nicoderm Cq) 1 patch TD DAILY [facility] Last Admin: 04/23/17 10:54 Dose: 1 patch Ondansetron HCl (Zofran Inj) 4 mg IVP Q6H PRN PRN Reason: nausea Pantoprazole Sodium (Protonix Inj) 40 mg IVP DAILY [facility] Last Admin: 04/23/17 10:31 Dose: 40 mg Polyethylene Glycol (Miralax) 17 gm PO BID [facility] Last Admin: 04/23/17 12:55 Dose: 17 gm - Labs Labs: 04/23/17 07:25 04/23/17 07:25 PT 10.2 SECONDS (9.7-12.2) 04/20/17 12:06 INR 0.9 04/20/17 12:06 - Constitutional Appears: No Acute Distress - Head Exam Head Exam: NORMAL INSPECTION, NORMOCEPHALIC - Eye Exam Eye Exam: Normal appearance - ENT Exam ENT Exam: Mucous Membranes Moist - Respiratory Exam Respiratory Exam: Clear to Ausculation Bilateral, NORMAL BREATHING PATTERN. absent: Rales, Rhonchi, Wheezes, Stridor - Cardiovascular Exam Cardiovascular Exam: REGULAR RHYTHM, RRR, +S1, +S2. absent: JVD - GI/Abdominal Exam GI & Abdominal Exam: Firm, Tenderness (lower abdomen ), Hypoactive Bowel Sounds - Extremities Exam Extremities Exam: absent: Calf Tenderness, Joint Swelling, Pedal Edema, Tenderness - Neurological Exam Neurological Exam: Alert, Awake, Oriented x3 - Psychiatric Exam Psychiatric exam: Normal Mood - Skin Skin Exam: Normal Color, Warm Assessment and Plan - Assessment and Plan (Free Text) Assessment: 52 year old male the past medical history of pancreatitis and diverticulitis presents to the ED with pancreatitis. Plan: 1.) Pancreatitis secondary to Alcohol * Liquid Diet * Dilaudid 1mg q4h PRN for pain * Dilaudid 2mg q4h one time dose for pain (04/22/17) * Consult Gastroenterology: Dr. Fisher --> help appreciated * Abdomen/Bladder Ultrasound (04/20/17): Fatty infiltration of the liver. No evidence of biliary obstruction. Status post cholecystectomy. * Abdomen/Pelvis CT (04/20/17): Findings consistent with acute uncomplicated pancreatitis superimposed upon chronic pancreatitis. Mural thickening of 2nd and 3rd duodenum and mild thickening of proximal jejunal loops. Nonspecific but likely secondary to the peripancreatic inflammatory change. Status post cholecystectomy and dilated common bile duct but no intrahepatic biliary dilatation. Fatty infiltration of the liver. * Cholesterol:100; LDL: <30; HDL:70; Triglycerides: 40 * Lipase on admission: 1434 * Lipase (04/20/17): 140 * Abdominal X-ray (04/23/17): Interval increase stool retention right colon most notable. No mechanical bowel obstruction appreciated. * Dulcolax 5mg PO 2.) Hypokalemia * replete potassium * f/u K+ and Mag+ 3.) Thrombocytopenia * 04/23/17: 88; 04/22/17: 101; 04/21/17: 131; 04/20/17: 163 * Discontinued Heparin 04/23/17 * Monitor 4.) Dehydration * Lactated Ringer's 1,000 mls @125 mls/hr IV 5.) Heartburn * Maalox 30ml PO BID PRN 6.) Transaminitis secondary to Alcohol * Hepatitis panel negative * HIV Antibody Screen: negative * Abdominal US (03/01/17): CBD 10.6 mm dilated common duct 7.) Abnormal urinalysis * urine culture (04/20/17): No growth * urine culture (04/21/17) Probable contamination 8.) Tobacco Abuse * Nicoderm 1 patch TD daily 9.) Prophylaxis * SCD * Pepcid 20mg BID <Rafita Parnell - Last Filed: 05/22/17 14:47> Objective - Vital Signs/Intake and Output Vital Signs (last 24 hours): Temp Pulse Resp BP Pulse Ox 98.4 F 94 H 20 106/72 97 04/25/17 16:00 04/25/17 16:00 04/25/17 16:00 04/25/17 16:00 04/25/17 16:00 - Labs Labs: 04/25/17 06:35 04/25/17 06:35 PT 10.2 SECONDS (9.7-12.2) 04/20/17 12:06 INR 0.9 04/20/17 12:06 Attending/Attestation - Attestation I have personally seen and examined this patient.: Yes I have fully participated in the care of the patient.: Yes I have reviewed all pertinent clinical information, including history, physical exam and plan: Yes Notes (Text): Patient seen and examined with the resident. Agree with the resident's evaluation, assessment and plan. 1.) Pancreatitis secondary to Alcohol 2.) Hypokalemia 3.) Decreased Platelets 4.) Dehydration 5.) Transaminitis secondary to Alcohol
[2017-04-24 07:36] LABS: BASO % 0.4 % (0.0-2.0); EOS # 0.1 K/uL (0.0-0.7); EOS % 1.6 % (0.0-4.0); HEMATOCRIT 43.8 % (35.0-51.0); LYMPH # 1.1 K/uL (1.0-4.3); LYMPH % 16.3 % (20.0-40.0); MEAN CORPUSCULAR HEMOGLOBIN 27.1 pg (27.0-31.0); MEAN CORPUSCULAR HGB CONC 33.4 g/dL (33.0-37.0); MEAN PLATELET VOLUME 9.6 fL (7.2-11.7); MONO # 0.6 K/uL (0.0-0.8); MONO % 8.3 % (0.0-10.0); RED CELL DISTRIBUTION WIDTH 20.5 % (11.5-14.5); WHITE BLOOD COUNT 6.9 K/uL (4.8-10.8)
[2017-04-24 07:45] LABS: CHLORIDE 98 mmol/L (98-107)
[2017-04-24 07:46] LABS: POTASSIUM 3.7 mmol/L (3.6-5.2); SODIUM 132 mmol/L (132-148)
[2017-04-24 07:48] LABS: ALKALINE PHOSPHATASE 56 U/L (38-126); ALT/SGPT 45 U/L (21-72); AST/SGOT 44 U/L (17-59); BLOOD UREA NITROGEN 6 mg/dL (9-20); CARBON DIOXIDE 24 mmol/L (22-30); GFR AFRICAN-AMERICAN > 60; GLUCOSE,RANDOM 113 mg/dL (75-110); TOTAL PROTEIN 6.7 g/dL (6.3-8.3)
[2017-04-24 07:49] LABS: CALCIUM 9.5 mg/dl (8.6-10.4); MAGNESIUM 1.8 mg/dL (1.6-2.3); PHOSPHOROUS 2.7 mg/dL (2.5-4.5)
[2017-04-24] MEDS: HYDROmorphone 1 mg/ml ISec IVP PRN (08:11)
[2017-04-24] MEDS: Lactated Ringer's 1,000 ML IV SCH ×3 (08:16→23:10)
--- NOTE | 2017-04-24 08:37 | CP.PCM.PN ---
<Syed Encinas - Last Filed: 04/24/17 16:39> Subjective - Date & Time of Evaluation Date of Evaluation: 04/24/17 Time of Evaluation: 07:30 - Subjective Subjective: PGY4 GI Fellow Progress Note Patient seen and examined bedside this morning. The patient states that he continues to have abdominal pain which is coming in waves. Pain very severe last night. Passing flatus, still no BM. Pain mostly located in the lower quadrants and B/L flanks. Noted to be eating breakfast without issue and very comfortable prior to my visit. 12 system ROS performed and negative except where stated. Objective - Vital Signs/Intake and Output Vital Signs (last 24 hours): Temp Pulse Resp BP Pulse Ox 98.7 F 93 H 20 105/71 96 04/24/17 07:36 04/24/17 07:36 04/24/17 07:36 04/24/17 07:36 04/24/17 07:36 Intake and Output: 04/24/17 04/24/17 06:59 18:59 Intake Total 2440 Output Total 800 Balance 1640 - Medications Medications: Current Medications Al Hydrox/Mg Hydrox/Simethicone (Maalox 30 Ml) 30 ml PO BID PRN PRN Reason: Indigestion / Heartburn Last Admin: 04/23/17 15:06 Dose: 30 ml Hydromorphone HCl (Dilaudid) 1 mg IVP Q4H PRN PRN Reason: Pain, moderate (4-7) Last Admin: 04/24/17 08:11 Dose: 1 mg Lactated Ringer's (Lactated Ringer's) 1,000 mls @ 125 mls/hr IV .Q8H [facility] Last Admin: 04/24/17 08:16 Dose: Not Given Lorazepam (Ativan) 1 mg IVP Q6H PRN PRN Reason: Symptoms of alcohol withdrawl Last Admin: 04/22/17 06:50 Dose: 1 mg Nicotine (Nicoderm Cq) 1 patch TD DAILY [facility] Last Admin: 04/23/17 10:54 Dose: 1 patch Ondansetron HCl (Zofran Inj) 4 mg IVP Q6H PRN PRN Reason: nausea Pantoprazole Sodium (Protonix Inj) 40 mg IVP DAILY [facility] Last Admin: 04/23/17 10:31 Dose: 40 mg Polyethylene Glycol (Miralax) 17 gm PO BID [facility] Last Admin: 04/23/17 18:50 Dose: 17 gm - Labs Labs: 04/24/17 07:18 04/24/17 07:18 PT 10.2 SECONDS (9.7-12.2) 04/20/17 12:06 INR 0.9 04/20/17 12:06 - Constitutional Appears: Non-toxic, No Acute Distress - Eye Exam Eye Exam: EOMI, PERRL - ENT Exam ENT Exam: Mucous Membranes Moist - Respiratory Exam Respiratory Exam: Clear to Ausculation Bilateral. absent: Rales, Rhonchi, Wheezes - Cardiovascular Exam Cardiovascular Exam: RRR, +S1, +S2 - GI/Abdominal Exam GI & Abdominal Exam: Distended, Soft, Tenderness (RLQ/LLQ), Hypoactive Bowel Sounds. absent: Firm, Guarding, Rigid, Organomegaly - Extremities Exam Extremities Exam: Normal Inspection. absent: Pedal Edema - Neurological Exam Neurological Exam: Alert, Awake, Oriented x3 - Psychiatric Exam Psychiatric exam: Normal Affect, Normal Mood - Skin Skin Exam: Dry, Warm Assessment and Plan - Assessment and Plan (Free Text) Assessment: Patient is a 52yo male with PMHx significant for recurrent pancreatitis, complicated diverticulitis with perforation s/p partial colectomy w colostomy and eventual reversal/reanastamosis, tobacco abuse who presented to the ED with epigastric pain. -Acute pancreatitis -Constipation Plan: -Plain film reviewed with right sided stool noted -Miralax 17g PO BID -Repeat CT with PO/IV contrast given persistent discomfort - the patient DOES NOT have an iodine allergy and has tolerated PO and IV contrast previously -Would continue IVF LR@150cc/hr -Antiemetics/analgesia per primary service - would back off on opiates in light of constipation -Heparin held -Monitor clinical course <Rustam Deleon - Last Filed: 04/24/17 17:51> Objective - Vital Signs/Intake and Output Vital Signs (last 24 hours): Temp Pulse Resp BP Pulse Ox 98.0 F 95 H 20 122/86 96 04/24/17 15:06 04/24/17 15:06 04/24/17 15:06 04/24/17 15:06 04/24/17 15:06 Intake and Output: 04/24/17 04/24/17 06:59 18:59 Intake Total 2440 1740 Output Total 800 Balance 1640 1740 - Medications Medications: Current Medications Acetaminophen (Tylenol 650mg/20.3ml Solution Ud) 650 mg PO Q6 PRN PRN Reason: Pain, moderate (4-7) Al Hydrox/Mg Hydrox/Simethicone (Maalox 30 Ml) 30 ml PO BID PRN PRN Reason: Indigestion / Heartburn Last Admin: 04/23/17 15:06 Dose: 30 ml Lactated Ringer's (Lactated Ringer's) 1,000 mls @ 125 mls/hr IV .Q8H [facility] Last Admin: 04/24/17 08:16 Dose: Not Given Lorazepam (Ativan) 1 mg IVP Q6H PRN PRN Reason: Symptoms of alcohol withdrawl Last Admin: 04/22/17 06:50 Dose: 1 mg Nicotine (Nicoderm Cq) 1 patch TD DAILY [facility] Last Admin: 04/24/17 09:50 Dose: 1 patch Ondansetron HCl (Zofran Inj) 4 mg IVP Q6H PRN PRN Reason: nausea Pantoprazole Sodium (Protonix Inj) 40 mg IVP DAILY [facility] Last Admin: 04/24/17 10:40 Dose: 40 mg Polyethylene Glycol (Miralax) 17 gm PO BID [facility] Last Admin: 04/24/17 09:55 Dose: 17 gm - Labs Labs: 04/24/17 07:18 04/24/17 07:18 PT 10.2 SECONDS (9.7-12.2) 04/20/17 12:06 INR 0.9 04/20/17 12:06 Attending/Attestation - Attestation I have personally seen and examined this patient.: Yes I have fully participated in the care of the patient.: Yes I have reviewed all pertinent clinical information, including history, physical exam and plan: Yes Notes (Text): 04/24/17 17:50 52 year old male with h/o recurrent pancreatitis, h/o diverticulitis with perforation s/p Dc, s/p reversal who presents with abdominal pain, found to have pancreatitis. 1. Acute pancreatitis 2. Constipation Plan: -continue IV hydration, pain control, advance diet as tolerated to low fat -etoh/smoking cessation advised -continue bowel regimen -slowly improving, but not progressing as well as would be expected -ct abdomen ordered to r/o ileus or other local complications
[2017-04-24] MEDS: POLYETHYLENE GLYCOL 3350 17 GM/Dose PACKET PO SCH ×2 (09:55→18:01)
[2017-04-24] MEDS ORDERED: Iohexol 240 (50 ml) PO ONE (10:30)
[2017-04-24] MEDS ORDERED: Acetaminophen 650mg/20.3ml solution UD PO PRN (12:21)
--- NOTE | 2017-04-24 18:24 | CT ---
PROCEDURE: CT Abdomen and Pelvis without intravenous contrast HISTORY: abdominal pain COMPARISON: 04/20/2017. TECHNIQUE: Technique. Contrast Dose: Radiation dose: Total exam DLP = 492 mGy-cm. This CT exam was performed using one or more of the following dose reduction techniques: Automated exposure control, adjustment of the mA and/or kV according to patient size, and/or use of iterative reconstruction technique. FINDINGS: LOWER THORAX: Unremarkable. LIVER: Unremarkable. No gross lesion or ductal dilatation. GALLBLADDER AND BILE DUCTS: Cholecystectomy. Dilated extrahepatic bile duct compatible with post cholecystectomy state.. PANCREAS: No significant interval change in peripancreatic fat infiltration compatible with acute pancreatitis. Re-demonstration of diffuse pancreatic calcifications.New roughly 5 centimeter somewhat encapsulated fluid collection in the greater omentum just inferior to the transverse colon probably of all vein pseudocyst. SPLEEN: Unremarkable. ADRENALS: Unremarkable. No mass. KIDNEYS AND URETERS: Unremarkable. No hydronephrosis. No solid mass. VASCULATURE: Unremarkable. No aortic aneurysm. BOWEL: Unremarkable. No obstruction. No gross mural thickening. APPENDIX: Unremarkable. Normal appendix. PERITONEUM: Unremarkable. No free fluid. No free air. LYMPH NODES: Unremarkable. No enlarged lymph nodes. BLADDER: Unremarkable. REPRODUCTIVE: Unremarkable. BONES: No acute fracture. OTHER FINDINGS: None. IMPRESSION: Cholecystectomy. Dilated extrahepatic bile duct compatible with post cholecystectomy state.. No significant interval change in peripancreatic fat infiltration compatible with acute pancreatitis. New roughly 5 centimeter somewhat encapsulated fluid collection in the greater omentum just inferior to the transverse colon probably of all vein pseudocyst. Re-demonstration of diffuse pancreatic calcifications.
--- NOTE | 2017-04-24 18:53 | CP.PCM.PN ---
<Libertad Almonte - Last Filed: 04/24/17 19:31> Subjective - Date & Time of Evaluation Date of Evaluation: 04/24/17 Time of Evaluation: 07:00 - Subjective Subjective: Medicine Note (PGY 1): Dr. Bradley's service Patient was seen and examined at bedside in the AM. Patient states the abdominal pain is mostly in his lower abdomen and it currently is a 8 out of 10. Patient states he also has some heartburn. Patient states he has been passing gas but is still very constipated as he has not had a bowel movement. Patient denies chest pain, shortness of breath, dyspnea, nausea, or vomiting. Objective - Vital Signs/Intake and Output Vital Signs (last 24 hours): Temp Pulse Resp BP Pulse Ox 98.0 F 95 H 20 122/86 96 04/24/17 15:06 04/24/17 15:06 04/24/17 15:06 04/24/17 15:06 04/24/17 15:06 Intake and Output: 04/24/17 04/24/17 06:59 18:59 Intake Total 2440 1740 Output Total 800 Balance 1640 1740 - Medications Medications: Current Medications Acetaminophen (Tylenol 650mg/20.3ml Solution Ud) 650 mg PO Q6 PRN PRN Reason: Pain, moderate (4-7) Al Hydrox/Mg Hydrox/Simethicone (Maalox 30 Ml) 30 ml PO BID PRN PRN Reason: Indigestion / Heartburn Last Admin: 04/23/17 15:06 Dose: 30 ml Lactated Ringer's (Lactated Ringer's) 1,000 mls @ 125 mls/hr IV .Q8H [facility] Last Admin: 04/24/17 15:10 Dose: Not Given Lorazepam (Ativan) 1 mg IVP Q6H PRN PRN Reason: Symptoms of alcohol withdrawl Last Admin: 04/22/17 06:50 Dose: 1 mg Nicotine (Nicoderm Cq) 1 patch TD DAILY [facility] Last Admin: 04/24/17 09:50 Dose: 1 patch Ondansetron HCl (Zofran Inj) 4 mg IVP Q6H PRN PRN Reason: nausea Pantoprazole Sodium (Protonix Inj) 40 mg IVP DAILY [facility] Last Admin: 04/24/17 10:40 Dose: 40 mg Polyethylene Glycol (Miralax) 17 gm PO BID [facility] Last Admin: 04/24/17 18:01 Dose: Not Given - Labs Labs: 04/24/17 07:18 04/24/17 07:18 PT 10.2 SECONDS (9.7-12.2) 04/20/17 12:06 INR 0.9 04/20/17 12:06 - Constitutional Appears: No Acute Distress - Head Exam Head Exam: NORMAL INSPECTION, NORMOCEPHALIC - Eye Exam Eye Exam: Normal appearance - ENT Exam ENT Exam: Mucous Membranes Moist - Respiratory Exam Respiratory Exam: Clear to Ausculation Bilateral, NORMAL BREATHING PATTERN. absent: Rales, Rhonchi, Wheezes - Cardiovascular Exam Cardiovascular Exam: REGULAR RHYTHM, +S1, +S2. absent: JVD - GI/Abdominal Exam GI & Abdominal Exam: Distended, Firm, Tenderness (tenderness to lower abdmomen ) , Normal Bowel Sounds - Extremities Exam Extremities Exam: Full ROM. absent: Calf Tenderness, Joint Swelling, Pedal Edema, Tenderness - Neurological Exam Neurological Exam: Alert, Awake, Oriented x3 - Skin Skin Exam: Normal Color, Warm. absent: Rash Assessment and Plan - Assessment and Plan (Free Text) Assessment: 52 year old male the past medical history of pancreatitis and diverticulitis presents to the ED with pancreatitis. Plan: 1.) Pancreatitis secondary to Alcohol * Liquid Diet * Dilaudid 1mg q4h PRN for pain * Dilaudid 2mg q4h one time dose for pain (04/22/17) * Consult Gastroenterology: Dr. Fisher --> help appreciated * Abdomen/Bladder Ultrasound (04/20/17): Fatty infiltration of the liver. No evidence of biliary obstruction. Status post cholecystectomy. * Abdomen/Pelvis CT (04/20/17): Findings consistent with acute uncomplicated pancreatitis superimposed upon chronic pancreatitis. Mural thickening of 2nd and 3rd duodenum and mild thickening of proximal jejunal loops. Nonspecific but likely secondary to the peripancreatic inflammatory change. Status post cholecystectomy and dilated common bile duct but no intrahepatic biliary dilatation. Fatty infiltration of the liver. * Cholesterol:100; LDL: <30; HDL:70; Triglycerides: 40 * Lipase on admission: 1434 * Lipase (04/20/17): 140 * Abdominal X-ray (04/23/17): Interval increase stool retention right colon most notable. No mechanical bowel obstruction appreciated. * Dulcolax 5mg PO * Simethicone 40mg PO QID * f/u Repeat CT scan 2.) Hypokalemia * replete potassium * f/u K+ and Mag+ 3.) Thrombocytopenia * 04/24/17:123; 04/23/17: 88; 04/22/17: 101; 04/21/17: 131; 04/20/17: 163 * Discontinued Heparin 04/23/17 * f/u heparin induced thrombocytopenia ABs * Monitor 4.) Dehydration * Lactated Ringer's 1,000 mls @125 mls/hr IV 5.) Heartburn * Maalox 30ml PO BID PRN 6.) Transaminitis secondary to Alcohol * Hepatitis panel negative * HIV Antibody Screen: negative * Abdominal US (03/01/17): CBD 10.6 mm dilated common duct 7.) Abnormal urinalysis * urine culture (04/20/17): No growth * urine culture (04/21/17) Probable contamination 8.) Tobacco Abuse * Nicoderm 1 patch TD daily 9.) Prophylaxis * SCD * Pepcid 20mg BID <Laurel Bradley V - Last Filed: 04/26/17 01:58> Objective - Vital Signs/Intake and Output Vital Signs (last 24 hours): Temp Pulse Resp BP Pulse Ox 98.4 F 94 H 20 106/72 97 04/25/17 16:00 04/25/17 16:00 04/25/17 16:00 04/25/17 16:00 04/25/17 16:00 Intake and Output: 04/25/17 04/26/17 18:59 06:59 Intake Total 360 Balance 360 - Labs Labs: 04/25/17 06:35 04/25/17 06:35 PT 10.2 SECONDS (9.7-12.2) 04/20/17 12:06 INR 0.9 04/20/17 12:06 Assessment and Plan (1) Chronic pancreatitis Status: Acute (2) Cholelithiasis Status: Chronic (3) Hypokalemia Status: Resolved (4) GERD (gastroesophageal reflux disease) Status: Acute (5) Tobacco abuse Status: Chronic (6) Dehydration Status: Resolved (7) Hypercalcemia Status: Acute (8) Transaminitis Status: Resolved (9) Abnormal urinalysis Status: Resolved (10) Prophylactic measure Status: Acute Attending/Attestation - Attestation I have personally seen and examined this patient.: Yes I have fully participated in the care of the patient.: Yes I have reviewed all pertinent clinical information, including history, physical exam and plan: Yes Notes (Text): This is late computer entry for 04/24/17. Patient seen, examined and case discussed with day-time advertising internship. Patient seen in the afternoon during rounds. Patient was seen by GI earlier in the day. Patient reporting persistent pain but appears comfortable at bedside. Patient ordered for CT abdomen/pelvis with contrast, noted by GI fellow has tolerated contrast in the past given persistent abdominal pain. Awaiting for report at time of my exam. Patient is currently on liquid diet and on IV fluids. Will follow-up with GI for further recommendations. Platelets are improving
[2017-04-24] MEDS: Simethicone 40 mg/0.6 ml Liquid (30 ml) PO SCH ×2 (22:11→22:44)
[2017-04-25 07:08] LABS: BASO % 0.5 % (0.0-2.0); EOS # 0.2 K/uL (0.0-0.7); EOS % 2.9 % (0.0-4.0); HEMATOCRIT 44.1 % (35.0-51.0); LYMPH # 1.3 K/uL (1.0-4.3); MEAN CELL VOLUME 81.8 fL (80.0-94.0); MEAN PLATELET VOLUME 9.3 fL (7.2-11.7); MONO # 0.9 K/uL (0.0-0.8); MONO % 11.9 % (0.0-10.0); RED CELL DISTRIBUTION WIDTH 21.2 % (11.5-14.5); WHITE BLOOD COUNT 7.5 K/uL (4.8-10.8)
[2017-04-25 07:13] LABS: CHLORIDE 98 mmol/L (98-107); SODIUM 134 mmol/L (132-148)
[2017-04-25 07:14] LABS: POTASSIUM 4.1 mmol/L (3.6-5.2)
[2017-04-25 07:16] LABS: ALKALINE PHOSPHATASE 66 U/L (38-126); ALT/SGPT 56 U/L (21-72); AST/SGOT 50 U/L (17-59); BILIRUBIN,TOTAL 0.9 mg/dL (0.2-1.3); BLOOD UREA NITROGEN 8 mg/dL (9-20); CARBON DIOXIDE 26 mmol/L (22-30); GFR AFRICAN-AMERICAN > 60; GLUCOSE,RANDOM 124 mg/dL (75-110); TOTAL PROTEIN 7.1 g/dL (6.3-8.3)
--- NOTE | 2017-04-25 07:27 | CP.PCM.PN ---
<Syed Encinas - Last Filed: 04/25/17 11:55> Subjective - Date & Time of Evaluation Date of Evaluation: 04/25/17 Time of Evaluation: 06:45 - Subjective Subjective: PGY4 GI Fellow Progress Note Patient seen and examined bedside this morning. Patient appears very comfortable and is sleeping without issue prior to waking him up. The patient states that he continues to have RLQ discomfort. Passed large volume of liquid stool and claims he drank a "gallon of laxative" yesterday, however no order/ administration of GoLytely is noted in our EMR. He denies any fever, chills, nausea, vomiting. 12 system ROS performed and negative except where stated. Objective - Vital Signs/Intake and Output Vital Signs (last 24 hours): Temp Pulse Resp BP Pulse Ox 99.1 F 89 20 117/82 98 04/24/17 23:24 04/24/17 23:24 04/24/17 23:24 04/24/17 23:24 04/24/17 23:24 Intake and Output: 04/25/17 04/25/17 06:59 18:59 Intake Total 700 Balance 700 - Medications Medications: Current Medications Acetaminophen (Tylenol 650mg/20.3ml Solution Ud) 650 mg PO Q6 PRN PRN Reason: Pain, moderate (4-7) Al Hydrox/Mg Hydrox/Simethicone (Maalox 30 Ml) 30 ml PO BID PRN PRN Reason: Indigestion / Heartburn Last Admin: 04/23/17 15:06 Dose: 30 ml Lactated Ringer's (Lactated Ringer's) 1,000 mls @ 125 mls/hr IV .Q8H [facility] Last Admin: 04/24/17 23:10 Dose: Not Given Lorazepam (Ativan) 1 mg IVP Q6H PRN PRN Reason: Symptoms of alcohol withdrawl Last Admin: 04/22/17 06:50 Dose: 1 mg Nicotine (Nicoderm Cq) 1 patch TD DAILY [facility] Last Admin: 04/24/17 09:50 Dose: 1 patch Ondansetron HCl (Zofran Inj) 4 mg IVP Q6H PRN PRN Reason: nausea Pantoprazole Sodium (Protonix Inj) 40 mg IVP DAILY [facility] Last Admin: 04/24/17 10:40 Dose: 40 mg Polyethylene Glycol (Miralax) 17 gm PO BID [facility] Last Admin: 04/24/17 18:01 Dose: Not Given Simethicone (Mylicon Chew Tab) 80 mg PO QID [facility] - Labs Labs: 04/25/17 06:35 04/24/17 07:18 PT 10.2 SECONDS (9.7-12.2) 04/20/17 12:06 INR 0.9 04/20/17 12:06 - Constitutional Appears: Non-toxic, No Acute Distress - Eye Exam Eye Exam: EOMI, PERRL - ENT Exam ENT Exam: Mucous Membranes Moist - Respiratory Exam Respiratory Exam: Clear to Ausculation Bilateral. absent: Rales, Rhonchi, Wheezes - Cardiovascular Exam Cardiovascular Exam: RRR, +S1, +S2 - GI/Abdominal Exam GI & Abdominal Exam: Guarding (voluntary), Soft, Tenderness (RLQ), Normal Bowel Sounds. absent: Distended, Firm, Rigid, Organomegaly - Extremities Exam Extremities Exam: Normal Inspection. absent: Pedal Edema - Neurological Exam Neurological Exam: Alert, Awake, Oriented x3 - Psychiatric Exam Psychiatric exam: Normal Affect, Normal Mood - Skin Skin Exam: Dry, Warm Assessment and Plan - Assessment and Plan (Free Text) Assessment: Patient is a 52yo male with PMHx significant for recurrent pancreatitis, complicated diverticulitis with perforation s/p partial colectomy w colostomy and eventual reversal/reanastamosis, tobacco abuse who presented to the ED with epigastric pain. -Acute pancreatitis -Constipation, resolved Plan: -CT A/P with PO contrast noted; possible pseudocyst formation and changes c/w chronic pancreatitis; no other acute findings and nothing to clearly explain patients RLQ discomfort -Continue Miralax 17g PO QD -Diet as tolerated -Would hold off on opiate narcotics -Encourage abstinence from EtOH and tobacco -No further recommendations at this time. Please reconsult if needed. <Shayne Fisher - Last Filed: 04/25/17 13:11> Objective - Vital Signs/Intake and Output Vital Signs (last 24 hours): Temp Pulse Resp BP Pulse Ox 98.3 F 83 20 116/82 97 04/25/17 08:00 04/25/17 08:00 04/25/17 08:00 04/25/17 08:00 04/25/17 08:00 Intake and Output: 04/25/17 04/25/17 06:59 18:59 Intake Total 700 Balance 700 - Medications Medications: Current Medications Acetaminophen (Tylenol 650mg/20.3ml Solution Ud) 650 mg PO Q6 PRN PRN Reason: Pain, moderate (4-7) Al Hydrox/Mg Hydrox/Simethicone (Maalox 30 Ml) 30 ml PO BID PRN PRN Reason: Indigestion / Heartburn Last Admin: 04/23/17 15:06 Dose: 30 ml Lactated Ringer's (Lactated Ringer's) 1,000 mls @ 125 mls/hr IV .Q8H [facility] Last Admin: 04/25/17 09:23 Dose: Not Given Lorazepam (Ativan) 1 mg IVP Q6H PRN PRN Reason: Symptoms of alcohol withdrawl Last Admin: 04/22/17 06:50 Dose: 1 mg Nicotine (Nicoderm Cq) 1 patch TD DAILY [facility] Last Admin: 04/25/17 10:19 Dose: 1 patch Ondansetron HCl (Zofran Inj) 4 mg IVP Q6H PRN PRN Reason: nausea Pantoprazole Sodium (Protonix Inj) 40 mg IVP DAILY [facility] Last Admin: 04/25/17 10:20 Dose: 40 mg Polyethylene Glycol (Miralax) 17 gm PO DAILY [facility] Last Admin: 04/25/17 10:19 Dose: Not Given Simethicone (Mylicon Chew Tab) 80 mg PO QID [facility] Last Admin: 04/25/17 10:18 Dose: 80 mg - Labs Labs: 04/25/17 06:35 04/25/17 06:35 PT 10.2 SECONDS (9.7-12.2) 04/20/17 12:06 INR 0.9 04/20/17 12:06 Attending/Attestation - Attestation I have personally seen and examined this patient.: Yes I have fully participated in the care of the patient.: Yes I have reviewed all pertinent clinical information, including history, physical exam and plan: Yes Notes (Text): 04/25/17 13:07 I have seen and examined patient with GI fellow. No acute events overnight, he is seen resting in bed comfortably complaining of excessive gas. He denies nausea, vomiting, diarrhea, fever/chills. Tolerating PO diet without difficulty , though initially did experience post prandial discomfort following breakfast today. Acute on chronic pancreatitis secondary to ETOH use Repeat CT imaging reviewed by me, showing no evolution of underlying pancreatitis or necrotic features Constipation - Advance diet to low fat as tolerated - Suggest use of pancreatic enzyme supplementation prior to meals - Maintain bowel regimen to prevent constipation - Would suggest patient undergo elective outpatient EUS given chronic pancreatitis with dilation of PD - No further inpatient GI intervention planned, if tolerating diet from GI perspective ok to discharge home. Will sign off case, please reconsult as necessary, thank you.
--- NOTE | 2017-04-25 07:40 | CP.PCM.PN ---
Objective - Vital Signs/Intake and Output Vital Signs (last 24 hours): Temp Pulse Resp BP Pulse Ox 99.1 F 89 20 117/82 98 04/24/17 23:24 04/24/17 23:24 04/24/17 23:24 04/24/17 23:24 04/24/17 23:24 Intake and Output: 04/25/17 04/25/17 06:59 18:59 Intake Total 700 Balance 700 - Medications Medications: Current Medications Acetaminophen (Tylenol 650mg/20.3ml Solution Ud) 650 mg PO Q6 PRN PRN Reason: Pain, moderate (4-7) Al Hydrox/Mg Hydrox/Simethicone (Maalox 30 Ml) 30 ml PO BID PRN PRN Reason: Indigestion / Heartburn Last Admin: 04/23/17 15:06 Dose: 30 ml Lactated Ringer's (Lactated Ringer's) 1,000 mls @ 125 mls/hr IV .Q8H [facility] Last Admin: 04/24/17 23:10 Dose: Not Given Lorazepam (Ativan) 1 mg IVP Q6H PRN PRN Reason: Symptoms of alcohol withdrawl Last Admin: 04/22/17 06:50 Dose: 1 mg Nicotine (Nicoderm Cq) 1 patch TD DAILY [facility] Last Admin: 04/24/17 09:50 Dose: 1 patch Ondansetron HCl (Zofran Inj) 4 mg IVP Q6H PRN PRN Reason: nausea Pantoprazole Sodium (Protonix Inj) 40 mg IVP DAILY [facility] Last Admin: 04/24/17 10:40 Dose: 40 mg Polyethylene Glycol (Miralax) 17 gm PO DAILY [facility] Simethicone (Mylicon Chew Tab) 80 mg PO QID [facility] - Labs Labs: 04/25/17 06:35 04/25/17 06:35 PT 10.2 SECONDS (9.7-12.2) 04/20/17 12:06 INR 0.9 04/20/17 12:06
[2017-04-25 08:08] VITALS: O2SAT 97
[2017-04-25] MEDS: Lactated Ringer's 1,000 ML IV SCH (09:23)
[2017-04-25] MEDS ORDERED: POLYETHYLENE GLYCOL 3350 17 GM/Dose PACKET PO SCH (10:00)
[2017-04-25] MEDS: Simethicone 80 mg Chewtab PO SCH ×3 (10:18→18:00)
--- NOTE | 2017-04-25 15:18 | CP.PCM.DIS ---
<Libertad Almonte - Last Filed: 04/25/17 18:14> Provider - Provider Date of Admission: 04/20/17 04:45 Attending physician: Rafita Parnell MD Time Spent in preparation of Discharge (in minutes): 40 Diagnosis - Discharge Diagnosis (1) Pancreatitis Status: Chronic Priority: High Comment: See hospital summary for further details. (2) Thrombocytopenia Status: Resolved Comment: See hospital summary for further details. (3) Hypokalemia Status: Resolved Comment: See hospital summary for further details. (4) Alcohol abuse Status: Chronic Comment: See hospital summary for further details. (5) Heartburn symptom Status: Resolved Comment: See hospital summary for further details. (6) Transaminitis Status: Resolved Comment: See hospital summary for further details. (7) Abnormal urinalysis Status: Resolved Comment: See hospital summary for further details. (8) Dehydration Status: Resolved Comment: See hospital summary for further details. (9) Tobacco abuse Status: Chronic Comment: See hospital summary for further details. Hospital Course - Lab Results Lab Results: Micro Results 04/21/17 Unknown Urine Urine Culture - Final 10-50,000 CFU/ML. MULTIPLE SPECIES. PROBABLE CONTAMINATION. 04/20/17 Unknown Urine Urine Culture - Final No Growth (<1,000 CFU/ML) Most Recent Lab Values WBC 7.5 K/uL (4.8-10.8) 04/25/17 06:35 RBC 5.38 Mil/uL (4.40-5.90) 04/25/17 06:35 Hgb 14.6 g/dL (12.0-18.0) 04/25/17 06:35 Hct 44.1 % (35.0-51.0) 04/25/17 06:35 MCV 81.8 fL (80.0-94.0) 04/25/17 06:35 MCH 27.0 pg (27.0-31.0) 04/25/17 06:35 MCHC 33.0 g/dL (33.0-37.0) 04/25/17 06:35 RDW 21.2 % (11.5-14.5) H 04/25/17 06:35 Plt Count 163 K/uL (130-400) 04/25/17 06:35 MPV 9.3 fL (7.2-11.7) 04/25/17 06:35 Neut % (Auto) 67.7 % (50.0-75.0) 04/25/17 06:35 Lymph % (Auto) 17.0 % (20.0-40.0) L 04/25/17 06:35 [place] % (Auto) 11.9 % (0.0-10.0) H 04/25/17 06:35 Eos % (Auto) 2.9 % (0.0-4.0) 04/25/17 06:35 Baso % (Auto) 0.5 % (0.0-2.0) 04/25/17 06:35 Neut # 5.1 K/uL (1.8-7.0) 04/25/17 06:35 Lymph # 1.3 K/uL (1.0-4.3) 04/25/17 06:35 [place] # 0.9 K/uL (0.0-0.8) H 04/25/17 06:35 Eos # 0.2 K/uL (0.0-0.7) 04/25/17 06:35 Baso # 0.0 K/uL (0.0-0.2) 04/25/17 06:35 Neutrophils % (Manual) 90 % (50-75) H 04/22/17 04:00 Band Neutrophils % 1 % (0-2) 04/22/17 04:00 Lymphocytes % (Manual) 5 % (20-40) L 04/22/17 04:00 Monocytes % (Manual) 4 % (0-10) 04/22/17 04:00 Platelet Estimate Slightly decreased (NORMAL) L 04/22/17 04:00 Large Platelets Present 04/22/17 04:00 Anisocytosis (manual) Slight 04/22/17 04:00 Tear Drop Cells Slight 04/21/17 09:03 Ovalocytes Slight 04/21/17 09:03 PT 10.2 SECONDS (9.7-12.2) 04/20/17 12:06 INR 0.9 04/20/17 12:06 Sodium 134 mmol/L (132-148) 04/25/17 06:35 Potassium 4.1 mmol/L (3.6-5.2) 04/25/17 06:35 Chloride 98 mmol/L (98-107) 04/25/17 06:35 Carbon Dioxide 26 mmol/L (22-30) 04/25/17 06:35 Anion Gap 13 (10-20) 04/25/17 06:35 BUN 8 mg/dL (9-20) L 04/25/17 06:35 Creatinine 0.7 MG/DL (0.8-1.5) L 04/25/17 06:35 Est GFR ( Amer) > 60 04/25/17 06:35 Est GFR (Non-Af Amer) > 60 04/25/17 06:35 Random Glucose 124 mg/dL (75-110) H 04/25/17 06:35 Calcium 10.0 mg/dl (8.6-10.4) 04/25/17 06:35 Phosphorus 3.0 mg/dL (2.5-4.5) 04/25/17 06:35 Magnesium 2.0 mg/dL (1.6-2.3) 04/25/17 06:35 Total Bilirubin 0.9 mg/dL (0.2-1.3) 04/25/17 06:35 Direct Bilirubin 0.6 mg/dL (0.0-0.4) H 04/20/17 13:54 AST 50 U/L (17-59) 04/25/17 06:35 ALT 56 U/L (21-72) 04/25/17 06:35 Alkaline Phosphatase 66 U/L (38-126) 04/25/17 06:35 Total Protein 7.1 g/dL (6.3-8.3) 04/25/17 06:35 Albumin 3.6 g/dL (3.5-5.0) 04/25/17 06:35 Globulin 3.5 gm/dL (2.2-3.9) 04/25/17 06:35 Albumin/Globulin Ratio 1.0 (1.0-2.1) 04/25/17 06:35 Triglycerides 40 mg/dL (0-149) 04/20/17 12:06 Cholesterol 100 mg/dL (0-199) 04/20/17 12:06 LDL Cholesterol Direct < 30 mg/dL (0-129) 04/20/17 12:06 HDL Cholesterol 70 mg/dL (30-70) 04/20/17 12:06 Lipase 140 U/L (23-300) 04/23/17 07:25 Calcium (PTH Intact) 10.6 mg/dL (8.6-10.3) H 04/20/17 12:06 PTH w/Ion &Tot Calcium 1 pg/mL (14-64) L 04/20/17 12:06 Urine Color Yellow (YELLOW) 04/21/17 18:59 Urine Clarity Clear (Clear) 04/21/17 18:59 Urine pH 7.0 (5.0-8.0) 04/21/17 18:59 Ur Specific [place] 1.012 (1.003-1.030) 04/21/17 18:59 Urine Protein 1+ mg/dL (NEGATIVE) H 04/21/17 18:59 Urine Glucose (UA) 1+ mg/dL (Normal) H 04/21/17 18:59 Urine Ketones 2+ mg/dL (NEGATIVE) H 04/21/17 18:59 Urine Blood 1+ (NEGATIVE) H 04/21/17 18:59 Urine Nitrate Negative (NEGATIVE) 04/21/17 18:59 Urine Bilirubin Negative (NEGATIVE) 04/21/17 18:59 Urine Urobilinogen Normal mg/dL (0.2-1.0) 04/21/17 18:59 Ur Leukocyte Esterase Neg Saranya/uL (Negative) 04/21/17 18:59 Urine WBC (Auto) < 1 /hpf (0-5) 04/21/17 18:59 Urine RBC (Auto) 1 /hpf (0-3) 04/21/17 18:59 Ur Squamous Epith Cells 1 /hpf (0-5) 04/20/17 05:31 Urine Bacteria Rare (<OCC) 04/20/17 05:31 Hyaline Casts >20 /lpf (0-2) H 04/20/17 05:31 IgG, Serum (MS) 39.2 mg/dL (4-86) 04/20/17 12:06 Urine Opiates Screen Positive (NEGATIVE) 04/20/17 14:56 Urine Methadone Screen Negative (NEGATIVE) 04/20/17 14:56 Ur Barbiturates Screen Negative (NEGATIVE) 04/20/17 14:56 Ur Phencyclidine Scrn Negative (NEGATIVE) 04/20/17 14:56 Ur Amphetamines Screen Negative (NEGATIVE) 04/20/17 14:56 U Benzodiazepines Scrn Negative (NEGATIVE) 04/20/17 14:56 U Oth Cocaine Metabols Negative (NEGATIVE) 04/20/17 14:56 U Cannabinoids Screen Negative (NEGATIVE) 04/20/17 14:56 Alcohol, Quantitative < 10 mg/dl (0-10) 04/20/17 12:06 Hepatitis A IgM Ab Negative (NEGATIVE) 04/20/17 12:06 Hep Bs Antigen Negative (NEGATIVE) 04/20/17 12:06 Hep B Core IgM Ab Negative (NEGATIVE) 04/20/17 12:06 Hepatitis C Antibody Negative (NEGATIVE) 04/20/17 12:06 HIV 1&2 Antibody Screen Negative (NEGATIVE) 04/20/17 12:06 - Hospital Course Hospital Course: 52 year old male the past medical history of pancreatitis and diverticulitis presents to the ED with pancreatitis. Patient states he started with nausea and vomiting on morning but thought it was the flu because his father had the flu. His symptoms became worse and he developed sharp abdominal pain that radiated to his back and was constant. Patient states it was an 11/10 and now after receiving the pain medications it is a 3/10. Patient states nothing makes the pain better or worse. Patient states he did not take anything for the pain. Patient states because of the pain he has not been able to eat or sleep. Patient states he has nausea, vomiting, headache, lightheadedness, dizzy, sweating, chills and palpitations. Patient states he has stopped drinking alcohol for the past 3 years but was admitting to the hospital for pancreatitis in early February of this year. Patient states he was not able to follow up with a primary care doctor or a staffing account manager because he was working in [facility]. Patient denies chest pain, shortness of breath , diarrhea or constipation. Patient was admitted to telemetry for monitoring. GI (Dr. Fisher) was consulted on the case. Per GI workup, patient completed: Abdomen/Bladder Ultrasound (04/20/17): Fatty infiltration of the liver. No evidence of biliary obstruction. Status post cholecystectomy. * Abdomen/Pelvis CT (04/20/17): Findings consistent with acute uncomplicated pancreatitis superimposed upon chronic pancreatitis. Mural thickening of 2nd and 3rd duodenum and mild thickening of proximal jejunal loops. Nonspecific but likely secondary to the peripancreatic inflammatory change. Status post cholecystectomy and dilated common bile duct but no intrahepatic biliary dilatation. Fatty infiltration of the liver. * Lipase on admission 04/20/17: 1434 * Lipase (04/25/17): 140 * Abdominal X-ray (04/23/17): Interval increase stool retention right colon most notable. No mechanical bowel obstruction appreciated. * Abdomen/Pelvis CT (04/24/17): Dilated extrahepatic bile duct compatible with post chlecystectomy state. No significant interval change in peripancreatic fat infiltration compatible with acute pancreatitis. New roughly 5 centimeter somewhat encapsulated fluid collection in the greater omentum just inferior to the transverse colon probably of all vein pseudocyst. Re-demonstration of diffuse pancreatic calcifications. * GI suggested patient to undergo elective outpatient endoscopic ultrasound given chronic pancreatitis with dilation of pseudocyst. If patient tolerates dinner tonight, patient may go home. Patient strongly recommended to follow up at the [facility] . Patient strongly advised to quit alcohol. Recommended for AA for alcohol cessation. Patient advised to quit tobacco use and recommended for over the counter nicotine patches for smoking cessation. No new perscriptions upon discharge. Patient should return to ED immediately if symptoms return or worsen. Instructions discussed with patient who understood and agreed. This is a summary of patient's hospitalization please refer to EMR for further details of the record. Discharge Exam - Head Exam Head Exam: NORMAL INSPECTION, NORMOCEPHALIC - Eye Exam Eye Exam: EOMI, Normal appearance, PERRL Pupil Exam: NORMAL ACCOMODATION - ENT Exam ENT Exam: Mucous Membranes Moist - Respiratory Exam Respiratory Exam: NORMAL BREATHING PATTERN - Cardiovascular Exam Cardiovascular Exam: REGULAR RHYTHM, RRR, +S1, +S2. absent: JVD - GI/Abdominal Exam GI & Abdominal Exam: Distended, Normal Bowel Sounds, Soft - Extremities Exam Extremities exam: normal inspection - Back Exam Back exam: NORMAL INSPECTION. absent: tenderness - Neurological Exam Neurological exam: Alert, Normal Gait, Oriented x3 - Psychiatric Exam Psychiatric exam: Normal Mood - Skin Skin Exam: Normal Color, Warm Discharge Plan - Follow Up Plan Condition: STABLE Disposition: HOME/ ROUTINE Instructions: How to Stop Smoking (DC), Pancreatitis (DC), Gallstones (DC), Low Fat Diet (DC), Hypokalemia (DC), Hypokalemia (GEN), Gastroesophageal Reflux Disease (DC), Abuse of Alcohol (DC), Acute Abdominal Pain (DC) Referrals: Clinic,Med Surg [Non-Staff] - <Laurel Bradley Darlene - Last Filed: 04/26/17 01:55> Provider - Provider Date of Admission: 04/20/17 04:45 Attending physician: Rafita Parnell MD Diagnosis - Discharge Diagnosis (1) Chronic pancreatitis Status: Acute (2) Cholelithiasis Status: Chronic (3) Hypokalemia Status: Resolved (4) GERD (gastroesophageal reflux disease) Status: Acute (5) Tobacco abuse Status: Chronic (6) Dehydration Status: Resolved (7) Hypercalcemia Status: Acute (8) Transaminitis Status: Resolved (9) Abnormal urinalysis Status: Resolved (10) Prophylactic measure Status: Acute Hospital Course - Lab Results Lab Results: Micro Results 04/21/17 Unknown Urine Urine Culture - Final 10-50,000 CFU/ML. MULTIPLE SPECIES. PROBABLE CONTAMINATION. 04/20/17 Unknown Urine Urine Culture - Final No Growth (<1,000 CFU/ML) Most Recent Lab Values WBC 7.5 K/uL (4.8-10.8) 04/25/17 06:35 RBC 5.38 Mil/uL (4.40-5.90) 04/25/17 06:35 Hgb 14.6 g/dL (12.0-18.0) 04/25/17 06:35 Hct 44.1 % (35.0-51.0) 04/25/17 06:35 MCV 81.8 fL (80.0-94.0) 04/25/17 06:35 MCH 27.0 pg (27.0-31.0) 04/25/17 06:35 MCHC 33.0 g/dL (33.0-37.0) 04/25/17 06:35 RDW 21.2 % (11.5-14.5) H 04/25/17 06:35 Plt Count 163 K/uL (130-400) 04/25/17 06:35 MPV 9.3 fL (7.2-11.7) 04/25/17 06:35 Neut % (Auto) 67.7 % (50.0-75.0) 04/25/17 06:35 Lymph % (Auto) 17.0 % (20.0-40.0) L 04/25/17 06:35 [place] % (Auto) 11.9 % (0.0-10.0) H 04/25/17 06:35 Eos % (Auto) 2.9 % (0.0-4.0) 04/25/17 06:35 Baso % (Auto) 0.5 % (0.0-2.0) 04/25/17 06:35 Neut # 5.1 K/uL (1.8-7.0) 04/25/17 06:35 Lymph # 1.3 K/uL (1.0-4.3) 04/25/17 06:35 [place] # 0.9 K/uL (0.0-0.8) H 04/25/17 06:35 Eos # 0.2 K/uL (0.0-0.7) 04/25/17 06:35 Baso # 0.0 K/uL (0.0-0.2) 04/25/17 06:35 Neutrophils % (Manual) 90 % (50-75) H 04/22/17 04:00 Band Neutrophils % 1 % (0-2) 04/22/17 04:00 Lymphocytes % (Manual) 5 % (20-40) L 04/22/17 04:00 Monocytes % (Manual) 4 % (0-10) 04/22/17 04:00 Platelet Estimate Slightly decreased (NORMAL) L 04/22/17 04:00 Large Platelets Present 04/22/17 04:00 Anisocytosis (manual) Slight 04/22/17 04:00 Tear Drop Cells Slight 04/21/17 09:03 Ovalocytes Slight 04/21/17 09:03 PT 10.2 SECONDS (9.7-12.2) 04/20/17 12:06 INR 0.9 04/20/17 12:06 Sodium 134 mmol/L (132-148) 04/25/17 06:35 Potassium 4.1 mmol/L (3.6-5.2) 04/25/17 06:35 Chloride 98 mmol/L (98-107) 04/25/17 06:35 Carbon Dioxide 26 mmol/L (22-30) 04/25/17 06:35 Anion Gap 13 (10-20) 04/25/17 06:35 BUN 8 mg/dL (9-20) L 04/25/17 06:35 Creatinine 0.7 MG/DL (0.8-1.5) L 04/25/17 06:35 Est GFR ( Amer) > 60 04/25/17 06:35 Est GFR (Non-Af Amer) > 60 04/25/17 06:35 Random Glucose 124 mg/dL (75-110) H 04/25/17 06:35 Calcium 10.0 mg/dl (8.6-10.4) 04/25/17 06:35 Phosphorus 3.0 mg/dL (2.5-4.5) 04/25/17 06:35 Magnesium 2.0 mg/dL (1.6-2.3) 04/25/17 06:35 Total Bilirubin 0.9 mg/dL (0.2-1.3) 04/25/17 06:35 Direct Bilirubin 0.6 mg/dL (0.0-0.4) H 04/20/17 13:54 AST 50 U/L (17-59) 04/25/17 06:35 ALT 56 U/L (21-72) 04/25/17 06:35 Alkaline Phosphatase 66 U/L (38-126) 04/25/17 06:35 Total Protein 7.1 g/dL (6.3-8.3) 04/25/17 06:35 Albumin 3.6 g/dL (3.5-5.0) 04/25/17 06:35 Globulin 3.5 gm/dL (2.2-3.9) 04/25/17 06:35 Albumin/Globulin Ratio 1.0 (1.0-2.1) 04/25/17 06:35 Triglycerides 40 mg/dL (0-149) 04/20/17 12:06 Cholesterol 100 mg/dL (0-199) 04/20/17 12:06 LDL Cholesterol Direct < 30 mg/dL (0-129) 04/20/17 12:06 HDL Cholesterol 70 mg/dL (30-70) 04/20/17 12:06 Lipase 140 U/L (23-300) 04/23/17 07:25 Calcium (PTH Intact) 10.6 mg/dL (8.6-10.3) H 04/20/17 12:06 PTH w/Ion &Tot Calcium 1 pg/mL (14-64) L 06/24/17 12:06 Urine Color Yellow (YELLOW) 04/21/17 18:59 Urine Clarity Clear (Clear) 04/21/17 18:59 Urine pH 7.0 (5.0-8.0) 04/21/17 18:59 Ur Specific [place] 1.012 (1.003-1.030) 04/21/17 18:59 Urine Protein 1+ mg/dL (NEGATIVE) H 04/21/17 18:59 Urine Glucose (UA) 1+ mg/dL (Normal) H 04/21/17 18:59 Urine Ketones 2+ mg/dL (NEGATIVE) H 04/21/17 18:59 Urine Blood 1+ (NEGATIVE) H 04/21/17 18:59 Urine Nitrate Negative (NEGATIVE) 04/21/17 18:59 Urine Bilirubin Negative (NEGATIVE) 04/21/17 18:59 Urine Urobilinogen Normal mg/dL (0.2-1.0) 04/21/17 18:59 Ur Leukocyte Esterase Neg Saranya/uL (Negative) 04/21/17 18:59 Urine WBC (Auto) < 1 /hpf (0-5) 04/21/17 18:59 Urine RBC (Auto) 1 /hpf (0-3) 04/21/17 18:59 Ur Squamous Epith Cells 1 /hpf (0-5) 04/20/17 05:31 Urine Bacteria Rare (<OCC) 04/20/17 05:31 Hyaline Casts >20 /lpf (0-2) H 04/20/17 05:31 IgG, Serum (MS) 39.2 mg/dL (4-86) 04/20/17 12:06 Urine Opiates Screen Positive (NEGATIVE) 04/20/17 14:56 Urine Methadone Screen Negative (NEGATIVE) 04/20/17 14:56 Ur Barbiturates Screen Negative (NEGATIVE) 04/20/17 14:56 Ur Phencyclidine Scrn Negative (NEGATIVE) 04/20/17 14:56 Ur Amphetamines Screen Negative (NEGATIVE) 04/20/17 14:56 U Benzodiazepines Scrn Negative (NEGATIVE) 04/20/17 14:56 U Oth Cocaine Metabols Negative (NEGATIVE) 04/20/17 14:56 U Cannabinoids Screen Negative (NEGATIVE) 04/20/17 14:56 Alcohol, Quantitative < 10 mg/dl (0-10) 04/20/17 12:06 Hepatitis A IgM Ab Negative (NEGATIVE) 04/20/17 12:06 Hep Bs Antigen Negative (NEGATIVE) 04/20/17 12:06 Hep B Core IgM Ab Negative (NEGATIVE) 04/20/17 12:06 Hepatitis C Antibody Negative (NEGATIVE) 04/20/17 12:06 HIV 1&2 Antibody Screen Negative (NEGATIVE) 04/20/17 12:06 Attending/Attestation - Attestation I have personally seen and examined this patient.: Yes I have fully participated in the care of the patient.: Yes I have reviewed all pertinent clinical information, including history, physical exam and plan: Yes Notes (Text): This is late computer entry for 04/25/17. Patient seen, examined and case discussed with day-time resident. Patient seen during afternoon rounds. Patient is ambulating, in no acute distress, and denies acute complaints. Patient tolerated regular diet at dinner. Per GI, patient stable from their standpoint, recommended for outpatient endoscopic ultrasound. Patient counselled heavily to stop his alcohol use, recommended for AA to continue alcohol cessation and recommended for tobacco cessation and over the counter Nictone patches to assist in cessation. Discussed discharge order and instructions with day-time resident. Patient is medically stable for discharge. Recommended to establish care at the [facility] ([phone]) and follow-up with GI in regards for endoscopic ultrasound surveillance. Patient is agreeable to plan, verbalized understanding and agrees. Assessment/Plan (1) Chronic pancreatitis Assessment & Plan: GI Consult (Dr. Fisher) unit control clerk-->help appreciated Completed IV fluids Tolerating diet Per GI, stable from their standpoint, recommended for outpatient endoscopic ultrasound alcohol: <10 urine drug screen: +opiates Igg Suclass 4: pending Lipid panel: T, cholestrol: 100, LDL<30, HDL: 70 Lipase: 1434 Discussed with patient, he is aware is at risk for hemorrhagic pseudocyst and pancreatic cancer as sequela from recurrent pancreatitis and persistent alcohol use. Imagin04/24/17 cholecystectomy, Dilated extrahepatic bile compatible with post cholecystecomy state. No significant interval change in peripancreatic fat infiltation compatible with acute pancreatitis. New roughly 5cm somewha encapsulated fluid collection in great omentum just infection to transverse colon probably of all vein pseudocust. diffuse pancreatic calcifications 04/21/17 Abdomen Xray: no active disease Ab US (04/20/17): fatty infiltration of liver. No evidence of biliary obstruction. Status post cholecystecomy. Otherwise unremarkable. 04/20/17 Ct Abdomen/Pelvis: CT abdomen/pelvis (04/20/17): findings consistent with acute uncomplicated pancreatitis superimprosed upon chronic pancreatitis. Mural thickenining of the 2nd and 3rd duodenum and mild mural thickening of proximal jejunal loops. Peripancreatic inflammatory change. Status post post cholecystecomy with dilated common bile duct but no intrahepatic biliary dilatation. Fatty infiltration of the liver. 03/01/17 Ct abdomen/pelvis: Findings consistent with acute pancreatitis. Trace amount of free fluid in the upper abdomen. Foci of calcification in the pancreas consistent with chronic pancreatitis. Mild dilated main pancreatic duct. 05/27/16 MRCP: No pancreatic mass identified. Chronic pancreatitis. Mural thickening of the 2nd and 3rd portions of the duodenum, nonspecific. Mural thickening of the gastric fundus and body, nonspecific. Status: stablized (2) Cholelithiasis Assessment & Plan: GI Consult (Dr. Fisher) unit control clerk-->help appreciated alcohol: <10 urine drug screen: +opiates Igg Suclass 4: pending Lipid panel: T, cholestrol: 100, LDL<30, HDL: 70 Lipase: 1434 04/20/17 Ct Abdomen/Pelvis: CT abdomen/pelvis (04/20/17): findings consistent with acute uncomplicated pancreatitis superimprosed upon chronic pancreatitis. Mural thickenining of the 2nd and 3rd duodenum and mild mural thickening of proximal jejunal loops. Peripancreatic inflammatory change. Status post post cholecystecomy with dilated common bile duct but no intrahepatic biliary dilatation. Fatty infiltration of the liver. 03/01/17 Ct abdomen/pelvis: Findings consistent with acute pancreatitis. Trace amount of free fluid in the upper abdomen. Foci of calcification in the pancreas consistent with chronic pancreatitis. Mild dilated main pancreatic duct. 05/27/16 MRCP: No pancreatic mass identified. Chronic pancreatitis. Mural thickening of the 2nd and 3rd portions of the duodenum, nonspecific. Mural thickening of the gastric fundus and body, nonspecific. Status: Chronic (3) Hypokalemia Assessment & Plan: monitor and repleted during hospitalization normalized on day of discharge Status: stable (4) GERD (gastroesophageal reflux disease) Status: Acute OTC pepcid (5) Tobacco abuse Assessment & Plan: Counselled extensive tobacco cessation-->including cancer risk Advised OTC nictone patches to offset cost Status: Acute (6) Dehydration Assessment & Plan: Completed IV fluids euvolumic Tolerating solid diet Status: Acute (7) Hypercalcemia Assessment & Plan: normalizaed Status: Acute (8) Transaminitis Assessment & Plan: Monitor liver function tests likely secondary to alcohol Hepatitis panel: negative HIV: negative Ab US (04/20/17): fatty infiltration of liver. No evidence of biliary obstruction. Status post cholecystecomy. Otherwise unremarkable. 04/20/17 Ct Abdomen/Pelvis: CT abdomen/pelvis (04/20/17): findings consistent with acute uncomplicated pancreatitis superimprosed upon chronic pancreatitis. Mural thickenining of the 2nd and 3rd duodenum and mild mural thickening of proximal jejunal loops. Peripancreatic inflammatory change. Status post post cholecystecomy with dilated common bile duct but no intrahepatic biliary dilatation. Fatty infiltration of the liver. Abdominal US (03/01/17): CBD 10.6 mm dilated common duct Status: Acute (9) Abnormal urinalysis Assessment & Plan: urine culture (04/20/17: No growth Renal US (04/20/17): no mass noted in kidneys urine cytology: insufficient sample Status: Acute (10) Prophylactic measure Assessment & Plan: Protonix 40mg IV q daily d/c heparin 5000 units subq12 hours secondary to thrombocytopenia Dilaudid 1mg IV Q 4hours PRN Ativan 1mg IV Q 6 hour PRn alcohol withdrawal Nocoderm Cq 1 path TD daily Status: Acute
[2017-04-25 16:13] VITALS: BP 106/72; PULSE 94; TEMP 98.4
[2017-04-25] MEDS ORDERED: LIPASE/PROTEASE/AMYLASE 4,200 U ECC PO SCH (16:30)
[2017-04-27 20:15] LABS: HEPARIN-IND PLATELET AB Negative (Negative)
== END 2017-04-25 19:30 | disposition home or self-care (01) | DRG 204 ==
LOC: C.ER 02:51 → C.3T 04:45
PROVIDERS: ADMIT Family Medicine; ATTEND Internal Medicine
DX: K85.20 Alcohol induced acute pancreatitis without necrosis or infection (principal); D69.6 Thrombocytopenia, unspecified; K57.20 Diverticulitis of large intestine with perforation and abscess without bleeding; E83.52 Hypercalcemia; D75.82 Heparin induced thrombocytopenia (HIT); E86.0 Dehydration; E87.6 Hypokalemia; F10.188 Alcohol abuse with other alcohol-induced disorder; K86.0 Alcohol-induced chronic pancreatitis; I10 Essential (primary) hypertension; R74.0 Nonspecific elevation of levels of transaminase and lactic acid dehydrogenase [LDH]; R82.90 Unspecified abnormal findings in urine; K80.20 Calculus of gallbladder without cholecystitis without obstruction; K21.9 Gastro-esophageal reflux disease without esophagitis; F17.210 Nicotine dependence, cigarettes, uncomplicated; K59.00 Constipation, unspecified; T45.515A Adverse effect of anticoagulants, initial encounter; Z93.3 Colostomy status; Z90.49 Acquired absence of other specified parts of digestive tract